=== PATIENT | female | born 1980 | race American Indian/Alaskan Native ===

== ENCOUNTER 2021-04-28 23:36 | Inpatient (IN) | payer SELFPAY ==
[2021-04-29] MEDS ORDERED: ONDANSETRON 4 MG/2 ML INJ IV ONE (01:50)
[2021-04-29] MEDS ORDERED: MORPHINE 4 MG/1 ML INJ IV ONE (01:50)
[2021-04-29 02:37] LABS: Hematocrit 28.5 % (30.3-42.9); Hemoglobin 8.8 gm/dl (10.1-14.3); Mean Corpuscular HGB Conc 31 % (30-34); Mean Corpuscular Volume 74 fl (79-97); Platelet Count 348 K/mm3 (140-440); Red Blood Count 3.87 M/mm3 (3.65-5.03); Red Cell Distribution Width 16.5 % (13.2-15.2)
[2021-04-29 02:51] LABS: Calcium 8.9 mg/dL (8.4-10.2)
[2021-04-29] MEDS ORDERED: SODIUM CHLORIDE 0.9% 1000 ML 1,000 ML IV ONE ×3 (02:54→05:03)
[2021-04-29] MEDS ORDERED: INSULIN REGULAR, HUMAN 100 UNITS/1 ML IV ONE ×2 (03:28→08:00)
--- NOTE | 2021-04-29 03:37 | Emergency Department Report ---
<RONEL DUBON - Last Filed: 04/29/21 05:27> ED General Adult HPI - General Chief complaint: Skin/Abscess/Foreign Body Stated complaint: FEVER INFECTED BOIL PAIN Time Seen by Provider: 04/29/21 01:24 - Related Data Previous Rx's Medication Instructions Recorded Last Taken Type Efinaconazole [Jublia] 1 applic TP QDAY #4 [email or web address] 03/12/20 Unknown Rx Allergies Allergy/AdvReac Type Severity Reaction Status Date / Time No Known Allergies Allergy Verified 04/29/21 05:23 ED Past Medical Hx - Medications Home Medications: Home Medications Medication Instructions Recorded Confirmed Last Taken Type Efinaconazole [Jublia] 1 applic TP QDAY #4 [email or web address] 03/12/20 Unknown Rx ED Medical Decision Making - Lab Data Result diagrams: 04/29/21 01:54 04/29/21 04:48 - Medical Decision Making I saw this patient in conjunction with Lionel Crum. The patient has a large area of cellulitis to the right buttock. She is diabetic. Labs show a leukocytosis of 22,000, mild lactic acidosis, hyperglycemia, and acute kidney injury. The patient has a mild elevated anion gap of 22 and some venous acidosis of 7.28 so the hospitalist service wants the patient treated as DKA and placed in the ICU. The patient had a CT scan of the abdomen and pelvis that shows cellulitis without evidence of a drainable abscess or soft tissue gas. The patient has been given insulin and IV antibiotics. She will be admitted to the hospital for further evaluation and treatment and was accepted by Dr Wilks. ED Disposition Clinical Impression: Cellulitis and abscess of buttock, Hyperglycemia due to diabetes mellitus, JOMAR (acute kidney injury) Disposition: 01 HOME / SELF CARE / HOMELESS Condition: Stable Instructions: Diabetes Mellitus Type 2 in Adults (ED) Referrals: PRIMARY CARE, [Primary Care Provider] - 3-5 Days <LIONEL CRUM - Last Filed: 04/29/21 06:20> ED General Adult HPI - General Source: patient Mode of arrival: Wheelchair Limitations: No Limitations - History of Present Illness Initial comments: 40-year-old -[place] female patient presents with complaints of right buttock pain x1 week. Patient states it began with a bump on her right inner buttock that has been worsening now with swelling and severe pain to the area. She admits to fever and feeling weak. Patient states her highest temp at home was 101.4. She has history of diabetes and is noncompliant with medication. She denies any other past medical history. No abdominal pain per patient. Severity scale (0 -10): 10 ED Review of Systems ROS: Stated complaint: FEVER INFECTED BOIL PAIN Other details as noted in HPI Constitutional: fever, malaise, weakness. denies: diaphoresis Respiratory: denies: cough, shortness of breath Genitourinary: denies: urgency, dysuria, frequency, hematuria Musculoskeletal: denies: back pain Skin: as per HPI, change in color Neurological: denies: headache ED Past Medical Hx - Past Medical History Previous Medical History?: Yes Hx Diabetes: Yes - Surgical History Past Surgical History?: Yes Additional Surgical History: Right Hip - Social History Smoking Status: Never Smoker Substance Use Type: None (Denies illicit drug use) ED Physical Exam - General Limitations: No Limitations General appearance: alert, in no apparent distress, obese - Head Head exam: Present: atraumatic, normocephalic - Eye Eye exam: Present: normal appearance. Absent: scleral icterus - Respiratory Respiratory exam: Present: normal lung sounds bilaterally. Absent: respiratory distress - Cardiovascular Cardiovascular Exam: Present: regular rate, normal rhythm - GI/Abdominal GI/Abdominal exam: Present: soft. Absent: tenderness - Neurological Exam Neurological exam: Present: alert, oriented X3 - Psychiatric Psychiatric exam: Present: normal affect, normal mood - Skin Skin exam: Present: warm, dry, intact, erythema (Large area of erythema and induration noted to right lower buttock with significant tenderness to palpation) ED Course Vital Signs 04/28/21 04/28/21 04/29/21 23:42 23:45 02:11 Temperature 99.7 F H 99.7 F H Pulse Rate 76 74 Respiratory 18 16 16 Rate Blood Pressure 90/46 Blood Pressure 90/46 [Left] O2 Sat by Pulse 98 98 Oximetry 04/29/21 04/29/21 04/29/21 03:36 04:00 04:16 Temperature Pulse Rate Respiratory Rate Blood Pressure Blood Pressure [Left] O2 Sat by Pulse 96 97 97 Oximetry 04/29/21 04/29/21 04/29/21 04:30 04:46 05:00 Temperature Pulse Rate Respiratory Rate Blood Pressure 99/51 Blood Pressure [Left] O2 Sat by Pulse 96 95 95 Oximetry ED Medical Decision Making - Lab Data Result diagrams: 04/29/21 01:54 04/29/21 04:48 - Radiology Data Radiology results: report reviewed CT ABDOMEN AND PELVIS WITHOUT CONTRAST INDICATION / CLINICAL INFORMATION: Severe RIGHT buttocks infection with fever.. TECHNIQUE: Axial CT images were obtained through the abdomen and pelvis without IV contrast. All CT scans at this location are performed using CT dose reduction for ALARA by means of automated exposure control. COMPARISON: None available. FINDINGS: LOWER CHEST: Linear bibasilar atelectasis. LIVER: No significant abnormality. GALLBLADDER: Mildly contracted containing small amount of pneumobilia. No calcified stones. BILE DUCTS: Mild pneumobilia but no retained gallstones or biliary ductal dilatation. PANCREAS: No significant abnormality. SPLEEN: No significant abnormality. ADRENALS: No significant abnormality. RIGHT KIDNEY / URETER: No significant abnormality. LEFT KIDNEY / URETER: No significant abnormality. STOMACH / SMALL BOWEL: No significant abnormality. COLON: Moderate amount of fecal material throughout the colon. No acute abnormality. APPENDIX: No significant abnormality. PERITONEUM: No free fluid. No free air. No fluid collection. LYMPH NODES: No significant adenopathy. AORTA / ARTERIES: No significant abnormality. IVC / VEINS: IVC filter is present. One of the limbs extends into the abdominal aorta as seen on axial series 5 images 87-89 109. In addition several of the anterior limbs extend into the transverse portion of the duodenum. URINARY BLADDER: No significant abnormality. REPRODUCTIVE ORGANS: No significant abnormality. ADDITIONAL FINDINGS: Moderate soft tissue edema and induration of the right buttock with associated skin thickening. No drainable fluid collection or soft tissue gas. SKELETAL SYSTEM: Healed right acetabular fracture with posterior reconstruction plate and anterior column screw. No acute osseous abnormality. No osseous destruction. IMPRESSION: 1. Moderate soft tissue edema and induration of the right buttock but no drainable abscess or soft tissue gas. 2. IVC filter with limbs extending into the abdominal aorta and duodenum as described above. IVC Filter Recommendation: IVC filters should be removed if possible when they are no longer clinically necessary. (1) Refer to the established IVC filter management plan; (2) If there is no established plan for the patient's IVC filter, consider referral to interventional/vascular clinician on a nonemergent basis for evaluation. - Medical Decision Making 40-year-old -[place] female patient presents with complaints of right buttock pain x1 week. Patient states it began with a bump on her right inner buttock that has been worsening now with swelling and severe pain to the area. She admits to fever and feeling weak. Patient states her highest temp at home was 101.4. She has history of diabetes and is noncompliant with medication. She denies any other past medical history. No abdominal pain per patient. Critical Care Time: Yes Critical care time in (mins) excluding proc time.: 35 Critical care attestation.: If time is entered above; I have spent that time in minutes in the direct care of this critically ill patient, excluding procedure time. Patient here for abscess and found to have significant cellulitis with possible sepsis and DKA CT and IV antibiotics ordered Some difficulty controlling pain Time spent consulting with supervising physician and hospitalist Patient to be admitted to CCU for DKA ED Disposition Is pt being admited?: Yes
--- NOTE | 2021-04-29 04:18 | Cat Scan Report ---
CT ABDOMEN AND PELVIS WITHOUT CONTRAST INDICATION / CLINICAL INFORMATION: Severe RIGHT buttocks infection with fever.. TECHNIQUE: Axial CT images were obtained through the abdomen and pelvis without IV contrast. All CT scans at this location are performed using CT dose reduction for ALARA by means of automated exposure control. COMPARISON: None available. FINDINGS: LOWER CHEST: Linear bibasilar atelectasis. LIVER: No significant abnormality. GALLBLADDER: Mildly contracted containing small amount of pneumobilia. No calcified stones. BILE DUCTS: Mild pneumobilia but no retained gallstones or biliary ductal dilatation. PANCREAS: No significant abnormality. SPLEEN: No significant abnormality. ADRENALS: No significant abnormality. RIGHT KIDNEY / URETER: No significant abnormality. LEFT KIDNEY / URETER: No significant abnormality. STOMACH / SMALL BOWEL: No significant abnormality. COLON: Moderate amount of fecal material throughout the colon. No acute abnormality. APPENDIX: No significant abnormality. PERITONEUM: No free fluid. No free air. No fluid collection. LYMPH NODES: No significant adenopathy. AORTA / ARTERIES: No significant abnormality. IVC / VEINS: IVC filter is present. One of the limbs extends into the abdominal aorta as seen on axia l series 5 images 87-89 109. In addition several of the anterior limbs extend into the transverse por tion of the duodenum. URINARY BLADDER: No significant abnormality. REPRODUCTIVE ORGANS: No significant abnormality. ADDITIONAL FINDINGS: Moderate soft tissue edema and induration of the right buttock with associated s kin thickening. No drainable fluid collection or soft tissue gas. SKELETAL SYSTEM: Healed right acetabular fracture with posterior reconstruction plate and anterior co lumn screw. No acute osseous abnormality. No osseous destruction. IMPRESSION: 1. Moderate soft tissue edema and induration of the right buttock but no drainable abscess or soft ti ssue gas. 2. IVC filter with limbs extending into the abdominal aorta and duodenum as described above. IVC Filt er Recommendation: IVC filters should be removed if possible when they are no longer clinically neces kendell. (1) Refer to the established IVC filter management plan; (2) If there is no established plan fo r the patient's IVC filter, consider referral to interventional/vascular clinician on a nonemergent b asis for evaluation. Signer Name: Carolyn Avila MD Signed: 04/29/2021 4:14 AM Workstation Name: [employer]
[2021-04-29 04:43] LABS: Anisocytosis 1+; Band Neutrophils # (Manual) 3.1 K/mm3; Hypochromasia 2+; Total Cells Counted 100
[2021-04-29 04:44] LABS: Platelet Estimate Consistent w Auto
[2021-04-29] MEDS ORDERED: oxyCODONE /ACETAMINOPHEN 5-325MG TAB PO ONE (05:16)
[2021-04-29 05:17] LABS: Calcium 8.1 mg/dL (8.4-10.2)
[2021-04-29] MEDS ORDERED: INSULIN REGULAR, HUMAN 100 UNITS in SODIUM CHLORIDE 0.9% 99 ML IV SCH (06:00)
[2021-04-29] MEDS ORDERED: DEXTROSE 50% IN WATER (25GM) 50 ML SYRINGE IV PRN (08:00)
[2021-04-29] MEDS ORDERED: D5W/0.45% NACL/KCL 20 MEQ 20 MEQ/1,000 ML BAG IV SCH (08:00)
[2021-04-29] MEDS: oxyCODONE /ACETAMINOPHEN 5-325MG TAB PO PRN (08:37)
[2021-04-29] MEDS ORDERED: NALOXONE 0.4 MG/1 ML INJ IV PRN (09:00)
[2021-04-29 09:05] LABS: Calcium 8.1 mg/dL (8.4-10.2)
[2021-04-29] MEDS ORDERED: FAMOTIDINE 20 MG/2 ML INJ IV SCH (10:00)
--- NOTE | 2021-04-29 10:19 | Event Note ---
Date: 04/29/21 Came bye to see patient not on IV insulin RN mentioned long acting insulin was given - discussed with hospitalist and she will re-consult if needed
[2021-04-29 11:26] LABS: Bacteria,Urine 4+ /HPF (Negative); Bilirubin,Urine NEG (Negative); Blood,Urine LG (Negative); Color,Urine Yellow (Yellow); Mucus,Urine 3+ /HPF
[2021-04-29 11:28] LABS: WBC,Urine > 182.0 /HPF (0.0-6.0)
[2021-04-29] MEDS: INSULIN REGULAR, HUMAN 100 UNITS in SODIUM CHLORIDE 0.9% 99 ML IV SCH (12:02)
[2021-04-29 12:06] LABS: Calcium 8.2 mg/dL (8.4-10.2)
[2021-04-29 12:37] LABS: Creatinine,Urine 123.4 mg/dL (0.1-20.0)
--- NOTE | 2021-04-29 13:58 | History and Physical Report ---
History of Present Illness Date of examination: 04/29/21 Date of admission: 04/29/21 05:06 Chief complaint: fever, R buttocks swelling History of present illness: Patient is a 40-year-old female with a history of uncontrolled type 2 diabetes who presented to the ED after 5 days of right buttock pain. She first noticed a bump on the right buttock. It increased in size and she was able to express pus from it. The pain became increasingly worse. She also reports increased fatigue, weakness and a fever to 101 at home. This is her first incident of this kind. She reports being noncompliant with insulin. She is supposed to be taking a basal, bolus regimen. She cannot recall the last time she used insulin. She prefers not to use it due to weight gain. On presentation blood pressure was 90/86. Labs were notable for WBC count 22.1, sodium 124, creatinine 2.4, lactate 2.2 and glucose of 570. CT abdomen pelvis showed moderate soft tissue edema and induration of the right buttock without abscess. She received a dose of clindamycin & 3 L fluid bolus. Medicine was consulted for admission for DKA and cellulitis. Past History Past Medical History: diabetes Social history: no significant social history Family history: no significant family history Medications and Allergies Allergies Allergy/AdvReac Type Severity Reaction Status Date / Time No Known Allergies Allergy Verified 04/29/21 05:23 Home Medications Medication Instructions Recorded Confirmed Last Taken Type Efinaconazole [Jublia] 1 applic TP QDAY #4 [email or web address] 03/12/20 Unknown Rx Active Meds: Active Medications Acetaminophen (Acetaminophen 325 Mg Tab) 650 mg PO Q6H PRN PRN Reason: Pain MILD(1-3)/Fever >100.5/GAUTAM Dextrose (Dextrose 50% In Water (25gm) 50 Ml Syringe) 0 ml IV Q30MIN PRN; Protocol PRN Reason: Hypoglycemia Famotidine (Famotidine 20 Mg/2 Ml Inj) 10 mg IV BID JOANNE Potassium Chloride/Dextrose/Sod Cl (D5w/0.45% Nacl/Kcl 20 Meq) 20 meq in 1,000 mls @ 125 mls/hr IV DIRECT JOANNE Insulin Human Regular 100 (units/ Sodium Chloride) 100 mls @ 1 mls/hr IV TITR JOANNE; Protocol Last Titration: 04/29/21 13:02 Dose: 7 units/hr, 7 mls/hr Documented by: Morphine Sulfate (Morphine 4 Mg/1 Ml Inj) 4 mg IV Q4H PRN PRN Reason: Pain , Severe (7-10) Naloxone HCl (Naloxone 0.4 Mg/1 Ml Inj) 0.1 mg IV Q2MIN PRN PRN Reason: Res Rate </= 8 or 02 SAT < 92% Oxycodone/Acetaminophen (Oxycodone /Acetaminophen 5-325mg Tab) 1 tab PO Q6H PRN PRN Reason: Pain, Moderate (4-6) Last Admin: 04/29/21 08:37 Dose: 1 tab Documented by: Sodium Chloride (Sodium Chloride 0.9% 10 Ml Flush Syringe) 10 ml IV BID JOANNE Last Admin: 04/29/21 10:22 Dose: 10 ml Documented by: Sodium Chloride (Sodium Chloride 0.9% 10 Ml Flush Syringe) 10 ml IV PRN PRN PRN Reason: LINE FLUSH Review of Systems Constitutional: fever, fatigue, lethargy Breasts: deferred Musculoskeletal: other (L shoulder pain) Endocrine: excessive thirst Exam - Physical Exam Narrative exam: GENERAL: Obese, in no acute distress. HEENT: Normocephalic. Atraumatic. CHEST/LUNGS: CTAB on room air HEART/CARDIOVASCULAR: Tachycardic. No murmur, rubs or gallops appreciated. ABDOMEN: +BS. NT/ND. NEURO: No focal motor deficit appreciated. MUSCULOSKELETAL: No joint effusion EXTREMITIES: No cyanosis, clubbing or edema. PSYCH: Cooperative. - Constitutional Vitals: Temp Pulse Resp BP Pulse Ox 99.7 F H 74 16 98/52 94 04/28/21 23:45 04/28/21 23:45 04/29/21 02:11 04/29/21 09:30 04/29/21 09:30 Results - Labs CBC & Chem 7: 04/30/21 04:48 04/30/21 07:33 Labs: Laboratory Last Values WBC 22.1 K/mm3 (4.5-11.0) H 04/29/21 01:54 RBC 3.87 M/mm3 (3.65-5.03) 04/29/21 01:54 Hgb 8.8 gm/dl (10.1-14.3) L 04/29/21 01:54 Hct 28.5 % (30.3-42.9) L 04/29/21 01:54 MCV 74 fl (79-97) L 04/29/21 01:54 MCH 23 pg (28-32) L 04/29/21 01:54 MCHC 31 % (30-34) 04/29/21 01:54 RDW 16.5 % (13.2-15.2) H 04/29/21 01:54 Plt Count 348 K/mm3 (140-440) 04/29/21 01:54 Add Manual Diff Complete 04/29/21 01:54 Total Counted 100 04/29/21 01:54 Seg Neuts % (Manual) 71.0 % (40.0-70.0) H 04/29/21 01:54 Band Neutrophils % 14.0 % 04/29/21 01:54 Lymphocytes % (Manual) 5.0 % (13.4-35.0) L 04/29/21 01:54 Monocytes % (Manual) 10.0 % (0.0-7.3) H 04/29/21 01:54 Nucleated RBC % Not Reportable 04/29/21 01:54 Seg Neutrophils # Man 15.7 K/mm3 (1.8-7.7) H 04/29/21 01:54 Band Neutrophils # 3.1 K/mm3 04/29/21 01:54 Lymphocytes # (Manual) 1.1 K/mm3 (1.2-5.4) L 04/29/21 01:54 Abs React Lymphs (Man) 0.0 K/mm3 04/29/21 01:54 Monocytes # (Manual) 2.2 K/mm3 (0.0-0.8) H 04/29/21 01:54 Eosinophils # (Manual) 0.0 K/mm3 (0.0-0.4) 04/29/21 01:54 Basophils # (Manual) 0.0 K/mm3 (0.0-0.1) 04/29/21 01:54 Metamyelocytes # 0.0 K/mm3 04/29/21 01:54 Myelocytes # 0.0 K/mm3 04/29/21 01:54 Promyelocytes # 0.0 K/mm3 04/29/21 01:54 Blast Cells # 0.0 K/mm3 04/29/21 01:54 WBC Morphology Not Reportable 04/29/21 01:54 Hypersegmented Neuts Not Reportable 04/29/21 01:54 Hyposegmented Neuts Not Reportable 04/29/21 01:54 Hypogranular Neuts Not Reportable 04/29/21 01:54 Smudge Cells Not Reportable 04/29/21 01:54 Toxic Granulation Not Reportable 04/29/21 01:54 Toxic Vacuolation Not Reportable 04/29/21 01:54 Dohle Bodies Not Reportable 04/29/21 01:54 Pelger-Huet Anomaly Not Reportable 04/29/21 01:54 Randa Rods Not Reportable 04/29/21 01:54 Platelet Estimate Consistent w auto 04/29/21 01:54 Clumped Platelets Not Reportable 04/29/21 01:54 Plt Clumps, EDTA Not Reportable 04/29/21 01:54 Large Platelets Not Reportable 04/29/21 01:54 Giant Platelets Not Reportable 04/29/21 01:54 Platelet Satelliting Not Reportable 04/29/21 01:54 Plt Morphology Comment Not Reportable 04/29/21 01:54 RBC Morphology Not Reportable 04/29/21 01:54 Dimorphic RBCs Not Reportable 04/29/21 01:54 Polychromasia Not Reportable 04/29/21 01:54 Hypochromasia 2+ 04/29/21 01:54 Poikilocytosis Not Reportable 04/29/21 01:54 Anisocytosis 1+ 04/29/21 01:54 Microcytosis 1+ 04/29/21 01:54 Macrocytosis Not Reportable 04/29/21 01:54 Spherocytes Not Reportable 04/29/21 01:54 Pappenheimer Bodies Not Reportable 04/29/21 01:54 Sickle Cells Not Reportable 04/29/21 01:54 Target Cells Not Reportable 04/29/21 01:54 Tear Drop Cells Not Reportable 04/29/21 01:54 Ovalocytes Not Reportable 04/29/21 01:54 Helmet Cells Not Reportable 04/29/21 01:54 Donaldson-Parlier Bodies Not Reportable 04/29/21 01:54 [place] Rings Not Reportable 04/29/21 01:54 [place] Cells Not Reportable 04/29/21 01:54 Bite Cells Not Reportable 04/29/21 01:54 Crenated Cell Not Reportable 04/29/21 01:54 Elliptocytes Not Reportable 04/29/21 01:54 Acanthocytes (Spur) Not Reportable 04/29/21 01:54 Rouleaux Not Reportable 04/29/21 01:54 Hemoglobin C Crystals Not Reportable 04/29/21 01:54 Schistocytes Not Reportable 04/29/21 01:54 Malaria parasites Not Reportable 04/29/21 01:54 [place] Bodies Not Reportable 04/29/21 01:54 Hem Pathologist Commnt No 04/29/21 01:54 VBG pH 7.282 (7.320-7.420) L 04/29/21 04:48 Sodium 125 mmol/L (137-145) L 04/29/21 11:22 Potassium 4.7 mmol/L (3.6-5.0) 04/29/21 11:22 Chloride 94.0 mmol/L (98-107) L 04/29/21 11:22 Carbon Dioxide 12 mmol/L (22-30) L 04/29/21 11:22 Anion Gap 24 mmol/L 04/29/21 11:22 BUN 36 mg/dL (7-17) H 04/29/21 11:22 Creatinine 2.3 mg/dL (0.6-1.2) H 04/29/21 11:22 Estimated GFR 29 ml/min 04/29/21 11:22 BUN/Creatinine Ratio 16 % 04/29/21 11:22 Glucose 368 mg/dL (65-100) H 04/29/21 11:22 POC Glucose 367 mg/dL (70-105) H 04/29/21 13:41 Hemoglobin A1c 15.1 % (4-6) H 04/29/21 08:29 Lactic Acid 2.60 mmol/L (0.7-2.0) H* 04/29/21 08:29 Calcium 8.2 mg/dL (8.4-10.2) L 04/29/21 11:22 Phosphorus 3.80 mg/dL (2.5-4.5) 04/29/21 08:29 Magnesium 1.80 mg/dL (1.7-2.3) 04/29/21 08:29 Total Bilirubin 0.40 mg/dL (0.1-1.2) 04/29/21 01:54 AST 6 units/L (5-40) 04/29/21 01:54 ALT 7 units/L (7-56) 04/29/21 01:54 Alkaline Phosphatase 174 units/L (35-129) H 04/29/21 01:54 Total Protein 7.7 g/dL (6.3-8.2) 04/29/21 01:54 Albumin 3.0 g/dL (3.9-5) L 04/29/21 01:54 Albumin/Globulin Ratio 0.6 % 04/29/21 01:54 HCG, Qual Negative (Negative) 04/29/21 01:54 Urine Color Yellow (Yellow) 04/29/21 Unknown Urine Turbidity Turbid (Clear) 04/29/21 Unknown Urine pH 5.0 (5.0-7.0) 04/29/21 Unknown Ur Specific [place] 1.013 (1.003-1.030) 04/29/21 Unknown Urine Protein 100 mg/dl mg/dL (Negative) 04/29/21 Unknown Urine Glucose (UA) >=500 mg/dL (Negative) 04/29/21 Unknown Urine Ketones Tr mg/dL (Negative) 04/29/21 Unknown Urine Blood Lg (Negative) 04/29/21 Unknown Urine Nitrite Neg (Negative) 04/29/21 Unknown Urine Bilirubin Neg (Negative) 04/29/21 Unknown Urine Urobilinogen 4.0 mg/dL (<2.0) 04/29/21 Unknown Ur Leukocyte Esterase Mod (Negative) 04/29/21 Unknown Urine WBC (Auto) > 182.0 /HPF (0.0-6.0) H 04/29/21 Unknown Urine RBC (Auto) 15.0 /HPF (0.0-6.0) 04/29/21 Unknown U Epithel Cells (Auto) 11.0 /HPF (0-13.0) 04/29/21 Unknown Urine Bacteria (Auto) 4+ /HPF (Negative) 04/29/21 Unknown Urine Mucus 3+ /HPF 04/29/21 Unknown Urine Creatinine 123.4 mg/dL (0.1-20.0) H 04/29/21 Unknown Urine Sodium 25 mmol/L 04/29/21 Unknown Microbiology: Microbiology 04/29/21 03:43 Peripheral/Venous Blood Culture - Preliminary Culture in Progress 04/29/21 03:05 Peripheral/Venous Blood Culture - Preliminary Culture in Progress - Imaging and Cardiology CT scan - abdomen: report reviewed, image reviewed CT scan - pelvis: report reviewed, image reviewed Assessment and Plan Assessment and plan: 40-year-old female history of type 2 diabetes who presented for right buttock pain. Found to be in DKA and to have right gluteal cellulitis. DKA protocol initiated and patient admitted to ICU. #Diabetic ketoacidosis -A1c 15.5% -Patient reported noncompliance with insulin due to weight gain -DKA protocol started -Serial BMPs until anion gap is less than 12 -Critical care consulted, assistance appreciated #Acute kidney injury -SCr 2.3, baseline unknown -FENa 0.4%, indicative of prerenal etiology -Likely vasomotor nephropathy versus damage secondary to uncontrolled diabetes -Renally adjust medications, avoid nephrotoxins -Nephrology consult #Anion gap metabolic acidosis -Likely secondary to diabetic ketoacidosis and lactic acidosis #Elevated lactate -Lactate 2.4 -Did not improve after IV fluid boluses -Likely secondary to DKA and current infection -We will repeat until within normal limits #Right gluteal cellulitis -Clindamycin for now -Surgery consulted for concerns for Cindy's gangrene, recs appreciated #Hyponatremia -Na 124, corrected for glucose 131 -Likely secondary to hypovolemia and hyperglycemia -We will continue to monitor Advance Directives: No VTE prophylaxis?: Chemical Plan of care discussed with patient/family: Yes
[2021-04-29 14:22] LABS: Calcium 8.2 mg/dL (8.4-10.2)
[2021-04-29] MEDS: CLINDAMYCIN 600 MG/50 mL 600 MG/50 ML BAG IV SCH (15:00)
[2021-04-29 15:57] LABS: Calcium 8.1 mg/dL (8.4-10.2)
--- NOTE | 2021-04-29 16:16 | Consultation ---
History of Present Illness Consult date: 04/29/21 Chief complaint: Gluteal pain - History of present illness History of present illness: 40-year-old female with a past medical history of poorly controlled diabetes who presents to the emergency room with 5 days of worsening gluteal and perineal pain. She states that she had a small cyst of the right buttock area in the past which was drained. She states she was febrile at home. No abdominal pain, chest pain, shortness of breath, nausea, vomiting. Work-up in the emergency room revealed blood sugar in the five hundreds. Patient was admitted to the ICU and started on an insulin drip. CT scan of the abdomen and pelvis was performed which showed right gluteal cellulitis without abscess. Surgery is consulted for evaluation. Per ER notes patient is noncompliant with medication for her diabetes. She states she is on insulin at home. Her primary care physician is at [place]. Past History Past Medical History: diabetes Social history: no significant social history Family history: no significant family history Medications and Allergies Allergies Allergy/AdvReac Type Severity Reaction Status Date / Time No Known Allergies Allergy Verified 04/29/21 05:23 Home Medications Medication Instructions Recorded Confirmed Last Taken Type Efinaconazole [Jublia] 1 applic TP QDAY #4 [email or web address] 03/12/20 Unknown Rx Active Meds: Active Medications Acetaminophen (Acetaminophen 325 Mg Tab) 650 mg PO Q6H PRN PRN Reason: Pain MILD(1-3)/Fever >100.5/GAUTAM Dextrose (Dextrose 50% In Water (25gm) 50 Ml Syringe) 0 ml IV Q30MIN PRN; P rotocol PRN Reason: Hypoglycemia Famotidine (Famotidine 20 Mg/2 Ml Inj) 10 mg IV BID JOANNE Potassium Chloride/Dextrose/Sod Cl (D5w/0.45% Nacl/Kcl 20 Meq) 20 meq in 1,000 mls @ 125 mls/hr IV DIRECT JOANNE Insulin Human Regular 100 (units/ Sodium Chloride) 100 mls @ 1 mls/hr IV TITR JOANNE; Protocol Last Titration: 04/29/21 13:02 Dose: 7 units/hr, 7 mls/hr Documented by: Clindamycin HCl (Cleocin 600 Mg/50 Ml) 600 mg in 50 mls @ 100 mls/hr IV Q8H JOANNE; Protocol Morphine Sulfate (Morphine 4 Mg/1 Ml Inj) 4 mg IV Q4H PRN PRN Reason: Pain , Severe (7-10) Naloxone HCl (Naloxone 0.4 Mg/1 Ml Inj) 0.1 mg IV Q2MIN PRN PRN Reason: Res Rate </= 8 or 02 SAT < 92% Oxycodone/Acetaminophen (Oxycodone /Acetaminophen 5-325mg Tab) 1 tab PO Q6H PRN PRN Reason: Pain, Moderate (4-6) Last Admin: 04/29/21 08:37 Dose: 1 tab Documented by: Sodium Chloride (Sodium Chloride 0.9% 10 Ml Flush Syringe) 10 ml IV BID JOANNE Last Admin: 04/29/21 10:22 Dose: 10 ml Documented by: Sodium Chloride (Sodium Chloride 0.9% 10 Ml Flush Syringe) 10 ml IV PRN PRN PRN Reason: LINE FLUSH Review of Systems All systems: negative (10 point ROS performed and negative except for that listed in HPI) Exam Vital Signs Temp Pulse Resp BP Pulse Ox 99.7 F H 76 18 90/46 98 04/28/21 23:42 04/28/21 23:42 04/28/21 23:42 04/28/21 23:42 04/28/21 23:42 Narrative exam: Gen.: Awake, alert, oriented x3. Appears sleepy. ENT: Trachea midline. No lymphadenopathy. No scleral icterus or conjunctival pallor CV: S1, S2 present Respiratory: No audible wheezes Abdomen: Soft, nondistended, nontender. No rebound, rigidity, guarding Extremities: No clubbing, cyanosis, edema Gluteal: RN present in room: There is sloughing of the skin of approximately 5 cm. The skin is not necrotic. There is mild tenderness deep palpation of the right intergluteal region and the perineum without obvious induration, fluctuance, cellulitis. No crepitus. No open wounds. No drainage Results - Labs 04/29/21 01:54 04/29/21 15:28 Abnormal lab results 04/29/21 04/29/21 04/29/21 Range/Units 01:54 01:54 03:05 WBC 22.1 H (4.5-11.0) K/mm3 Hgb 8.8 L (10.1-14.3) gm/dl Hct 28.5 L (30.3-42.9) % MCV 74 L (79-97) fl MCH 23 L (28-32) pg RDW 16.5 H (13.2-15.2) % Seg Neuts % (Manual) 71.0 H (40.0-70.0) % Lymphocytes % (Manual) 5.0 L (13.4-35.0) % Monocytes % (Manual) 10.0 H (0.0-7.3) % Seg Neutrophils # Man 15.7 H (1.8-7.7) K/mm3 Lymphocytes # (Manual) 1.1 L (1.2-5.4) K/mm3 Monocytes # (Manual) 2.2 H (0.0-0.8) K/mm3 VBG pH (7.320-7.420) Sodium 124 L (137-145) mmol/L Chloride 88.7 L (98-107) mmol/L Carbon Dioxide 19 L (22-30) mmol/L BUN 33 H (7-17) mg/dL Creatinine 2.3 H (0.6-1.2) mg/dL Glucose 563 H* (65-100) mg/dL POC Glucose (70-105) mg/dL Hemoglobin A1c (4-6) % Lactic Acid 2.40 H* (0.7-2.0) mmol/L Calcium (8.4-10.2) mg/dL Alkaline Phosphatase 174 H (35-129) units/L Albumin 3.0 L (3.9-5) g/dL Urine WBC (Auto) (0.0-6.0) /HPF Urine Creatinine (0.1-20.0) mg/dL 04/29/21 04/29/21 04/29/21 Range/Units 04:48 04:48 04:48 WBC (4.5-11.0) K/mm3 Hgb (10.1-14.3) gm/dl Hct (30.3-42.9) % MCV (79-97) fl MCH (28-32) pg RDW (13.2-15.2) % Seg Neuts % (Manual) (40.0-70.0) % Lymphocytes % (Manual) (13.4-35.0) % Monocytes % (Manual) (0.0-7.3) % Seg Neutrophils # Man (1.8-7.7) K/mm3 Lymphocytes # (Manual) (1.2-5.4) K/mm3 Monocytes # (Manual) (0.0-0.8) K/mm3 VBG pH 7.282 L (7.320-7.420) Sodium 124 L (137-145) mmol/L Chloride 89.3 L (98-107) mmol/L Carbon Dioxide 18 L (22-30) mmol/L BUN 35 H (7-17) mg/dL Creatinine 2.4 H (0.6-1.2) mg/dL Glucose 570 H* (65-100) mg/dL POC Glucose (70-105) mg/dL Hemoglobin A1c (4-6) % Lactic Acid 2.20 H* (0.7-2.0) mmol/L Calcium 8.1 L (8.4-10.2) mg/dL Alkaline Phosphatase (35-129) units/L Albumin (3.9-5) g/dL Urine WBC (Auto) (0.0-6.0) /HPF Urine Creatinine (0.1-20.0) mg/dL 04/29/21 04/29/21 04/29/21 Range/Units 07:04 08:23 08:29 WBC (4.5-11.0) K/mm3 Hgb (10.1-14.3) gm/dl Hct (30.3-42.9) % MCV (79-97) fl MCH (28-32) pg RDW (13.2-15.2) % Seg Neuts % (Manual) (40.0-70.0) % Lymphocytes % (Manual) (13.4-35.0) % Monocytes % (Manual) (0.0-7.3) % Seg Neutrophils # Man (1.8-7.7) K/mm3 Lymphocytes # (Manual) (1.2-5.4) K/mm3 Monocytes # (Manual) (0.0-0.8) K/mm3 VBG pH (7.320-7.420) Sodium (137-145) mmol/L Chloride (98-107) mmol/L Carbon Dioxide (22-30) mmol/L BUN (7-17) mg/dL Creatinine (0.6-1.2) mg/dL Glucose (65-100) mg/dL POC Glucose 571 H 426 H (70-105) mg/dL Hemoglobin A1c (4-6) % Lactic Acid 2.60 H* (0.7-2.0) mmol/L Calcium (8.4-10.2) mg/dL Alkaline Phosphatase (35-129) units/L Albumin (3.9-5) g/dL Urine WBC (Auto) (0.0-6.0) /HPF Urine Creatinine (0.1-20.0) mg/dL 04/29/21 04/29/21 04/29/21 Range/Units 08:29 08:29 11:22 WBC (4.5-11.0) K/mm3 Hgb (10.1-14.3) gm/dl Hct (30.3-42.9) % MCV (79-97) fl MCH (28-32) pg RDW (13.2-15.2) % Seg Neuts % (Manual) (40.0-70.0) % Lymphocytes % (Manual) (13.4-35.0) % Monocytes % (Manual) (0.0-7.3) % Seg Neutrophils # Man (1.8-7.7) K/mm3 Lymphocytes # (Manual) (1.2-5.4) K/mm3 Monocytes # (Manual) (0.0-0.8) K/mm3 VBG pH (7.320-7.420) Sodium 126 L 125 L (137-145) mmol/L Chloride 91.9 L 94.0 L (98-107) mmol/L Carbon Dioxide 15 L 12 L (22-30) mmol/L BUN 35 H 36 H (7-17) mg/dL Creatinine 2.3 H 2.3 H (0.6-1.2) mg/dL Glucose 429 H 368 H (65-100) mg/dL POC Glucose (70-105) mg/dL Hemoglobin A1c 15.1 H (4-6) % Lactic Acid (0.7-2.0) mmol/L Calcium 8.1 L 8.2 L (8.4-10.2) mg/dL Alkaline Phosphatase (35-129) units/L Albumin (3.9-5) g/dL Urine WBC (Auto) (0.0-6.0) /HPF Urine Creatinine (0.1-20.0) mg/dL 11/09/21 11/09/21 11/09/21 Range/Units 12:00 13:41 13:43 WBC (4.5-11.0) K/mm3 Hgb (10.1-14.3) gm/dl Hct (30.3-42.9) % MCV (79-97) fl MCH (28-32) pg RDW (13.2-15.2) % Seg Neuts % (Manual) (40.0-70.0) % Lymphocytes % (Manual) (13.4-35.0) % Monocytes % (Manual) (0.0-7.3) % Seg Neutrophils # Man (1.8-7.7) K/mm3 Lymphocytes # (Manual) (1.2-5.4) K/mm3 Monocytes # (Manual) (0.0-0.8) K/mm3 VBG pH (7.320-7.420) Sodium 126 L (137-145) mmol/L Chloride 93.3 L (98-107) mmol/L Carbon Dioxide 14 L (22-30) mmol/L BUN 38 H (7-17) mg/dL Creatinine 2.4 H (0.6-1.2) mg/dL Glucose 399 H (65-100) mg/dL POC Glucose 395 H 367 H (70-105) mg/dL Hemoglobin A1c (4-6) % Lactic Acid (0.7-2.0) mmol/L Calcium 8.2 L (8.4-10.2) mg/dL Alkaline Phosphatase (35-129) units/L Albumin (3.9-5) g/dL Urine WBC (Auto) (0.0-6.0) /HPF Urine Creatinine (0.1-20.0) mg/dL 04/29/21 04/29/21 04/29/21 Range/Units 15:11 15:28 Unknown WBC (4.5-11.0) K/mm3 Hgb (10.1-14.3) gm/dl Hct (30.3-42.9) % MCV (79-97) fl MCH (28-32) pg RDW (13.2-15.2) % Seg Neuts % (Manual) (40.0-70.0) % Lymphocytes % (Manual) (13.4-35.0) % Monocytes % (Manual) (0.0-7.3) % Seg Neutrophils # Man (1.8-7.7) K/mm3 Lymphocytes # (Manual) (1.2-5.4) K/mm3 Monocytes # (Manual) (0.0-0.8) K/mm3 VBG pH (7.320-7.420) Sodium 124 L (137-145) mmol/L Chloride 93.2 L (98-107) mmol/L Carbon Dioxide 16 L (22-30) mmol/L BUN 37 H (7-17) mg/dL Creatinine 2.6 H (0.6-1.2) mg/dL Glucose 379 H (65-100) mg/dL POC Glucose 356 H (70-105) mg/dL Hemoglobin A1c (4-6) % Lactic Acid (0.7-2.0) mmol/L Calcium 8.1 L (8.4-10.2) mg/dL Alkaline Phosphatase (35-129) units/L Albumin (3.9-5) g/dL Urine WBC (Auto) > 182.0 H (0.0-6.0) /HPF Urine Creatinine (0.1-20.0) mg/dL 04/29/21 Range/Units Unknown WBC (4.5-11.0) K/mm3 Hgb (10.1-14.3) gm/dl Hct (30.3-42.9) % MCV (79-97) fl MCH (28-32) pg RDW (13.2-15.2) % Seg Neuts % (Manual) (40.0-70.0) % Lymphocytes % (Manual) (13.4-35.0) % Monocytes % (Manual) (0.0-7.3) % Seg Neutrophils # Man (1.8-7.7) K/mm3 Lymphocytes # (Manual) (1.2-5.4) K/mm3 Monocytes # (Manual) (0.0-0.8) K/mm3 VBG pH (7.320-7.420) Sodium (137-145) mmol/L Chloride (98-107) mmol/L Carbon Dioxide (22-30) mmol/L BUN (7-17) mg/dL Creatinine (0.6-1.2) mg/dL Glucose (65-100) mg/dL POC Glucose (70-105) mg/dL Hemoglobin A1c (4-6) % Lactic Acid (0.7-2.0) mmol/L Calcium (8.4-10.2) mg/dL Alkaline Phosphatase (35-129) units/L Albumin (3.9-5) g/dL Urine WBC (Auto) (0.0-6.0) /HPF Urine Creatinine 123.4 H (0.1-20.0) mg/dL Diabetes panel 04/29/21 04/29/21 04/29/21 Range/Units 01:54 04:48 08:29 Sodium 124 L 124 L 126 L (137-145) mmol/L Potassium 4.2 4.9 4.0 (3.6-5.0) mmol/L Chloride 88.7 L 89.3 L 91.9 L (98-107) mmol/L Carbon Dioxide 19 L 18 L 15 L (22-30) mmol/L BUN 33 H 35 H 35 H (7-17) mg/dL Creatinine 2.3 H 2.4 H 2.3 H (0.6-1.2) mg/dL Glucose 563 H* 570 H* 429 H (65-100) mg/dL Hemoglobin A1c (4-6) % Calcium 8.9 8.1 L 8.1 L (8.4-10.2) mg/dL AST 6 (5-40) units/L ALT 7 (7-56) units/L Alkaline Phosphatase 174 H (35-129) units/L Total Protein 7.7 (6.3-8.2) g/dL Albumin 3.0 L (3.9-5) g/dL 04/29/21 04/29/21 04/29/21 Range/Units 08:29 11:22 13:43 Sodium 125 L 126 L (137-145) mmol/L Potassium 4.7 4.5 (3.6-5.0) mmol/L Chloride 94.0 L 93.3 L (98-107) mmol/L Carbon Dioxide 12 L 14 L (22-30) mmol/L BUN 36 H 38 H (7-17) mg/dL Creatinine 2.3 H 2.4 H (0.6-1.2) mg/dL Glucose 368 H 399 H (65-100) mg/dL Hemoglobin A1c 15.1 H (4-6) % Calcium 8.2 L 8.2 L (8.4-10.2) mg/dL AST (5-40) units/L ALT (7-56) units/L Alkaline Phosphatase (35-129) units/L Total Protein (6.3-8.2) g/dL Albumin (3.9-5) g/dL 04/29/21 Range/Units 15:28 Sodium 124 L (137-145) mmol/L Potassium 4.6 (3.6-5.0) mmol/L Chloride 93.2 L (98-107) mmol/L Carbon Dioxide 16 L (22-30) mmol/L BUN 37 H (7-17) mg/dL Creatinine 2.6 H (0.6-1.2) mg/dL Glucose 379 H (65-100) mg/dL Hemoglobin A1c (4-6) % Calcium 8.1 L (8.4-10.2) mg/dL AST (5-40) units/L ALT (7-56) units/L Alkaline Phosphatase (35-129) units/L Total Protein (6.3-8.2) g/dL Albumin (3.9-5) g/dL Calcium panel 04/29/21 04/29/21 04/29/21 Range/Units 01:54 04:48 08:29 Calcium 8.9 8.1 L (8.4-10.2) mg/dL Phosphorus 3.80 (2.5-4.5) mg/dL Albumin 3.0 L (3.9-5) g/dL 04/29/21 04/29/21 04/29/21 Range/Units 08:29 11:22 13:43 Calcium 8.1 L 8.2 L 8.2 L (8.4-10.2) mg/dL Phosphorus (2.5-4.5) mg/dL Albumin (3.9-5) g/dL 04/29/21 Range/Units 15:28 Calcium 8.1 L (8.4-10.2) mg/dL Phosphorus (2.5-4.5) mg/dL Albumin (3.9-5) g/dL Pituitary panel 04/29/21 04/29/21 04/29/21 Range/Units 01:54 04:48 08:29 Sodium 124 L 124 L 126 L (137-145) mmol/L Potassium 4.2 4.9 4.0 (3.6-5.0) mmol/L Chloride 88.7 L 89.3 L 91.9 L (98-107) mmol/L Carbon Dioxide 19 L 18 L 15 L (22-30) mmol/L BUN 33 H 35 H 35 H (7-17) mg/dL Creatinine 2.3 H 2.4 H 2.3 H (0.6-1.2) mg/dL Glucose 563 H* 570 H* 429 H (65-100) mg/dL Calcium 8.9 8.1 L 8.1 L (8.4-10.2) mg/dL 04/29/21 04/29/21 04/29/21 Range/Units 11:22 13:43 15:28 Sodium 125 L 126 L 124 L (137-145) mmol/L Potassium 4.7 4.5 4.6 (3.6-5.0) mmol/L Chloride 94.0 L 93.3 L 93.2 L (98-107) mmol/L Carbon Dioxide 12 L 14 L 16 L (22-30) mmol/L BUN 36 H 38 H 37 H (7-17) mg/dL Creatinine 2.3 H 2.4 H 2.6 H (0.6-1.2) mg/dL Glucose 368 H 399 H 379 H (65-100) mg/dL Calcium 8.2 L 8.2 L 8.1 L (8.4-10.2) mg/dL Adrenal panel 04/29/21 04/29/21 04/29/21 Range/Units 01:54 04:48 08:29 Sodium 124 L 124 L 126 L (137-145) mmol/L Potassium 4.2 4.9 4.0 (3.6-5.0) mmol/L Chloride 88.7 L 89.3 L 91.9 L (98-107) mmol/L Carbon Dioxide 19 L 18 L 15 L (22-30) mmol/L BUN 33 H 35 H 35 H (7-17) mg/dL Creatinine 2.3 H 2.4 H 2.3 H (0.6-1.2) mg/dL Glucose 563 H* 570 H* 429 H (65-100) mg/dL Calcium 8.9 8.1 L 8.1 L (8.4-10.2) mg/dL Total Bilirubin 0.40 (0.1-1.2) mg/dL AST 6 (5-40) units/L ALT 7 (7-56) units/L Alkaline Phosphatase 174 H (35-129) units/L Total Protein 7.7 (6.3-8.2) g/dL Albumin 3.0 L (3.9-5) g/dL 04/29/21 04/29/21 04/29/21 Range/Units 11:22 13:43 15:28 Sodium 125 L 126 L 124 L (137-145) mmol/L Potassium 4.7 4.5 4.6 (3.6-5.0) mmol/L Chloride 94.0 L 93.3 L 93.2 L (98-107) mmol/L Carbon Dioxide 12 L 14 L 16 L (22-30) mmol/L BUN 36 H 38 H 37 H (7-17) mg/dL Creatinine 2.3 H 2.4 H 2.6 H (0.6-1.2) mg/dL Glucose 368 H 399 H 379 H (65-100) mg/dL Calcium 8.2 L 8.2 L 8.1 L (8.4-10.2) mg/dL Total Bilirubin (0.1-1.2) mg/dL AST (5-40) units/L ALT (7-56) units/L Alkaline Phosphatase (35-129) units/L Total Protein (6.3-8.2) g/dL Albumin (3.9-5) g/dL - Imaging CT scan - abdomen: report reviewed, image reviewed CT scan - pelvis: report reviewed, image reviewed Assessment and Plan 40 yo F with 1. right gluteal cellulitis 2. uncontrolled DM - DKA, HbA1C 15.5 Plan: 1. on insulin gtt and blood glucose monitoring protocol 2. NPO 3. IVF 4. IVF abx 5. DVT ppx 6. repeat labs in am -monitor sodium 7. No obvious abscess on exam. If no improvement, may need repeat CT vs exploration/drainage in [place] Thank you for this consultation. Please call with any questions or concerns. Evaluation and treatment of this patient was during the time of the national and state emergency arising from COVID19 coronavirus pandemic. Treatment and procedures performed meet the current and available best practice and guidelines for patient during the COVID pandemic.
[2021-04-29] MEDS ORDERED: SODIUM CHLORIDE 0.9% 1000 ML 1,000 ML IV SCH (17:45)
[2021-04-29] MEDS ORDERED: VANCOMYCIN PHARMACY TO DOSE IV SCH (18:00)
[2021-04-29 18:04] LABS: Calcium 8.2 mg/dL (8.4-10.2)
[2021-04-29] MEDS ORDERED: VANCOMYCIN 1,750 MG in SODIUM CHLORIDE 0.9% 500 ML 500 ML IV SCH (18:30)
[2021-04-29] MEDS: D5W/0.9% NACL 1,000 ML IV SCH (20:17)
[2021-04-29 21:45] LABS: Calcium 8.6 mg/dL (8.4-10.2)
[2021-04-29] MEDS: FAMOTIDINE 20 MG/2 ML INJ IV SCH (22:05)
[2021-04-30] MEDS: CLINDAMYCIN 600 MG/50 mL 600 MG/50 ML BAG IV SCH ×3 (00:12→18:25)
[2021-04-30 01:17] LABS: Calcium 8.4 mg/dL (8.4-10.2)
[2021-04-30] MEDS: INSULIN REGULAR, HUMAN 100 UNITS in SODIUM CHLORIDE 0.9% 99 ML IV SCH (03:07)
[2021-04-30] MEDS: ACETAMINOPHEN 325 MG TAB PO PRN (03:49)
[2021-04-30 05:00] LABS: Hematocrit 25.8 % (30.3-42.9); Hemoglobin 8.2 gm/dl (10.1-14.3); Mean Corpuscular HGB Conc 32 % (30-34); Mean Corpuscular Volume 73 fl (79-97); Platelet Count 331 K/mm3 (140-440); Red Blood Count 3.56 M/mm3 (3.65-5.03)
[2021-04-30 05:23] LABS: Calcium 8.3 mg/dL (8.4-10.2)
[2021-04-30 06:50] LABS: Anisocytosis 1+; Band Neutrophils # (Manual) 0.2 K/mm3; Dohle Bodies Few; Hypochromasia 1+; Platelet Estimate Consistent w Auto; Total Cells Counted 100; Toxic Granulation 1+
[2021-04-30 08:10] LABS: Calcium 8.3 mg/dL (8.4-10.2)
[2021-04-30] MEDS: D5W/0.9% NACL 1,000 ML IV SCH (08:54)
[2021-04-30] MEDS: FAMOTIDINE 20 MG/2 ML INJ IV SCH (09:00)
[2021-04-30] MEDS ORDERED: INSULIN GLARGINE 100 UNITS/ML SUB-Q SCH ×2 (10:00→22:00)
--- NOTE | 2021-04-30 10:21 | Anesthesia Consultation ---
Anesthesia Consult and Med Hx Date of service: 04/30/21 - Airway Anesthetic Teeth Evaluation: Poor (several missing teeth) ROM Head & Neck: Adequate Mental/Hyoid Distance: Adequate Mallampati Class: Class II Intubation Access Assessment: Probably Good - Pulmonary Exam CTA: Yes - Cardiac Exam Cardiac Exam: RRR - Pre-Operative Health Status ASA Pre-Surgery Classification: ASA3 Proposed Anesthetic Plan: General - Pulmonary Hx Smoking: No Hx Asthma: No COPD: No Hx Pneumonia: No - Cardiovascular System Hx Hypertension: No Hx Coronary Artery Disease: No - Central Nervous System Hx Seizures: No Hx Psychiatric Problems: No - Gastrointestinal Hx Gastroesophageal Reflux Disease: No - Endocrine Hx End Stage Renal Disease: No Hx Insulin Dependent Diabetes: Yes (uncontrolled - currently on insulin drip) Hx Thyroid Disease: No - Hematic Hx Anemia: No - Other Systems Hx Alcohol Use: No Hx Substance Use: No Hx Cancer: No Hx Obesity: Yes (BMI 37) - Additional Comments Anesthesia Medical History Comments: No hx of anesthetic complications
--- NOTE | 2021-04-30 10:22 | Anesthesia Day of Surgery ---
Anesthesia Day of Surgery - Day of Surgery Patient Examined: Yes Patient H&P Reviewed: Yes Patient is NPO: Yes
--- NOTE | 2021-04-30 12:14 | Progress Note ---
Assessment and Plan Assessment and plan: This is a 40-year-old female history of type 2 diabetes who presented to the ED with right buttock pain. Found to be in DKA and to have right gluteal cellulitis. DKA protocol initiated and surgery Gen. Surgery was consulted, then patient was admitted to ICU for further management. Hospital Course to Date: 04/30/21- Patient's gap is close, plan to transition to SSI and basal insulin. Patient was febrile overnight with no improvement in leukocytosis despite IV abx, plan for possible I&D today with Gen. Surgery, will keep patient NPO for now. Patient's renal function is slowly improving, Cr. is still 2.3, nephro consulted for further recommendation. Will continue to monitor Assessment and Plan #Diabetic ketoacidosis (DKA) - A1c 15.5% - Patient reported noncompliance with insulin due to weight gain - DKA protocol stopped- Transitioned to Subq insulin - High dose SSI and Lantus added - Monitor serum electrolytes, repleted if needed - CCM on consult #Acute kidney injury #Hyponatremia #Hypokalemia - JOMAR Likely vasomotor nephropathy versus damage secondary to uncontrolled diabetes - SCr 2.3, baseline unknown - FENa 0.4%, indicative of prerenal etiology - Strict intake and output - Avoid nephrotoxic medications; Renally dose medications - Cunningham in place, 725 UOP in last 24hrs - Monitor and replace electrolytes as needed - Nephrology consult #Anion gap metabolic acidosis- Resolved -Likely secondary to diabetic ketoacidosis and lactic acidosis #Right gluteal cellulitis #Leukocytosis #Lactic Acidosis- Resolved - Lactate did not improve after IV fluid boluses - Likely secondary to DKA and current infection - Lactate as high as 2.6, down to 1.10 this am - WBCs remains elevated, 22.5 this am - Febrile overnight, TMAX 101 - 04/29 B.cultX2 pending, 04/29 Urine cult pending - Surgery on consult - Plan for possible I&D today - Continue current IV ABx- Clindamycin - Continue to F/U on B.cult - Consider ID consult if fever or/and leukocytosis persists The high probability of a clinically significant, sudden or life threatening deterioration of the [multiple] system(s) required my full and direct attention, intervention and personal management. The aggregate critical care time was [40] minutes. This time is in addition to time spent performing reported procedures but includes the following: [x] Data Review and interpretation [x] Patient assessment and monitoring of vital signs [x] Documentation [x] Medication orders and management Disposition Plan: ICU Total Time Spent with Patient (Minutes): 40 History Interval history: Patient seen and examined at the bedside. Patient is fully AAO, on 2L NC, denied of pain at this time. Stated he is feeling a lot better, voiced that she worries about her kidney she does not want to have to go on dialysis. ALEX overnight Hospitalist Physical - Constitutional Vitals: Temp Pulse Resp BP Pulse Ox 100 F H 83 29 H 101/46 91 04/30/21 06:34 04/30/21 08:46 04/30/21 08:46 04/30/21 08:46 04/30/21 08:46 General appearance: Present: no acute distress - EENT Eyes: Present: PERRL, EOM intact ENT: hearing intact, clear oral mucosa - Neck Neck: Present: normal ROM - Respiratory Respiratory effort: normal Respiratory: bilateral: diminished - Cardiovascular Rhythm: regular Heart Sounds: Present: S1 & S2 - Extremities Extremities: no ischemia, pulses intact, pulses symmetrical Peripheral Pulses: within normal limits - Abdominal General gastrointestinal: soft, non-tender, normal bowel sounds - Integumentary Integumentary: Present: warm, dry - Psychiatric Psychiatric: appropriate mood/affect, cooperative - Neurologic Neurologic: CNII-XII intact, moves all extremities - Allied Health Allied health notes reviewed: nursing Results - Labs CBC & Chem 7: 04/30/21 04:48 04/30/21 07:33 Labs: Laboratory Last Values WBC 22.5 K/mm3 (4.5-11.0) H 04/30/21 04:48 RBC 3.56 M/mm3 (3.65-5.03) L 04/30/21 04:48 Hgb 8.2 gm/dl (10.1-14.3) L 04/30/21 04:48 Hct 25.8 % (30.3-42.9) L 04/30/21 04:48 MCV 73 fl (79-97) L 04/30/21 04:48 MCH 23 pg (28-32) L 04/30/21 04:48 MCHC 32 % (30-34) 04/30/21 04:48 RDW 17.0 % (13.2-15.2) H 04/30/21 04:48 Plt Count 331 K/mm3 (140-440) 04/30/21 04:48 Add Manual Diff Complete 04/30/21 04:48 Total Counted 100 04/30/21 04:48 Seg Neuts % (Manual) 96.0 % (40.0-70.0) H 04/30/21 04:48 Band Neutrophils % 1.0 % 04/30/21 04:48 Lymphocytes % (Manual) 2.0 % (13.4-35.0) L 04/30/21 04:48 Monocytes % (Manual) 1.0 % (0.0-7.3) 04/30/21 04:48 Nucleated RBC % 1.0 % (0.0-0.9) H 04/30/21 04:48 Seg Neutrophils # Man 21.6 K/mm3 (1.8-7.7) H 04/30/21 04:48 Band Neutrophils # 0.2 K/mm3 04/30/21 04:48 Lymphocytes # (Manual) 0.5 K/mm3 (1.2-5.4) L 04/30/21 04:48 Abs React Lymphs (Man) 0.0 K/mm3 04/30/21 04:48 Monocytes # (Manual) 0.2 K/mm3 (0.0-0.8) 04/30/21 04:48 Eosinophils # (Manual) 0.0 K/mm3 (0.0-0.4) 04/30/21 04:48 Basophils # (Manual) 0.0 K/mm3 (0.0-0.1) 04/30/21 04:48 Metamyelocytes # 0.0 K/mm3 04/30/21 04:48 Myelocytes # 0.0 K/mm3 04/30/21 04:48 Promyelocytes # 0.0 K/mm3 04/30/21 04:48 Blast Cells # 0.0 K/mm3 04/30/21 04:48 WBC Morphology Not Reportable 04/30/21 04:48 Hypersegmented Neuts Not Reportable 04/30/21 04:48 Hyposegmented Neuts Not Reportable 04/30/21 04:48 Hypogranular Neuts Not Reportable 04/30/21 04:48 Smudge Cells Not Reportable 04/30/21 04:48 Toxic Granulation 1+ 04/30/21 04:48 Toxic Vacuolation Not Reportable 04/30/21 04:48 Dohle Bodies Few 04/30/21 04:48 Pelger-Huet Anomaly Not Reportable 04/30/21 04:48 Randa Rods Not Reportable 04/30/21 04:48 Platelet Estimate Consistent w auto 04/30/21 04:48 Clumped Platelets Not Reportable 04/30/21 04:48 Plt Clumps, EDTA Not Reportable 04/30/21 04:48 Large Platelets Not Reportable 04/30/21 04:48 Giant Platelets Not Reportable 04/30/21 04:48 Platelet Satelliting Not Reportable 04/30/21 04:48 Plt Morphology Comment Not Reportable 04/30/21 04:48 RBC Morphology Not Reportable 04/30/21 04:48 Dimorphic RBCs Not Reportable 04/30/21 04:48 Polychromasia Not Reportable 04/30/21 04:48 Hypochromasia 1+ 04/30/21 04:48 Poikilocytosis Not Reportable 04/30/21 04:48 Anisocytosis 1+ 04/30/21 04:48 Microcytosis Not Reportable 04/30/21 04:48 Macrocytosis Not Reportable 04/30/21 04:48 Spherocytes Not Reportable 04/30/21 04:48 Pappenheimer Bodies Not Reportable 04/30/21 04:48 Sickle Cells Not Reportable 04/30/21 04:48 Target Cells Not Reportable 04/30/21 04:48 Tear Drop Cells Not Reportable 04/30/21 04:48 Ovalocytes Not Reportable 04/30/21 04:48 Helmet Cells Not Reportable 04/30/21 04:48 [place] Bodies Not Reportable 04/30/21 04:48 [place] Rings Not Reportable 04/30/21 04:48 [place] Cells Not Reportable 04/30/21 04:48 Bite Cells Not Reportable 04/30/21 04:48 Crenated Cell Not Reportable 04/30/21 04:48 Elliptocytes Not Reportable 04/30/21 04:48 Acanthocytes (Spur) Not Reportable 04/30/21 04:48 Rouleaux Not Reportable 04/30/21 04:48 Hemoglobin C Crystals Not Reportable 04/30/21 04:48 Schistocytes Not Reportable 04/30/21 04:48 Malaria parasites Not Reportable 04/30/21 04:48 [place] Bodies Not Reportable 04/30/21 04:48 Hem Pathologist Commnt No 04/30/21 04:48 VBG pH 7.282 (7.320-7.420) L 04/29/21 04:48 Sodium 131 mmol/L (137-145) L 04/30/21 07:33 Potassium 3.5 mmol/L (3.6-5.0) L 04/30/21 07:33 Chloride 99.9 mmol/L (98-107) 04/30/21 07:33 Carbon Dioxide 16 mmol/L (22-30) L 04/30/21 07:33 Anion Gap 19 mmol/L 04/30/21 07:33 BUN 37 mg/dL (7-17) H 04/30/21 07:33 Creatinine 2.4 mg/dL (0.6-1.2) H 04/30/21 07:33 Estimated GFR 27 ml/min 04/30/21 07:33 BUN/Creatinine Ratio 15 % 04/30/21 07:33 Glucose 179 mg/dL (65-100) H 04/30/21 07:33 POC Glucose 130 mg/dL (70-105) H 04/30/21 11:51 Hemoglobin A1c 15.1 % (4-6) H 04/29/21 08:29 Lactic Acid 1.10 mmol/L (0.7-2.0) 04/30/21 04:48 Calcium 8.3 mg/dL (8.4-10.2) L 04/30/21 07:33 Phosphorus 3.10 mg/dL (2.5-4.5) 04/29/21 20:59 Magnesium 1.90 mg/dL (1.7-2.3) 04/29/21 20:59 Total Bilirubin 0.40 mg/dL (0.1-1.2) 04/29/21 01:54 AST 6 units/L (5-40) 04/29/21 01:54 ALT 7 units/L (7-56) 04/29/21 01:54 Alkaline Phosphatase 174 units/L (35-129) H 04/29/21 01:54 Total Protein 7.7 g/dL (6.3-8.2) 04/29/21 01:54 Albumin 3.0 g/dL (3.9-5) L 04/29/21 01:54 Albumin/Globulin Ratio 0.6 % 04/29/21 01:54 HCG, Qual Negative (Negative) 04/29/21 01:54 Urine Color Yellow (Yellow) 04/29/21 Unknown Urine Turbidity Turbid (Clear) 04/29/21 Unknown Urine pH 5.0 (5.0-7.0) 04/29/21 Unknown Ur Specific [place] 1.013 (1.003-1.030) 04/29/21 Unknown Urine Protein 100 mg/dl mg/dL (Negative) 04/29/21 Unknown Urine Glucose (UA) >=500 mg/dL (Negative) 04/29/21 Unknown Urine Ketones Tr mg/dL (Negative) 04/29/21 Unknown Urine Blood Lg (Negative) 04/29/21 Unknown Urine Nitrite Neg (Negative) 04/29/21 Unknown Urine Bilirubin Neg (Negative) 04/29/21 Unknown Urine Urobilinogen 4.0 mg/dL (<2.0) 04/29/21 Unknown Ur Leukocyte Esterase Mod (Negative) 04/29/21 Unknown Urine WBC (Auto) > 182.0 /HPF (0.0-6.0) H 04/29/21 Unknown Urine RBC (Auto) 15.0 /HPF (0.0-6.0) 04/29/21 Unknown U Epithel Cells (Auto) 11.0 /HPF (0-13.0) 04/29/21 Unknown Urine Bacteria (Auto) 4+ /HPF (Negative) 04/29/21 Unknown Urine Mucus 3+ /HPF 04/29/21 Unknown Urine Creatinine 123.4 mg/dL (0.1-20.0) H 04/29/21 Unknown Urine Sodium 25 mmol/L 04/29/21 Unknown Microbiology: Microbiology 04/29/21 19:45 Urine,Catheterized - Straight Catheter Urine Culture - Preliminary NO GROWTH AFTER 24 HOURS 04/29/21 03:43 Peripheral/Venous Blood Culture - Preliminary NO GROWTH AFTER 24 HOURS 04/29/21 03:05 Peripheral/Venous Blood Culture - Preliminary NO GROWTH AFTER 24 HOURS Cunningham/IV: Voiding Method Indwelling Catheter Active Medications - Current Medications Current Medications: Generic Name Dose Route Start Last Admin Trade Name Cliffq PRN Reason Stop Dose Admin Acetaminophen 650 mg 04/29/21 08:00 04/30/21 03:49 Acetaminophen 325 Mg Tab PO 650 mg Q6H PRN Administration Pain MILD(1-3)/Fever >100.5/GAUTAM Dextrose 0 ml 04/29/21 08:00 Dextrose 50% In Water (25gm) 50 Ml Syringe IV Q30MIN PRN Hypoglycemia Protocol Famotidine 10 mg 04/30/21 22:00 Famotidine 10 Mg Tab PO BID JOANNE Clindamycin HCl 600 mg in 50 mls @ 100 mls/hr 04/29/21 16:00 04/30/21 08:56 Cleocin 600 Mg/50 Ml IV 100 mls/hr Q8H JOANNE Administration Protocol Sodium Bicarbonate 150 meq/ 1,150 mls @ 100 mls/hr 04/30/21 12:30 Sterile Water IV DIRECT [facility] Insulin Glargine 20 units 04/30/21 10:00 Insulin Glargine 100 Units/Ml SUB-Q QDAY [facility] Insulin Human Lispro 0 unit 04/30/21 11:30 Insulin Lispro 100 Unit/Ml SUB-Q ACHS [facility] Protocol Morphine Sulfate 4 mg 04/29/21 09:00 Morphine 4 Mg/1 Ml Inj IV Q4H PRN Pain , Severe (7-10) Naloxone HCl 0.1 mg 04/29/21 09:00 Naloxone 0.4 Mg/1 Ml Inj IV Q2MIN PRN Res Rate </= 8 or 02 SAT < 92% Oxycodone/Acetaminophen 1 tab 04/29/21 09:00 04/29/21 08:37 Oxycodone /Acetaminophen 5-325mg Tab PO 1 tab Q6H PRN Administration Pain, Moderate (4-6) Sodium Chloride 10 ml 04/29/21 10:00 04/30/21 09:04 Sodium Chloride 0.9% 10 Ml Flush Syringe IV 10 ml BID JOANNE Administration Sodium Chloride 10 ml 04/29/21 09:00 Sodium Chloride 0.9% 10 Ml Flush Syringe IV PRN PRN LINE FLUSH
[2021-04-30] MEDS: INSULIN LISPRO 100 UNIT/ML SUB-Q SCH ×3 (12:28→21:05)
--- NOTE | 2021-04-30 13:36 | Progress Note ---
Assessment and Plan Septic shock Diabetic ketoacidosis Acute kidney injury Anemia Lactic acidosis Right gluteal abscess IVC filter in situ Obesity Medication and healthcare noncomplianc Hyponatremia Mild metabolic acidosis - wound care per RN / WCN under surgeons direction - prn supplemental oxygen to keep O2 sats > 90% - prn bronchodilators (NERY) with pulm hygiene per RT - avoid nephrotoxins, renally dose all medications - mobility protocols to prevent pressure ulcers - PT/OT as tolerated - Wound care per RN/WCT - continue accuchecks with glycemic control per SSI for target blood glucose < 180 mg/dL - tobacco abstinence strongly counseled at the bedside - home oxygen evaluation at discharge - GI & VTE prophylaxis - Flu & pneumovax per protocol - prn analgesia per pain score - continue other care per attending / other consultants ... re-evaluate in am & prn Subjective Date of service: 04/30/21 Interval history: Patient is seen today for: Seen and examined at bedside; 24hour events reviewed; nursing and respiratory care staff consulted; no adverse overnight events reported to me; Objective Vital Signs - 12hr 04/30/21 04/30/21 04/30/21 01:46 02:00 02:16 Temperature Pulse Rate 79 81 79 Respiratory 22 27 H 29 H Rate Blood Pressure 137/69 144/64 144/64 O2 Sat by Pulse 97 95 95 Oximetry 04/30/21 04/30/21 04/30/21 02:30 02:46 03:00 Temperature Pulse Rate 82 83 88 Respiratory 25 H 25 H 28 H Rate Blood Pressure 150/59 150/59 150/59 O2 Sat by Pulse 96 94 94 Oximetry 04/30/21 04/30/21 04/30/21 03:16 03:30 03:41 Temperature 101 F H Pulse Rate 91 H 88 Respiratory 29 H 28 H Rate Blood Pressure 155/63 130/49 O2 Sat by Pulse 94 95 Oximetry 04/30/21 04/30/21 04/30/21 03:46 04:00 04:16 Temperature Pulse Rate 90 93 H 86 Respiratory 27 H 28 H 24 Rate Blood Pressure 130/49 147/62 147/62 O2 Sat by Pulse 94 95 96 Oximetry 04/30/21 04/30/21 04/30/21 04:30 04:46 05:00 Temperature Pulse Rate 81 80 79 Respiratory 21 23 22 Rate Blood Pressure 147/62 108/46 117/48 O2 Sat by Pulse 96 96 96 Oximetry 04/30/21 04/30/21 04/30/21 05:16 05:30 05:46 Temperature Pulse Rate 78 77 77 Respiratory 20 21 20 Rate Blood Pressure 117/48 113/49 113/49 O2 Sat by Pulse 92 92 92 Oximetry 04/30/21 04/30/21 04/30/21 06:00 06:16 06:30 Temperature Pulse Rate 78 83 79 Respiratory 23 27 H 23 Rate Blood Pressure 110/51 110/51 106/49 O2 Sat by Pulse 93 94 Oximetry 04/30/21 04/30/21 04/30/21 06:34 06:46 07:00 Temperature 100 F H Pulse Rate 78 78 Respiratory 22 23 Rate Blood Pressure 106/49 114/47 O2 Sat by Pulse 94 95 Oximetry 04/30/21 04/30/21 04/30/21 07:16 07:30 07:46 Temperature Pulse Rate 78 83 82 Respiratory 19 26 H 26 H Rate Blood Pressure 114/47 110/47 110/47 O2 Sat by Pulse 94 93 94 Oximetry 04/30/21 04/30/21 04/30/21 08:00 08:16 08:30 Temperature Pulse Rate 77 76 76 Respiratory 22 18 21 Rate Blood Pressure 102/47 102/47 101/46 O2 Sat by Pulse 96 95 94 Oximetry 04/30/21 04/30/21 04/30/21 08:35 08:46 09:00 Temperature Pulse Rate 83 75 Respiratory 29 H 25 H Rate Blood Pressure 101/46 97/40 O2 Sat by Pulse 94 91 93 Oximetry 04/30/21 04/30/21 04/30/21 09:16 09:30 09:46 Temperature Pulse Rate 73 76 73 Respiratory Rate Blood Pressure 104/45 99/52 99/52 O2 Sat by Pulse 95 95 96 Oximetry 04/30/21 04/30/21 04/30/21 10:00 10:16 10:30 Temperature Pulse Rate 74 76 75 Respiratory Rate Blood Pressure 96/47 96/47 99/57 O2 Sat by Pulse 92 93 92 Oximetry 04/30/21 04/30/21 04/30/21 10:46 11:00 11:16 Temperature Pulse Rate 74 73 72 Respiratory 19 19 Rate Blood Pressure 99/57 111/46 111/46 O2 Sat by Pulse 95 95 96 Oximetry 04/30/21 04/30/21 04/30/21 11:30 11:46 12:00 Temperature Pulse Rate 74 74 80 Respiratory 16 21 19 Rate Blood Pressure 111/46 111/46 111/46 O2 Sat by Pulse 95 96 92 Oximetry 04/30/21 12:16 Temperature Pulse Rate 81 Respiratory 25 H Rate Blood Pressure 99/46 O2 Sat by Pulse Oximetry CBC and BMP: 05/01/21 05:55 05/01/21 05:55 Abnormal lab findings: Abnormal Labs 04/29/21 04/29/21 04/29/21 01:54 01:54 03:05 WBC 22.1 H RBC Hgb 8.8 L Hct 28.5 L MCV 74 L MCH 23 L RDW 16.5 H Seg Neuts % (Manual) 71.0 H Lymphocytes % (Manual) 5.0 L Monocytes % (Manual) 10.0 H Nucleated RBC % Seg Neutrophils # Man 15.7 H Lymphocytes # (Manual) 1.1 L Monocytes # (Manual) 2.2 H VBG pH Sodium 124 L Potassium Chloride 88.7 L Carbon Dioxide 19 L BUN 33 H Creatinine 2.3 H Glucose 563 H* POC Glucose Hemoglobin A1c Lactic Acid 2.40 H* Calcium Alkaline Phosphatase 174 H Albumin 3.0 L Urine WBC (Auto) Urine Creatinine 04/29/21 04/29/21 04/29/21 04:48 04:48 04:48 WBC RBC Hgb Hct MCV MCH RDW Seg Neuts % (Manual) Lymphocytes % (Manual) Monocytes % (Manual) Nucleated RBC % Seg Neutrophils # Man Lymphocytes # (Manual) Monocytes # (Manual) VBG pH 7.282 L Sodium 124 L Potassium Chloride 89.3 L Carbon Dioxide 18 L BUN 35 H Creatinine 2.4 H Glucose 570 H* POC Glucose Hemoglobin A1c Lactic Acid 2.20 H* Calcium 8.1 L Alkaline Phosphatase Albumin Urine WBC (Auto) Urine Creatinine 04/29/21 04/29/21 04/29/21 07:04 08:23 08:29 WBC RBC Hgb Hct MCV MCH RDW Seg Neuts % (Manual) Lymphocytes % (Manual) Monocytes % (Manual) Nucleated RBC % Seg Neutrophils # Man Lymphocytes # (Manual) Monocytes # (Manual) VBG pH Sodium Potassium Chloride Carbon Dioxide BUN Creatinine Glucose POC Glucose 571 H 426 H Hemoglobin A1c Lactic Acid 2.60 H* Calcium Alkaline Phosphatase Albumin Urine WBC (Auto) Urine Creatinine 04/29/21 04/29/21 04/29/21 08:29 08:29 11:22 WBC RBC Hgb Hct MCV MCH RDW Seg Neuts % (Manual) Lymphocytes % (Manual) Monocytes % (Manual) Nucleated RBC % Seg Neutrophils # Man Lymphocytes # (Manual) Monocytes # (Manual) VBG pH Sodium 126 L 125 L Potassium Chloride 91.9 L 94.0 L Carbon Dioxide 15 L 12 L BUN 35 H 36 H Creatinine 2.3 H 2.3 H Glucose 429 H 368 H POC Glucose Hemoglobin A1c 15.1 H Lactic Acid Calcium 8.1 L 8.2 L Alkaline Phosphatase Albumin Urine WBC (Auto) Urine Creatinine 04/29/21 04/29/21 04/29/21 12:00 13:41 13:43 WBC RBC Hgb Hct MCV MCH RDW Seg Neuts % (Manual) Lymphocytes % (Manual) Monocytes % (Manual) Nucleated RBC % Seg Neutrophils # Man Lymphocytes # (Manual) Monocytes # (Manual) VBG pH Sodium 126 L Potassium Chloride 93.3 L Carbon Dioxide 14 L BUN 38 H Creatinine 2.4 H Glucose 399 H POC Glucose 395 H 367 H Hemoglobin A1c Lactic Acid Calcium 8.2 L Alkaline Phosphatase Albumin Urine WBC (Auto) Urine Creatinine 04/29/21 04/29/21 04/29/21 15:11 15:28 16:24 WBC RBC Hgb Hct MCV MCH RDW Seg Neuts % (Manual) Lymphocytes % (Manual) Monocytes % (Manual) Nucleated RBC % Seg Neutrophils # Man Lymphocytes # (Manual) Monocytes # (Manual) VBG pH Sodium 124 L Potassium Chloride 93.2 L Carbon Dioxide 16 L BUN 37 H Creatinine 2.6 H Glucose 379 H POC Glucose 356 H 350 H Hemoglobin A1c Lactic Acid Calcium 8.1 L Alkaline Phosphatase Albumin Urine WBC (Auto) Urine Creatinine 04/29/21 04/29/21 04/29/21 17:00 17:23 18:03 WBC RBC Hgb Hct MCV MCH RDW Seg Neuts % (Manual) Lymphocytes % (Manual) Monocytes % (Manual) Nucleated RBC % Seg Neutrophils # Man Lymphocytes # (Manual) Monocytes # (Manual) VBG pH Sodium 127 L Potassium Chloride 95.4 L Carbon Dioxide 16 L BUN 38 H Creatinine 2.8 H Glucose 348 H POC Glucose 332 H 296 H Hemoglobin A1c Lactic Acid Calcium 8.2 L Alkaline Phosphatase Albumin Urine WBC (Auto) Urine Creatinine 04/29/21 04/29/21 04/29/21 19:09 20:02 20:59 WBC RBC Hgb Hct MCV MCH RDW Seg Neuts % (Manual) Lymphocytes % (Manual) Monocytes % (Manual) Nucleated RBC % Seg Neutrophils # Man Lymphocytes # (Manual) Monocytes # (Manual) VBG pH Sodium 129 L Potassium Chloride 97.0 L Carbon Dioxide 15 L BUN 38 H Creatinine 3.0 H Glucose 232 H POC Glucose 268 H 241 H Hemoglobin A1c Lactic Acid Calcium Alkaline Phosphatase Albumin Urine WBC (Auto) Urine Creatinine 04/29/21 04/29/21 04/29/21 21:05 22:03 23:04 WBC RBC Hgb Hct MCV MCH RDW Seg Neuts % (Manual) Lymphocytes % (Manual) Monocytes % (Manual) Nucleated RBC % Seg Neutrophils # Man Lymphocytes # (Manual) Monocytes # (Manual) VBG pH Sodium Potassium Chloride Carbon Dioxide BUN Creatinine Glucose POC Glucose 207 H 196 H 163 H Hemoglobin A1c Lactic Acid Calcium Alkaline Phosphatase Albumin Urine WBC (Auto) Urine Creatinine 04/29/21 04/29/21 04/29/21 Unknown Unknown 23:59 WBC RBC Hgb Hct MCV MCH RDW Seg Neuts % (Manual) Lymphocytes % (Manual) Monocytes % (Manual) Nucleated RBC % Seg Neutrophils # Man Lymphocytes # (Manual) Monocytes # (Manual) VBG pH Sodium Potassium Chloride Carbon Dioxide BUN Creatinine Glucose POC Glucose 194 H Hemoglobin A1c Lactic Acid Calcium Alkaline Phosphatase Albumin Urine WBC (Auto) > 182.0 H Urine Creatinine 123.4 H 04/30/21 04/30/21 04/30/21 00:47 01:03 01:59 WBC RBC Hgb Hct MCV MCH RDW Seg Neuts % (Manual) Lymphocytes % (Manual) Monocytes % (Manual) Nucleated RBC % Seg Neutrophils # Man Lymphocytes # (Manual) Monocytes # (Manual) VBG pH Sodium 131 L Potassium Chloride Carbon Dioxide 17 L BUN 39 H Creatinine 2.8 H Glucose 206 H POC Glucose 191 H 168 H Hemoglobin A1c Lactic Acid Calcium Alkaline Phosphatase Albumin Urine WBC (Auto) Urine Creatinine 04/30/21 04/30/21 04/30/21 03:04 03:54 03:58 WBC RBC Hgb Hct MCV MCH RDW Seg Neuts % (Manual) Lymphocytes % (Manual) Monocytes % (Manual) Nucleated RBC % Seg Neutrophils # Man Lymphocytes # (Manual) Monocytes # (Manual) VBG pH Sodium Potassium Chloride Carbon Dioxide BUN Creatinine Glucose POC Glucose 168 H 183 H 157 H Hemoglobin A1c Lactic Acid Calcium Alkaline Phosphatase Albumin Urine WBC (Auto) Urine Creatinine 04/30/21 04/30/21 04/30/21 04:48 04:48 05:06 WBC 22.5 H RBC 3.56 L Hgb 8.2 L Hct 25.8 L MCV 73 L MCH 23 L RDW 17.0 H Seg Neuts % (Manual) 96.0 H Lymphocytes % (Manual) 2.0 L Monocytes % (Manual) Nucleated RBC % 1.0 H Seg Neutrophils # Man 21.6 H Lymphocytes # (Manual) 0.5 L Monocytes # (Manual) VBG pH Sodium 131 L Potassium Chloride Carbon Dioxide 17 L BUN 38 H Creatinine 2.3 H Glucose 207 H POC Glucose 186 H Hemoglobin A1c Lactic Acid Calcium 8.3 L Alkaline Phosphatase Albumin Urine WBC (Auto) Urine Creatinine 04/30/21 04/30/21 04/30/21 06:00 06:49 06:50 WBC RBC Hgb Hct MCV MCH RDW Seg Neuts % (Manual) Lymphocytes % (Manual) Monocytes % (Manual) Nucleated RBC % Seg Neutrophils # Man Lymphocytes # (Manual) Monocytes # (Manual) VBG pH Sodium Potassium Chloride Carbon Dioxide BUN Creatinine Glucose POC Glucose 170 H 181 H 167 H Hemoglobin A1c Lactic Acid Calcium Alkaline Phosphatase Albumin Urine WBC (Auto) Urine Creatinine 04/30/21 04/30/21 04/30/21 07:33 08:39 10:27 WBC RBC Hgb Hct MCV MCH RDW Seg Neuts % (Manual) Lymphocytes % (Manual) Monocytes % (Manual) Nucleated RBC % Seg Neutrophils # Man Lymphocytes # (Manual) Monocytes # (Manual) VBG pH Sodium 131 L Potassium 3.5 L Chloride Carbon Dioxide 16 L BUN 37 H Creatinine 2.4 H Glucose 179 H POC Glucose 147 H 127 H Hemoglobin A1c Lactic Acid Calcium 8.3 L Alkaline Phosphatase Albumin Urine WBC (Auto) Urine Creatinine 04/30/21 11:51 WBC RBC Hgb Hct MCV MCH RDW Seg Neuts % (Manual) Lymphocytes % (Manual) Monocytes % (Manual) Nucleated RBC % Seg Neutrophils # Man Lymphocytes # (Manual) Monocytes # (Manual) VBG pH Sodium Potassium Chloride Carbon Dioxide BUN Creatinine Glucose POC Glucose 130 H Hemoglobin A1c Lactic Acid Calcium Alkaline Phosphatase Albumin Urine WBC (Auto) Urine Creatinine
[2021-04-30] MEDS ORDERED: SUCCINYLCHOLINE CHLORIDE 200 MG/10 ML INJ MDV ONE (15:46)
[2021-04-30] MEDS ORDERED: ONDANSETRON 4 MG/2 ML INJ ONE (15:46)
[2021-04-30] MEDS ORDERED: LIDOCAINE PF 100 MG/5 ML (CARDIAC SYRINGE) IV ONE (15:46)
[2021-04-30] MEDS ORDERED: fentaNYL 100 MCG/2 ML INJ ONE (15:47)
[2021-04-30] MEDS ORDERED: propofoL 200 MG/20 ML VIAL IV ONE (15:47)
--- NOTE | 2021-04-30 15:57 | Event Note ---
Date: 04/30/21 Pt chart reviewed. Febrile to 101. c/o buttock pain which has not improved. WBC remains elevated at 22. Patient's Sodium and blood glucose readings much improved. Discussed OR exploration and drainage of gluteal abscess with patient. She is agreeable. Consent obtained. Will proceed to OR today. Pt states brother is aware.
[2021-04-30] MEDS ORDERED: ePHEDrine SULFATE 50 MG/1 ML INJ ONE (16:23)
--- NOTE | 2021-04-30 16:27 | Consultation ---
History of Present Illness - Reason for Consult Consult date: 04/30/21 acute renal failure, metabolic acidosis - History of Present Illness The patient is a 40 YO female with a history significant for Morbid Obesity, uncontrolled type 2 diabetes and Medical non-compliance who presented to [facility] ED 03/28 with c/o right buttock pain. She first noticed a bump on the right buttock which increased in size and she was able to express pus from it. She also reports increased fatigue, nausea, vomiting, weakness and a fever to 101 at home. She reports being noncompliant with insulin. On presentation blood pressure was 90/86. Labs were notable for WBC 22.1, Sodium 124, creatinine 2.4, lactate 2.2, glucose of 570, Creat 2.[address] abdomen pelvis showed moderate soft tissue edema and induration of the right buttock without abscess. Patient was admitted to ICU and received Insulin drip. She is on IV Abx. Nephrology was consulted for evaluation and treatment of JOMAR. Past History Past Medical History: diabetes Social history: no significant social history Family history: no significant family history Medications and Allergies Allergies Allergy/AdvReac Type Severity Reaction Status Date / Time No Known Allergies Allergy Verified 04/29/21 05:23 Home Medications Medication Instructions Recorded Confirmed Last Taken Type Efinaconazole [Jublia] 1 applic TP QDAY #4 [email or web address] 03/12/20 Unknown Rx Active Meds: Active Medications Acetaminophen (Acetaminophen 325 Mg Tab) 650 mg PO Q6H PRN PRN Reason: Pain MILD(1-3)/Fever >100.5/GAUTAM Last Admin: 04/30/21 03:49 Dose: 650 mg Documented by: Dextrose (Dextrose 50% In Water (25gm) 50 Ml Syringe) 0 ml IV Q30MIN PRN; Protocol PRN Reason: Hypoglycemia Famotidine (Famotidine 10 Mg Tab) 10 mg PO BID JOANNE Hydromorphone HCl (Hydromorphone 1 Mg/1 Ml Inj) 0.5 mg IV Q10MIN PRN PRN Reason: Pain , Severe (7-10) Stop: 04/30/21 23:00 Clindamycin HCl (Cleocin 600 Mg/50 Ml) 600 mg in 50 mls @ 100 mls/hr IV Q8H JOANNE; Protocol Last Infusion: 04/30/21 12:27 Dose: Infused Documented by: Sodium Bicarbonate 150 meq/ (Sterile Water) 1,150 mls @ 100 mls/hr IV DIRECT JOANNE Insulin Glargine (Insulin Glargine 100 Units/Ml) 20 units SUB-Q QHS [facility] Insulin Human Lispro (Insulin Lispro 100 Unit/Ml) 0 unit SUB-Q ACHS [facility]; Protocol Last Admin: 04/30/21 12:28 Dose: Not Given Documented by: Morphine Sulfate (Morphine 4 Mg/1 Ml Inj) 4 mg IV Q4H PRN PRN Reason: Pain , Severe (7-10) Naloxone HCl (Naloxone 0.4 Mg/1 Ml Inj) 0.1 mg IV Q2MIN PRN PRN Reason: Res Rate </= 8 or 02 SAT < 92% Oxycodone/Acetaminophen (Oxycodone /Acetaminophen 5-325mg Tab) 1 tab PO Q6H PRN PRN Reason: Pain, Moderate (4-6) Last Admin: 04/29/21 08:37 Dose: 1 tab Documented by: Sodium Chloride (Sodium Chloride 0.9% 10 Ml Flush Syringe) 10 ml IV BID [facility] Last Admin: 04/30/21 09:04 Dose: 10 ml Documented by: Sodium Chloride (Sodium Chloride 0.9% 10 Ml Flush Syringe) 10 ml IV PRN PRN PRN Reason: LINE FLUSH Review of Systems Constitutional: fever, anorexia, fatigue, weakness, malaise Breasts: deferred Cardiovascular: no chest pain, no orthopnea, no edema, no syncope, no lightheadedness, no shortness of breath Respiratory: no cough, no shortness of breath, no dyspnea on exertion Gastrointestinal: nausea, vomiting, no abdominal pain, no diarrhea, no melena Genitourinary Female: no dysuria, no hematuria Rectal: no bleeding Musculoskeletal: no muscle cramps Neurological: no convulsions, no aphasia, no change in speech, no change in mentation, no confusion Exam - Vital Signs Vital signs: Vital Signs Temp Pulse Resp BP Pulse Ox 99.7 F H 76 18 90/46 98 04/28/21 23:42 04/28/21 23:42 04/28/21 23:42 04/28/21 23:42 04/28/21 23:42 Results - Lab Results 04/30/21 04:48 04/30/21 07:33 Most recent lab results Calcium 8.3 mg/dL (8.4-10.2) L 04/30/21 07:33 Phosphorus 3.10 mg/dL (2.5-4.5) 04/29/21 20:59 Magnesium 1.90 mg/dL (1.7-2.3) 04/29/21 20:59 Urine Creatinine 123.4 mg/dL (0.1-20.0) H 04/29/21 Unknown Urine Sodium 25 mmol/L 04/29/21 Unknown Assessment and Plan 1. Acute kidney injury: Vasomotor JOMAR in the setting of DKA. Low FeNa. CT negative for any hydro. Creatinine leveled off. Baseline renal function is unknown. Started on IV fluids Monitor renal function. Avoid nephrotoxic agents. Meds dosage based on GFR. 2. FEN: Metabolic acidosis, Sod bicarb drip, monitor. Replete K. Monitor lytes and volume status. 3. DKA: 2/2 medical non-compliance. S/p Insulin drip. Monitor. 4. R buttock abscess/cellulitis: Abx. Followed by General Surgery. 5. Anemia, POA: Trend. Subjective: Patient was seen and examined at the bedside. Examination: General appearance: well-developed, appears stated age, obese, no distress, dry mucus membrane HEENT: atraumatic Neck: trachea midline Respiratory: ctab Heart: S1S2, regular, no murmur Abdomen: soft, bowel sounds heard, NT Integumentary: no rash on the inspected area Neurologic: AO, able to move extremities Ext: no edema
[2021-04-30] MEDS ORDERED: SODIUM HYPOCHLORITE, DAKIN'S 1/2 STRENGTH (0.25%) 473 ML TOPICAL SOLN ONE (16:38)
--- NOTE | 2021-04-30 17:01 | Post Operative Note ---
Pre-op diagnosis: right gluteal abscess Post-op diagnosis: other (necrotizing infection right buttock) Findings: 18 cm abscess cavity extending from right buttock to perineum. Wound measures 10cm x 1 cm x 7cm Procedure: excisional debridement of necrotic skin and subcutaneous tissue of right buttock Anesthesia: LIATA Surgeon: SHLOMO MORGAN Estimated blood loss: minimal Pathology: list (wound cultures) Specimen disposition: to lab Condition: stable Disposition: PACU
--- NOTE | 2021-04-30 17:25 | Operative Report ---
Operative Report Operative Report: Date: 04/30/21 16:59 Initialization Date: 04/30/21 16:59 Pre-op diagnosis: right gluteal abscess Post-op diagnosis: other (necrotizing infection right buttock) Findings: 18 cm abscess cavity extending from right buttock to perineum. Wound measures 10cm x 1 cm x 7cm Procedure: excisional debridement of necrotic skin and subcutaneous tissue of right buttock Anesthesia: GORAN Surgeon: SHLOMO MORGAN Estimated blood loss: minimal Pathology: list (wound cultures) Specimen disposition: to lab Condition: stable Disposition: PACU HPI and indication: Patient is a 40-year-old female with a history of poorly controlled diabetes who presented to the emergency room with complaints of buttock pain. She was found to have right gluteal cellulitis and a CT scan was performed which did not show a drainable abscess or subcutaneous air. She was admitted to the hospital and treated for DKA. She was started on an insulin drip and monitored in the ICU, on antibiotics. The patient's condition did not improve and therefore it was recommended that she undergo operative exploration of the area and drainage of an abscess. All risks, benefits, alternatives to surgery were discussed and questions answered. Consent obtained. Procedure in detail: Patient was identified in the preoperative area, taken back to the operating room. Anesthesia was induced on the stretcher and after the en dotracheal tube was secured the patient was transferred to the operating room table in prone position. She was placed in jackknife position and the buttocks were taped apart. The gluteal and perirectal area was prepped and draped in usual sterile fashion and timeout performed. An area of induration and discoloration of the skin of the right buttock was identified on exam. Using an 11 blade the area was incised and there was immediate drainage of purulent fluid. The incision was extended in order to unroofed the abscess cavity. It was immediately visible that there was necrotic subcutaneous tissue present. The wound was probed with a gloved finger and all loculations were broken up. The abscess cavity extended from the right buttock to the perineum. The rectum is not involved. An excisional debridement of necrotic skin and subcutaneous tissue was performed using forceps and scissors. Once all necrotic tissue was evacuated the wound was checked for hemostasis which was carefully ensured. The wound was then irrigated with saline. The wound was packed with 1 piece of Dakin's moistened Kerlix. This was covered with 4 x 4 fluff gauze and ABD pads. It was secured with tape. The abscess cavity measured 18 cm. The wound measured 18 cm x 1 cm x 7 cm. At the end of the case all sponge, instrument, sharp counts were correct x2. The patient was transferred to the stretcher in supine position, extubated, taken to PACU in stable condition.
[2021-04-30] MEDS: HYDROmorphone 1 MG/1 ML INJ IV PRN ×3 (17:31→18:24)
[2021-04-30] MEDS ORDERED: INSULIN LISPRO 100 UNIT/ML SUB-Q ONE (18:00)
[2021-04-30] MEDS ORDERED: POTASSIUM CHLORIDE ER 20 MEQ TAB PO ONE (18:00)
--- NOTE | 2021-04-30 18:13 | Post Anesthesia Evaluation ---
- Post Anesthesia Evaluation Patient Participated: Yes Airway Patent: Yes Stable Respiratory Function: Yes Nausea/Vomiting: No Temp > 96.8F: Yes Pain Manageable: Yes Adequeate Hydration: Yes Anesthesia Complications: No
[2021-04-30] MEDS: SODIUM BICARBONATE 150 MEQ in WATER FOR INJECTION (PF) 1,000 ML IV SCH (18:23)
[2021-04-30] MEDS: FAMOTIDINE 10 MG TAB PO SCH (21:22)
--- NOTE | 2021-04-30 21:33 | Consultation ---
History of Present Illness Consult date: 04/30/21 Requesting physician: RONEL DUBON Reason for consult: other (DKA; Sepsis) History of present illness: PCCM CONSULT NOTE (Full dictation # [id number]) Please see dictated notes for full details Past History Past Medical History: diabetes Social history: no significant social history Family history: no significant family history Medications and Allergies Allergies Allergy/AdvReac Type Severity Reaction Status Date / Time No Known Allergies Allergy Verified 04/29/21 05:23 Home Medications Medication Instructions Recorded Confirmed Last Taken Type Efinaconazole [Jublia] 1 applic TP QDAY #4 andrew.[email or web address] 03/12/20 Unknown Rx Active Meds: Active Medications Acetaminophen (Acetaminophen 325 Mg Tab) 650 mg PO Q6H PRN PRN Reason: Pain MILD(1-3)/Fever >100.5/GAUTAM Last Admin: 04/30/21 03:49 Dose: 650 mg Documented by: Dextrose (Dextrose 50% In Water (25gm) 50 Ml Syringe) 0 ml IV Q30MIN PRN; Protocol PRN Reason: Hypoglycemia Famotidine (Famotidine 10 Mg Tab) 10 mg PO BID JOANNE Last Admin: 04/30/21 21:22 Dose: 10 mg Documented by: Hydromorphone HCl (Hydromorphone 1 Mg/1 Ml Inj) 0.5 mg IV Q10MIN PRN PRN Reason: Pain , Severe (7-10) Stop: 04/30/21 23:00 Last Admin: 04/30/21 18:24 Dose: 0.5 mg Documented by: Clindamycin HCl (Cleocin 600 Mg/50 Ml) 600 mg in 50 mls @ 100 mls/hr IV Q8H JOANNE; Protocol Last Infusion: 04/30/21 18:58 Dose: Infused Documented by: Sodium Bicarbonate 150 meq/ (Sterile Water) 1,150 mls @ 100 mls/hr IV DIRECT JOANNE Last Admin: 04/30/21 18:23 Dose: 100 mls/hr Documented by: Insulin Glargine (Insulin Glargine 100 Units/Ml) 20 units SUB-Q QHS JOANNE Last Admin: 04/30/21 21:05 Dose: 20 units Documented by: Insulin Human Lispro (Insulin Lispro 100 Unit/Ml) 0 unit SUB-Q ACHS JOANNE; Protocol Last Admin: 04/30/21 21:05 Dose: 4 unit Documented by: Morphine Sulfate (Morphine 4 Mg/1 Ml Inj) 4 mg IV Q4H PRN PRN Reason: Pain , Severe (7-10) Naloxone HCl (Naloxone 0.4 Mg/1 Ml Inj) 0.1 mg IV Q2MIN PRN PRN Reason: Res Rate </= 8 or 02 SAT < 92% Oxycodone/Acetaminophen (Oxycodone /Acetaminophen 5-325mg Tab) 1 tab PO Q6H PRN PRN Reason: Pain, Moderate (4-6) Last Admin: 04/29/21 08:37 Dose: 1 tab Documented by: Sodium Chloride (Sodium Chloride 0.9% 10 Ml Flush Syringe) 10 ml IV BID JOANNE Last Admin: 04/30/21 21:22 Dose: 10 ml Documented by: Sodium Chloride (Sodium Chloride 0.9% 10 Ml Flush Syringe) 10 ml IV PRN PRN PRN Reason: LINE FLUSH Physical Examination Vital signs: Vital Signs Temp Pulse Resp BP Pulse Ox 99.7 F H 76 18 90/46 98 04/28/21 23:42 04/28/21 23:42 04/28/21 23:42 04/28/21 23:42 04/28/21 23:42 Results - Laboratory Findings CBC and BMP: 04/30/21 04:48 04/30/21 07:33 Abnormal lab findings: Abnormal Labs 04/29/21 04/29/21 04/29/21 01:54 01:54 03:05 WBC 22.1 H RBC Hgb 8.8 L Hct 28.5 L MCV 74 L MCH 23 L RDW 16.5 H Seg Neuts % (Manual) 71.0 H Lymphocytes % (Manual) 5.0 L Monocytes % (Manual) 10.0 H Nucleated RBC % Seg Neutrophils # Man 15.7 H Lymphocytes # (Manual) 1.1 L Monocytes # (Manual) 2.2 H VBG pH Sodium 124 L Potassium Chloride 88.7 L Carbon Dioxide 19 L BUN 33 H Creatinine 2.3 H Glucose 563 H* POC Glucose Hemoglobin A1c Lactic Acid 2.40 H* Calcium Alkaline Phosphatase 174 H Albumin 3.0 L Urine WBC (Auto) Urine Creatinine 04/29/21 04/29/21 04/29/21 04:48 04:48 04:48 WBC RBC Hgb Hct MCV MCH RDW Seg Neuts % (Manual) Lymphocytes % (Manual) Monocytes % (Manual) Nucleated RBC % Seg Neutrophils # Man Lymphocytes # (Manual) Monocytes # (Manual) VBG pH 7.282 L Sodium 124 L Potassium Chloride 89.3 L Carbon Dioxide 18 L BUN 35 H Creatinine 2.4 H Glucose 570 H* POC Glucose Hemoglobin A1c Lactic Acid 2.20 H* Calcium 8.1 L Alkaline Phosphatase Albumin Urine WBC (Auto) Urine Creatinine 04/29/21 04/29/21 04/29/21 07:04 08:23 08:29 WBC RBC Hgb Hct MCV MCH RDW Seg Neuts % (Manual) Lymphocytes % (Manual) Monocytes % (Manual) Nucleated RBC % Seg Neutrophils # Man Lymphocytes # (Manual) Monocytes # (Manual) VBG pH Sodium Potassium Chloride Carbon Dioxide BUN Creatinine Glucose POC Glucose 571 H 426 H Hemoglobin A1c Lactic Acid 2.60 H* Calcium Alkaline Phosphatase Albumin Urine WBC (Auto) Urine Creatinine 04/29/21 04/29/21 04/29/21 08:29 08:29 11:22 WBC RBC Hgb Hct MCV MCH RDW Seg Neuts % (Manual) Lymphocytes % (Manual) Monocytes % (Manual) Nucleated RBC % Seg Neutrophils # Man Lymphocytes # (Manual) Monocytes # (Manual) VBG pH Sodium 126 L 125 L Potassium Chloride 91.9 L 94.0 L Carbon Dioxide 15 L 12 L BUN 35 H 36 H Creatinine 2.3 H 2.3 H Glucose 429 H 368 H POC Glucose Hemoglobin A1c 15.1 H Lactic Acid Calcium 8.1 L 8.2 L Alkaline Phosphatase Albumin Urine WBC (Auto) Urine Creatinine 04/29/21 04/29/21 04/29/21 12:00 13:41 13:43 WBC RBC Hgb Hct MCV MCH RDW Seg Neuts % (Manual) Lymphocytes % (Manual) Monocytes % (Manual) Nucleated RBC % Seg Neutrophils # Man Lymphocytes # (Manual) Monocytes # (Manual) VBG pH Sodium 126 L Potassium Chloride 93.3 L Carbon Dioxide 14 L BUN 38 H Creatinine 2.4 H Glucose 399 H POC Glucose 395 H 367 H Hemoglobin A1c Lactic Acid Calcium 8.2 L Alkaline Phosphatase Albumin Urine WBC (Auto) Urine Creatinine 04/29/21 04/29/21 04/29/21 15:11 15:28 16:24 WBC RBC Hgb Hct MCV MCH RDW Seg Neuts % (Manual) Lymphocytes % (Manual) Monocytes % (Manual) Nucleated RBC % Seg Neutrophils # Man Lymphocytes # (Manual) Monocytes # (Manual) VBG pH Sodium 124 L Potassium Chloride 93.2 L Carbon Dioxide 16 L BUN 37 H Creatinine 2.6 H Glucose 379 H POC Glucose 356 H 350 H Hemoglobin A1c Lactic Acid Calcium 8.1 L Alkaline Phosphatase Albumin Urine WBC (Auto) Urine Creatinine 04/29/21 04/29/21 04/29/21 17:00 17:23 18:03 WBC RBC Hgb Hct MCV MCH RDW Seg Neuts % (Manual) Lymphocytes % (Manual) Monocytes % (Manual) Nucleated RBC % Seg Neutrophils # Man Lymphocytes # (Manual) Monocytes # (Manual) VBG pH Sodium 127 L Potassium Chloride 95.4 L Carbon Dioxide 16 L BUN 38 H Creatinine 2.8 H Glucose 348 H POC Glucose 332 H 296 H Hemoglobin A1c Lactic Acid Calcium 8.2 L Alkaline Phosphatase Albumin Urine WBC (Auto) Urine Creatinine 04/29/21 04/29/21 04/29/21 19:09 20:02 20:59 WBC RBC Hgb Hct MCV MCH RDW Seg Neuts % (Manual) Lymphocytes % (Manual) Monocytes % (Manual) Nucleated RBC % Seg Neutrophils # Man Lymphocytes # (Manual) Monocytes # (Manual) VBG pH Sodium 129 L Potassium Chloride 97.0 L Carbon Dioxide 15 L BUN 38 H Creatinine 3.0 H Glucose 232 H POC Glucose 268 H 241 H Hemoglobin A1c Lactic Acid Calcium Alkaline Phosphatase Albumin Urine WBC (Auto) Urine Creatinine 04/29/21 04/29/21 04/29/21 21:05 22:03 23:04 WBC RBC Hgb Hct MCV MCH RDW Seg Neuts % (Manual) Lymphocytes % (Manual) Monocytes % (Manual) Nucleated RBC % Seg Neutrophils # Man Lymphocytes # (Manual) Monocytes # (Manual) VBG pH Sodium Potassium Chloride Carbon Dioxide BUN Creatinine Glucose POC Glucose 207 H 196 H 163 H Hemoglobin A1c Lactic Acid Calcium Alkaline Phosphatase Albumin Urine WBC (Auto) Urine Creatinine 04/29/21 04/29/21 04/29/21 Unknown Unknown 23:59 WBC RBC Hgb Hct MCV MCH RDW Seg Neuts % (Manual) Lymphocytes % (Manual) Monocytes % (Manual) Nucleated RBC % Seg Neutrophils # Man Lymphocytes # (Manual) Monocytes # (Manual) VBG pH Sodium Potassium Chloride Carbon Dioxide BUN Creatinine Glucose POC Glucose 194 H Hemoglobin A1c Lactic Acid Calcium Alkaline Phosphatase Albumin Urine WBC (Auto) > 182.0 H Urine Creatinine 123.4 H 04/30/21 04/30/21 04/30/21 00:47 01:03 01:59 WBC RBC Hgb Hct MCV MCH RDW Seg Neuts % (Manual) Lymphocytes % (Manual) Monocytes % (Manual) Nucleated RBC % Seg Neutrophils # Man Lymphocytes # (Manual) Monocytes # (Manual) VBG pH Sodium 131 L Potassium Chloride Carbon Dioxide 17 L BUN 39 H Creatinine 2.8 H Glucose 206 H POC Glucose 191 H 168 H Hemoglobin A1c Lactic Acid Calcium Alkaline Phosphatase Albumin Urine WBC (Auto) Urine Creatinine 04/30/21 04/30/21 04/30/21 03:04 03:54 03:58 WBC RBC Hgb Hct MCV MCH RDW Seg Neuts % (Manual) Lymphocytes % (Manual) Monocytes % (Manual) Nucleated RBC % Seg Neutrophils # Man Lymphocytes # (Manual) Monocytes # (Manual) VBG pH Sodium Potassium Chloride Carbon Dioxide BUN Creatinine Glucose POC Glucose 168 H 183 H 157 H Hemoglobin A1c Lactic Acid Calcium Alkaline Phosphatase Albumin Urine WBC (Auto) Urine Creatinine 04/30/21 04/30/21 04/30/21 04:48 04:48 05:06 WBC 22.5 H RBC 3.56 L Hgb 8.2 L Hct 25.8 L MCV 73 L MCH 23 L RDW 17.0 H Seg Neuts % (Manual) 96.0 H Lymphocytes % (Manual) 2.0 L Monocytes % (Manual) Nucleated RBC % 1.0 H Seg Neutrophils # Man 21.6 H Lymphocytes # (Manual) 0.5 L Monocytes # (Manual) VBG pH Sodium 131 L Potassium Chloride Carbon Dioxide 17 L BUN 38 H Creatinine 2.3 H Glucose 207 H POC Glucose 186 H Hemoglobin A1c Lactic Acid Calcium 8.3 L Alkaline Phosphatase Albumin Urine WBC (Auto) Urine Creatinine 04/30/21 04/30/21 04/30/21 06:00 06:49 06:50 WBC RBC Hgb Hct MCV MCH RDW Seg Neuts % (Manual) Lymphocytes % (Manual) Monocytes % (Manual) Nucleated RBC % Seg Neutrophils # Man Lymphocytes # (Manual) Monocytes # (Manual) VBG pH Sodium Potassium Chloride Carbon Dioxide BUN Creatinine Glucose POC Glucose 170 H 181 H 167 H Hemoglobin A1c Lactic Acid Calcium Alkaline Phosphatase Albumin Urine WBC (Auto) Urine Creatinine 04/30/21 04/30/21 04/30/21 07:33 08:39 10:27 WBC RBC Hgb Hct MCV MCH RDW Seg Neuts % (Manual) Lymphocytes % (Manual) Monocytes % (Manual) Nucleated RBC % Seg Neutrophils # Man Lymphocytes # (Manual) Monocytes # (Manual) VBG pH Sodium 131 L Potassium 3.5 L Chloride Carbon Dioxide 16 L BUN 37 H Creatinine 2.4 H Glucose 179 H POC Glucose 147 H 127 H Hemoglobin A1c Lactic Acid Calcium 8.3 L Alkaline Phosphatase Albumin Urine WBC (Auto) Urine Creatinine 04/30/21 04/30/21 04/30/21 11:51 17:19 21:02 WBC RBC Hgb Hct MCV MCH RDW Seg Neuts % (Manual) Lymphocytes % (Manual) Monocytes % (Manual) Nucleated RBC % Seg Neutrophils # Man Lymphocytes # (Manual) Monocytes # (Manual) VBG pH Sodium Potassium Chloride Carbon Dioxide BUN Creatinine Glucose POC Glucose 130 H 242 H 226 H Hemoglobin A1c Lactic Acid Calcium Alkaline Phosphatase Albumin Urine WBC (Auto) Urine Creatinine
[2021-05-01] MEDS: CLINDAMYCIN 600 MG/50 mL 600 MG/50 ML BAG IV SCH ×3 (00:04→15:01)
[2021-05-01] MEDS: oxyCODONE /ACETAMINOPHEN 5-325MG TAB PO PRN ×3 (01:58→17:58)
--- NOTE | 2021-05-01 03:55 | XRay Report ---
CHEST 1 VIEW 05/01/2021 1:49 AM INDICATION / CLINICAL INFORMATION: hypoxemia. COMPARISON: None available. FINDINGS: SUPPORT DEVICES: None. HEART / MEDIASTINUM: No significant abnormality. LUNGS / PLEURA: Mild bibasilar atelectasis. No pneumothorax. ADDITIONAL FINDINGS: No significant additional findings. IMPRESSION: 1. Mild bibasilar atelectasis. Signer Name: Carolyn Avila MD Signed: 05/01/2021 3:51 AM Workstation Name: [id number]
--- NOTE | 2021-05-01 05:27 | Consultation ---
DATE OF CONSULTATION: 04/29/2021 PULMONARY CRITICAL CARE CONSULTATION CONSULTING PHYSICIAN: Dr. Jose F Bach. REASON FOR CONSULTATION: Diabetic ketoacidosis. CHIEF COMPLAINT AND HISTORY OF PRESENT ILLNESS: The patient is a now 40-year-old obese female with past medical history significant amongst other things for a diagnosis of diabetes who came into the Emergency Room complaining of 5 days of pain in the right gluteal region. She noticed a bump on the right buttock and that has continued to increase in size. She was able to express some pus from it. However, it continued to be expressible, pain became really bad. She has measured a fever of 101 degrees Fahrenheit at home and ultimately she came into the Emergency Room for evaluation. She is diabetic, but admits to not being compliant with her insulin. She stated that she stopped using it secondary to weight gain. In the Emergency Room, she was relatively hypotensive with a systolic blood pressure of 90 mmHg. She had a leukocytosis and essentially was diagnosed with an anion gap acidosis and diabetic ketoacidosis. We are asked to assist with management. When I had initially seen her, the patient had not been started on IV insulin drip and looked clinically improved; however, her numbers got worse. She has since been started on IV insulin therapy and admitted to the intensive care unit. Furthermore, CT imaging has shown a significant abscess collection in the right gluteal/perineal region and surgical consultation has been placed with a plan to take her to the operating room. When I stopped by to see her today, she was resting in bed, still complaining of some pain, remained on IV insulin drip, I believe was going at 4 units per hour. She denied any nausea and vomiting today, but yesterday had some nausea prior to coming to the hospital. She denied any real fevers or chills. When asked about tobacco use/abuse history, she denies. The above is as much of the history of presentation as I have. PAST MEDICAL HISTORY: Diabetes, obesity. PAST SURGICAL HISTORY: Denies. MEDICATIONS: She was on at the time I stopped by to see her according to the medication administration record included the following: She was on Tylenol 650 mg p.o. q. 6 hours p.r.n. mild pain or fevers, Pepcid 10 mg p.o. b.i.d., Dilaudid 0.5 mg IV p.r.n. for severe pain, clindamycin 600 mg IV q. 8 hours, D5W with 3 amps of sodium bicarbonate per liter was going at 100 mL per hour. She was to begin on 20 units subQ Lantus at bedtime. She was also on a sliding scale. When I saw her, she remained on IV insulin drip, although the insulin had not been given yet, morphine sulfate 4 mg IV q. 4 hours p.r.n. severe pain, Percocet 5/325 one tablet p.o. q. 6 hours p.r.n. moderate pain. ALLERGIES: No known drug allergies. DIET: Obese lady, denies acute weight loss or gain in the preceding few weeks to months. SOCIAL HISTORY: Lives in the community. Denied alcohol, tobacco or illicit drug use or abuse. FAMILY HISTORY: Otherwise, noncontributory. REVIEW OF SYSTEMS: No loss of consciousness. No new onset seizures. No new onset focal weakness. Denies gross hematochezia or melena. Denied gross hematuria or dysuria. She denied any change in her gait or difficulty moving her lower extremities except as limited by pain. She denied polydipsia, polyuria. She denied heat or cold intolerance. Complete 13-system review of system was obtained. Pertinent positives and/or negatives as in body of history above, otherwise they are noncontributory. PHYSICAL EXAMINATION: VITAL SIGNS: At presentation in the Emergency Room, she had a low-grade fever, temperature 99.7 degrees Fahrenheit, pulse of 76, respiratory rate of 18, blood pressure 90/46, O2 sats were 98%, inspired oxygen concentration at that time was not recorded. When I stopped by to see her, her O2 sats were 98%; however, this was now on 2 liters nasal cannula. GENERAL: She is a morbidly obese young female. Normocephalic, atraumatic, talking to me in full sentences, but with mildly increased respiratory effort at rest. HEENT: Anicteric. No conjunctival erythema. Oropharynx was moist. No gross jugular venous distention, no thyromegaly. She does have a large neck circumference. Grossly, there were no palpable lymph nodes in the supraclavicular or submandibular lymph node chains. LUNGS: Auscultation of both lung redding are unremarkable. She had good bilateral air movement. No wheezing. HEART: Sounds 1 and 2 are heard. There were regular rate and rhythm at the time of my evaluation without overt rubs or murmurs. ABDOMEN: Soft, full, protuberant. Bowel sounds are positive, nontender, no palpable hepatosplenomegaly. EXTREMITIES: Without overt digital clubbing or cyanosis, no pedal edema. Pedal pulses are 2+ bilaterally. She did have the abscess/boil to the right gluteal region. NEUROLOGIC: Pupils are equal, round, about 3 mm, reactive to light. Extraocular muscle movements are intact. She moves all extremities spontaneously. SKIN: Normal turgor; however, in the area of the right gluteal region there was abscess cavity that looked about 10 cm of swelling in the region, about 10 x 5 cm or thereabouts, was tender to touch. No active bleeding. Please see the Wound Care nurses' notes for full description of her skin. PSYCHIATRIC: Mood was normal. Affect was somewhat anxious. She did have intact judgment and insight. LABORATORY DATA: From my review are as follows: Admission white cell count was 22,100 with a hemoglobin of 8.8, hematocrit of 28.5, platelet count of 348, 14% band forms at presentation on the manual differential. Venous blood gas showed a pH of 7.28. Serum sodium was 128, potassium 4.2, chloride 89, bicarbonate 19, BUN 33, creatinine of 2.3 and a glucose of 563. Lactic acid level was elevated at 2.4. Liver function tests otherwise essentially within normal limits. Two sets of blood cultures, no growth to date. Urine cultures, no growth to date. A CT of the abdomen and pelvis was done at presentation. I have reviewed the report of the CT abdomen. It reports essentially moderate soft tissue edema and induration of the right buttock, but no drainable abscess or soft tissue gas at that time, then an IVC filter was noted with limbs extending into the abdominal aorta and duodenum as described above. ASSESSMENT: 1. Septic shock at presentation. 2. Diabetic ketoacidosis. 3. Acute kidney injury. 4. Anemia that is microcytic. 5. Lactic acidosis. 6. Right gluteal abscess, rule out Cindy's gangrene. 7. IVC filter in situ. 8. Obesity. 9. Medication and healthcare noncompliance. 10. Hyponatremia. 11. Mild metabolic acidosis. PLAN: She has been seen by the surgeon and will be taken to the OR for definitive intervention, which will include incision and drainage plus exploration of the wound. We will continue clindamycin for now. Infectious Disease consult has been placed. I will defer to the Infectious Disease physician for management. Nephrology consult has been placed. I will defer to the furnace mechanic helper for management of azotemia. I will get a chest x-ray in the morning in light of her hypoxemia. Volume hydration will continue in light of the acute kidney injury and her sepsis. Vasopressors will be started as necessary to keep mean arterial pressures greater than or equal to about 65 mmHg. She is appropriately on GI prophylaxis. DVT prophylaxis will be in the form of SCDs in the short term, if there is no obvious contraindication. Consideration should be made for a Vascular Surgery consult in light of the IVC filter. She is unable to really tell me the reason why she has the IVC filter in place. I will defer that decision to the attending physician. She is again on GI prophylaxis. Flu and pneumonia vaccination will be addressed per protocol. Better medication and healthcare compliance has been counseled. Continued tobacco abstinence has been counseled. Thank you very much for the consult, Dr. Diallo, Dr. Bach. We will follow along and make further recommendations as the picture progresses/becomes clearer. She is critically ill, on life-sustaining interventions including the IV insulin therapy and at high risk of from cardiopulmonary and endocrine system decompensation. At this time, we spent about 35-40 minutes of critical care time without overlap and excluding any procedural time that may be necessary. TID: [id number] RECEIPT: [id number] DUSTIN/JOSEPH/FREDO
[2021-05-01] MEDS: SODIUM BICARBONATE 150 MEQ in WATER FOR INJECTION (PF) 1,000 ML IV SCH ×2 (06:03→21:24)
[2021-05-01 07:13] LABS: Hematocrit 23.3 % (30.3-42.9); Hemoglobin 7.3 gm/dl (10.1-14.3); Mean Corpuscular HGB Conc 31 % (30-34); Mean Corpuscular Volume 71 fl (79-97); Platelet Count 273 K/mm3 (140-440); Red Cell Distribution Width 17.4 % (13.2-15.2)
[2021-05-01 07:34] LABS: Calcium 8.3 mg/dL (8.4-10.2)
[2021-05-01] MEDS: INSULIN LISPRO 100 UNIT/ML SUB-Q SCH ×4 (08:11→21:11)
--- NOTE | 2021-05-01 09:43 | Progress Note ---
Assessment and Plan 1. Acute kidney injury: Vasomotor JOMAR in the setting of DKA. Low FeNa. CT negative for any hydro. Baseline renal function is unknown. Continue IV fluids. Monitor renal function. Creatinine level improving. Avoid nephrotoxic agents. Meds dosage based on GFR. 2. FEN: Metabolic acidosis, Sod bicarb drip, monitor. Monitor lytes and volume status. 3. DKA: 2/2 medical non-compliance. S/p Insulin drip. Monitor. 4. R buttock abscess/cellulitis: Abx. S/p I&D. Followed by General Surgery. 5. Anemia, POA: Trend. Subjective: Patient was seen and examined at the bedside. Examination: General appearance: well-developed, appears stated age, obese, no distress HEENT: atraumatic Neck: trachea midline Respiratory: ctab Heart: S1S2, regular, no murmur Abdomen: soft, bowel sounds heard, NT Integumentary: no rash on the inspected area, R thigh dressing Neurologic: AO, able to move extremities Ext: no edema Subjective Date of service: 05/01/21 Objective - Vital Signs Vital signs: Vital Signs - 12hr 04/30/21 04/30/21 04/30/21 21:55 22:00 23:00 Temperature Pulse Rate 107 H 103 H Respiratory 25 H 17 12 Rate Blood Pressure 179/86 140/81 O2 Sat by Pulse 98 100 100 Oximetry 05/01/21 05/01/21 05/01/21 00:00 01:00 02:00 Temperature Pulse Rate 107 H 99 H 106 H Respiratory 24 17 16 Rate Blood Pressure 137/89 137/89 125/63 O2 Sat by Pulse 100 100 98 Oximetry 05/01/21 05/01/21 05/01/21 03:00 04:00 05:00 Temperature Pulse Rate 101 H 100 H 99 H Respiratory 17 19 26 H Rate Blood Pressure 118/66 109/73 109/73 O2 Sat by Pulse 97 100 97 Oximetry 05/01/21 05/01/21 05/01/21 05:10 05:53 05:56 Temperature 98.9 F Pulse Rate 98 H Respiratory 25 H 13 Rate Blood Pressure 93/39 O2 Sat by Pulse 98 95 Oximetry 05/01/21 05/01/21 05/01/21 06:00 06:06 06:10 Temperature Pulse Rate 96 H 97 H 96 H Respiratory 17 26 H 20 Rate Blood Pressure 97/42 108/45 108/45 O2 Sat by Pulse 95 97 92 Oximetry 05/01/21 05/01/21 05/01/21 06:16 06:20 06:26 Temperature Pulse Rate 97 H 97 H 96 H Respiratory 24 20 23 Rate Blood Pressure 108/45 108/45 108/45 O2 Sat by Pulse 91 91 91 Oximetry 05/01/21 05/01/21 05/01/21 06:30 06:36 06:40 Temperature Pulse Rate 99 H 98 H 96 H Respiratory 14 19 17 Rate Blood Pressure 108/45 108/45 108/45 O2 Sat by Pulse 94 95 Oximetry 05/01/21 05/01/21 05/01/21 06:46 06:50 06:56 Temperature Pulse Rate 96 H 97 H 95 H Respiratory 17 14 17 Rate Blood Pressure 108/45 108/45 108/45 O2 Sat by Pulse 94 94 94 Oximetry 05/01/21 05/01/21 05/01/21 07:00 07:06 07:10 Temperature Pulse Rate 94 H 96 H 96 H Respiratory 15 18 15 Rate Blood Pressure 101/45 101/45 101/45 O2 Sat by Pulse 90 94 92 Oximetry 05/01/21 05/01/21 05/01/21 07:16 07:20 07:26 Temperature Pulse Rate 97 H 96 H 96 H Respiratory 15 19 17 Rate Blood Pressure 101/45 101/45 101/45 O2 Sat by Pulse 94 95 94 Oximetry 05/01/21 05/01/21 05/01/21 07:30 07:36 07:40 Temperature Pulse Rate 99 H 98 H 94 H Respiratory 24 22 19 Rate Blood Pressure 101/45 101/45 101/45 O2 Sat by Pulse 79 L 94 97 Oximetry 05/01/21 05/01/21 05/01/21 07:46 07:50 07:56 Temperature Pulse Rate 96 H 105 H 96 H Respiratory 16 16 22 Rate Blood Pressure 101/45 101/45 101/45 O2 Sat by Pulse 94 93 95 Oximetry 05/01/21 05/01/21 05/01/21 08:00 08:06 08:10 Temperature 99.2 F Pulse Rate 94 H 94 H 97 H Respiratory 21 26 H 15 Rate Blood Pressure 101/45 126/64 126/64 O2 Sat by Pulse 95 95 93 Oximetry 1105/01/21 05/01/21 08:16 08:20 08:26 Temperature Pulse Rate 94 H 100 H 97 H Respiratory 19 22 18 Rate Blood Pressure 126/64 126/64 126/64 O2 Sat by Pulse 95 97 94 Oximetry 05/01/21 05/01/21 05/01/21 08:27 08:30 08:36 Temperature Pulse Rate 96 H 97 H Respiratory 20 20 Rate Blood Pressure 126/64 126/64 O2 Sat by Pulse 93 95 96 Oximetry 05/01/21 05/01/21 08:43 08:49 Temperature Pulse Rate 99 H Respiratory 25 H Rate Blood Pressure O2 Sat by Pulse 98 Oximetry - Lab 05/01/21 05:55 05/01/21 05:55 Most recent lab results Calcium 8.3 mg/dL (8.4-10.2) L 05/01/21 05:55 Phosphorus 4.30 mg/dL (2.5-4.5) D 05/01/21 05:55 Magnesium 1.70 mg/dL (1.7-2.3) 05/01/21 05:55 Urine Creatinine 123.4 mg/dL (0.1-20.0) H 04/29/21 Unknown Urine Sodium 25 mmol/L 04/29/21 Unknown Medications & Allergies - Medications Allergies/Adverse Reactions: Allergies No Known Allergies Allergy (Verified 04/29/21 05:23) Home Medications: Home Medications Medication Instructions Recorded Confirmed Last Taken Type Efinaconazole [Jublia] 1 applic TP QDAY #4 [email or web address] 03/12/20 Unknown Rx Active Medications: Generic Name Dose Route Start Last Admin Trade Name Augustine PRN Reason Stop Dose Admin Acetaminophen 650 mg 04/29/21 08:00 04/30/21 03:49 Acetaminophen 325 Mg Tab PO 650 mg Q6H PRN Administration Pain MILD(1-3)/Fever >100.5/GAUTAM Dextrose 0 ml 04/29/21 08:00 Dextrose 50% In Water (25gm) 50 Ml Syringe IV Q30MIN PRN Hypoglycemia Protocol Famotidine 10 mg 04/30/21 22:00 04/30/21 21:22 Famotidine 10 Mg Tab PO 10 mg BID JOANNE Administration Clindamycin HCl 600 mg in 50 mls @ 100 mls/hr 04/29/21 16:00 05/01/21 08:15 Cleocin 600 Mg/50 Ml IV 100 mls/hr Q8H JOANNE Administration Protocol Sodium Bicarbonate 150 meq/ 1,150 mls @ 100 mls/hr 04/30/21 12:30 05/01/21 07:10 Sterile Water IV 0 mls/hr DIRECT JOANNE Infusion Insulin Glargine 25 units 05/01/21 22:00 Insulin Glargine 100 Units/Ml SUB-Q QHS [facility] Insulin Human Lispro 0 unit 04/30/21 11:30 05/01/21 08:11 Insulin Lispro 100 Unit/Ml SUB-Q 4 unit ACHS [facility] Administration Protocol Morphine Sulfate 4 mg 04/29/21 09:00 Morphine 4 Mg/1 Ml Inj IV Q4H PRN Pain , Severe (7-10) Naloxone HCl 0.1 mg 04/29/21 09:00 Naloxone 0.4 Mg/1 Ml Inj IV Q2MIN PRN Res Rate </= 8 or 02 SAT < 92% Oxycodone/Acetaminophen 1 tab 04/29/21 09:00 05/01/21 08:10 Oxycodone /Acetaminophen 5-325mg Tab PO 1 tab Q6H PRN Administration Pain, Moderate (4-6) Sodium Chloride 10 ml 04/29/21 10:00 04/30/21 21:22 Sodium Chloride 0.9% 10 Ml Flush Syringe IV 10 ml BID JOANNE Administration Sodium Chloride 10 ml 04/29/21 09:00 Sodium Chloride 0.9% 10 Ml Flush Syringe IV PRN PRN LINE FLUSH
[2021-05-01] MEDS: FAMOTIDINE 10 MG TAB PO SCH ×2 (09:49→21:12)
--- NOTE | 2021-05-01 10:28 | Progress Note ---
Assessment and Plan Assessment and plan: This is a 40-year-old female history of type 2 diabetes who presented to the ED with right buttock pain. Found to be in DKA and to have right gluteal cellulitis. DKA protocol initiated and surgery Gen. Surgery was consulted, then patient was admitted to ICU for further management. Hospital Course to Date: 04/30/21- Patient's gap is close, plan to transition to SSI and basal insulin. Patient was febrile overnight with no improvement in leukocytosis despite IV abx, plan for possible I&D today with Gen. Surgery, will keep patient NPO for now. Patient's renal function is slowly improving, Cr. is still 2.3, nephro consulted for further recommendation. Will continue to monitor 05/01/21- Patient is s/p wound debridement by Surgery. Pending Surgery rec for wound dressing, wound care consulted. Urine culture growing gram neg rods, will add rocephin X3days. Continue to f/u on sensitivity. Per [facility] patient is okay to be transfer to [facility] at this time. Patient SBP dropped in the 80s which resolved with NS bolus, patient needs more frequent observation. Assessment and Plan #Acute Pain - s/p wound debridement - Continue current PRN analgesic - Earlier mobility as tolerated and if okay by Surgery #Diabetic ketoacidosis (DKA)- resolved - A1c 15.5% - Patient reported noncompliance with insulin due to weight gain - DKA protocol stopped- Transitioned to Subq insulin - Continue High dose SSI - Increased basal, lantus to 25units QHS - Monitor serum electrolytes, repleted if needed - [facility] on consult #Acute kidney injury #Hyponatremia #Hypokalemia- resolved - JOMAR Likely vasomotor nephropathy versus damage secondary to uncontrolled diabetes - SCr 2.3, baseline unknown - FENa 0.4%, indicative of prerenal etiology - Strict intake and output - Avoid nephrotoxic medications; Renally dose medications - Cunningham in place for wound healing - Monitor and replace electrolytes as needed - Nephrology consult #Anion gap metabolic acidosis- Resolved -Likely secondary to diabetic ketoacidosis and lactic acidosis #Right gluteal cellulitis #Leukocytosis #UTI #Lactic Acidosis- Resolved - Lactate did not improve after IV fluid boluses - Likely secondary to DKA and current infection - Lactate as high as 2.6, down to 1.10 - 11/9 B.cultX2 pending, 04/29 Urine cult with gram negative rods - Wbcs downtrending, 19 this am - Low grade fever, TMAX 100.1 - Surgery on consult - 04/30 s/p wound debridement by surgery - Continue current IV ABx- Clindamycin - Rocephin added X3days for UTI - Wound care consulted - Continue to F/U on B.cult data - Consider ID consult if fever or/and leukocytosis persists The high probability of a clinically significant, sudden or life threatening deterioration of the [multiple] system(s) required my full and direct attention, intervention and personal management. The aggregate critical care time was [40] minutes. This time is in addition to time spent performing reported procedures but includes the following: [x] Data Review and interpretation [x] Patient assessment and monitoring of vital signs [x] Documentation [x] Medication orders and management Disposition Plan: ICU Total Time Spent with Patient (Minutes): 40 History Interval history: Patient seen and examined at the bedside. Patient is fully AAO, on 2L NC, C/o of buttocks pain that is control with current pain management. ALEX overnight Hospitalist Physical - Constitutional Vitals: Temp Pulse Resp BP Pulse Ox 99.2 F 99 H 25 H 126/64 98 05/01/21 08:00 05/01/21 08:49 05/01/21 08:43 05/01/21 08:36 05/01/21 08:43 General appearance: Present: no acute distress Results - Labs CBC & Chem 7: 05/01/21 05:55 05/01/21 05:55 Labs: Laboratory Last Values WBC 19.0 K/mm3 (4.5-11.0) H 05/01/21 05:55 RBC 3.30 M/mm3 (3.65-5.03) L 05/01/21 05:55 Hgb 7.3 gm/dl (10.1-14.3) L 05/01/21 05:55 Hct 23.3 % (30.3-42.9) L 05/01/21 05:55 MCV 71 fl (79-97) L 05/01/21 05:55 MCH 22 pg (28-32) L 05/01/21 05:55 MCHC 31 % (30-34) 05/01/21 05:55 RDW 17.4 % (13.2-15.2) H 05/01/21 05:55 Plt Count 273 K/mm3 (140-440) 05/01/21 05:55 Add Manual Diff Complete 04/30/21 04:48 Total Counted 100 04/30/21 04:48 Seg Neuts % (Manual) 96.0 % (40.0-70.0) H 04/30/21 04:48 Band Neutrophils % 1.0 % 04/30/21 04:48 Lymphocytes % (Manual) 2.0 % (13.4-35.0) L 04/30/21 04:48 Monocytes % (Manual) 1.0 % (0.0-7.3) 04/30/21 04:48 Nucleated RBC % 1.0 % (0.0-0.9) H 04/30/21 04:48 Seg Neutrophils # Man 21.6 K/mm3 (1.8-7.7) H 04/30/21 04:48 Band Neutrophils # 0.2 K/mm3 04/30/21 04:48 Lymphocytes # (Manual) 0.5 K/mm3 (1.2-5.4) L 04/30/21 04:48 Abs React Lymphs (Man) 0.0 K/mm3 04/30/21 04:48 Monocytes # (Manual) 0.2 K/mm3 (0.0-0.8) 04/30/21 04:48 Eosinophils # (Manual) 0.0 K/mm3 (0.0-0.4) 04/30/21 04:48 Basophils # (Manual) 0.0 K/mm3 (0.0-0.1) 04/30/21 04:48 Metamyelocytes # 0.0 K/mm3 04/30/21 04:48 Myelocytes # 0.0 K/mm3 04/30/21 04:48 Promyelocytes # 0.0 K/mm3 04/30/21 04:48 Blast Cells # 0.0 K/mm3 04/30/21 04:48 WBC Morphology Not Reportable 04/30/21 04:48 Hypersegmented Neuts Not Reportable 04/30/21 04:48 Hyposegmented Neuts Not Reportable 04/30/21 04:48 Hypogranular Neuts Not Reportable 04/30/21 04:48 Smudge Cells Not Reportable 04/30/21 04:48 Toxic Granulation 1+ 04/30/21 04:48 Toxic Vacuolation Not Reportable 04/30/21 04:48 Dohle Bodies Few 04/30/21 04:48 Pelger-Huet Anomaly Not Reportable 04/30/21 04:48 Randa Rods Not Reportable 04/30/21 04:48 Platelet Estimate Consistent w auto 04/30/21 04:48 Clumped Platelets Not Reportable 04/30/21 04:48 Plt Clumps, EDTA Not Reportable 04/30/21 04:48 Large Platelets Not Reportable 04/30/21 04:48 Giant Platelets Not Reportable 04/30/21 04:48 Platelet Satelliting Not Reportable 04/30/21 04:48 Plt Morphology Comment Not Reportable 04/30/21 04:48 RBC Morphology Not Reportable 04/30/21 04:48 Dimorphic RBCs Not Reportable 04/30/21 04:48 Polychromasia Not Reportable 04/30/21 04:48 Hypochromasia 1+ 04/30/21 04:48 Poikilocytosis Not Reportable 04/30/21 04:48 Anisocytosis 1+ 04/30/21 04:48 Microcytosis Not Reportable 04/30/21 04:48 Macrocytosis Not Reportable 04/30/21 04:48 Spherocytes Not Reportable 04/30/21 04:48 Pappenheimer Bodies Not Reportable 04/30/21 04:48 Sickle Cells Not Reportable 04/30/21 04:48 Target Cells Not Reportable 04/30/21 04:48 Tear Drop Cells Not Reportable 04/30/21 04:48 Ovalocytes Not Reportable 04/30/21 04:48 Helmet Cells Not Reportable 04/30/21 04:48 Donaldson-Lordship Bodies Not Reportable 04/30/21 04:48 Blackey Rings Not Reportable 04/30/21 04:48 [place] Cells Not Reportable 04/30/21 04:48 Bite Cells Not Reportable 04/30/21 04:48 Crenated Cell Not Reportable 04/30/21 04:48 Elliptocytes Not Reportable 04/30/21 04:48 Acanthocytes (Spur) Not Reportable 04/30/21 04:48 Rouleaux Not Reportable 04/30/21 04:48 Hemoglobin C Crystals Not Reportable 04/30/21 04:48 Schistocytes Not Reportable 04/30/21 04:48 Malaria parasites Not Reportable 04/30/21 04:48 [place] Bodies Not Reportable 04/30/21 04:48 Hem Pathologist Commnt No 04/30/21 04:48 VBG pH 7.282 (7.320-7.420) L 04/29/21 04:48 Sodium 133 mmol/L (137-145) L 05/01/21 05:55 Potassium 4.0 mmol/L (3.6-5.0) 05/01/21 05:55 Chloride 97.9 mmol/L (98-107) L 05/01/21 05:55 Carbon Dioxide 17 mmol/L (22-30) L 05/01/21 05:55 Anion Gap 22 mmol/L 05/01/21 05:55 BUN 39 mg/dL (7-17) H 05/01/21 05:55 Creatinine 2.1 mg/dL (0.6-1.2) H 05/01/21 05:55 Estimated GFR 32 ml/min 05/01/21 05:55 BUN/Creatinine Ratio 19 % 05/01/21 05:55 Glucose 232 mg/dL (65-100) H 05/01/21 05:55 POC Glucose 224 mg/dL (70-105) H 05/01/21 07:40 Hemoglobin A1c 15.1 % (4-6) H 04/29/21 08:29 Lactic Acid 1.10 mmol/L (0.7-2.0) 05/01/21 05:55 Calcium 8.3 mg/dL (8.4-10.2) L 05/01/21 05:55 Phosphorus 4.30 mg/dL (2.5-4.5) D 05/01/21 05:55 Magnesium 1.70 mg/dL (1.7-2.3) 05/01/21 05:55 Total Bilirubin 0.40 mg/dL (0.1-1.2) 04/29/21 01:54 AST 6 units/L (5-40) 04/29/21 01:54 ALT 7 units/L (7-56) 04/29/21 01:54 Alkaline Phosphatase 174 units/L (35-129) H 04/29/21 01:54 Total Protein 7.7 g/dL (6.3-8.2) 04/29/21 01:54 Albumin 3.0 g/dL (3.9-5) L 04/29/21 01:54 Albumin/Globulin Ratio 0.6 % 04/29/21 01:54 HCG, Qual Negative (Negative) 04/29/21 01:54 Urine Color Yellow (Yellow) 04/29/21 Unknown Urine Turbidity Turbid (Clear) 04/29/21 Unknown Urine pH 5.0 (5.0-7.0) 04/29/21 Unknown Ur Specific [place] 1.013 (1.003-1.030) 04/29/21 Unknown Urine Protein 100 mg/dl mg/dL (Negative) 04/29/21 Unknown Urine Glucose (UA) >=500 mg/dL (Negative) 04/29/21 Unknown Urine Ketones Tr mg/dL (Negative) 04/29/21 Unknown Urine Blood Lg (Negative) 04/29/21 Unknown Urine Nitrite Neg (Negative) 04/29/21 Unknown Urine Bilirubin Neg (Negative) 04/29/21 Unknown Urine Urobilinogen 4.0 mg/dL (<2.0) 04/29/21 Unknown Ur Leukocyte Esterase Mod (Negative) 04/29/21 Unknown Urine WBC (Auto) > 182.0 /HPF (0.0-6.0) H 04/29/21 Unknown Urine RBC (Auto) 15.0 /HPF (0.0-6.0) 04/29/21 Unknown U Epithel Cells (Auto) 11.0 /HPF (0-13.0) 04/29/21 Unknown Urine Bacteria (Auto) 4+ /HPF (Negative) 04/29/21 Unknown Urine Mucus 3+ /HPF 04/29/21 Unknown Urine Creatinine 123.4 mg/dL (0.1-20.0) H 04/29/21 Unknown Urine Sodium 25 mmol/L 04/29/21 Unknown Random Vancomycin 9.1 ug/mL (0-40.0) 05/01/21 05:55 Microbiology: Microbiology 04/29/21 19:45 Urine,Catheterized - Straight Catheter Urine Culture - Preliminary Gram Negative Cornelius 04/29/21 03:43 Peripheral/Venous Blood Culture - Preliminary NO GROWTH AFTER 48 HOURS 04/29/21 03:05 Peripheral/Venous Blood Culture - Preliminary NO GROWTH AFTER 48 HOURS Cunningham/IV: Voiding Method Indwelling Catheter Active Medications - Current Medications Current Medications: Generic Name Dose Route Start Last Admin Trade Name Freq PRN Reason Stop Dose Admin Acetaminophen 650 mg 04/29/21 08:00 04/30/21 03:49 Acetaminophen 325 Mg Tab PO 650 mg Q6H PRN Administration Pain MILD(1-3)/Fever >100.5/GAUTAM Dextrose 0 ml 04/29/21 08:00 Dextrose 50% In Water (25gm) 50 Ml Syringe IV Q30MIN PRN Hypoglycemia Protocol Famotidine 10 mg 04/30/21 22:00 05/01/21 09:49 Famotidine 10 Mg Tab PO 10 mg BID JOANNE Administration Clindamycin HCl 600 mg in 50 mls @ 100 mls/hr 04/29/21 16:00 05/01/21 08:15 Cleocin 600 Mg/50 Ml IV 100 mls/hr Q8H JOANNE Administration Protocol Sodium Bicarbonate 150 meq/ 1,150 mls @ 100 mls/hr 04/30/21 12:30 05/01/21 07:10 Sterile Water IV 0 mls/hr DIRECT JOANNE Infusion Insulin Glargine 25 units 05/01/21 22:00 Insulin Glargine 100 Units/Ml SUB-Q QHS JOANNE Insulin Human Lispro 0 unit 04/30/21 11:30 05/01/21 08:11 Insulin Lispro 100 Unit/Ml SUB-Q 4 unit ACHS JOANNE Administration Protocol Morphine Sulfate 4 mg 04/29/21 09:00 Morphine 4 Mg/1 Ml Inj IV Q4H PRN Pain , Severe (7-10) Naloxone HCl 0.1 mg 04/29/21 09:00 Naloxone 0.4 Mg/1 Ml Inj IV Q2MIN PRN Res Rate </= 8 or 02 SAT < 92% Oxycodone/Acetaminophen 1 tab 04/29/21 09:00 05/01/21 08:10 Oxycodone /Acetaminophen 5-325mg Tab PO 1 tab Q6H PRN Administration Pain, Moderate (4-6) Sodium Chloride 10 ml 04/29/21 10:00 05/01/21 09:49 Sodium Chloride 0.9% 10 Ml Flush Syringe IV 10 ml BID JOANNE Administration Sodium Chloride 10 ml 04/29/21 09:00 Sodium Chloride 0.9% 10 Ml Flush Syringe IV PRN PRN LINE FLUSH Nutrition/Malnutrition Assess - Dietary Evaluation Nutrition/Malnutrition Findings: Nutrition Notes Start: 04/30/21 14: 13 Freq: Status: Active Protocol: Document 04/30/21 14:13 GB (Rec: 04/30/21 14:45 GB [email or web address]) Nutrition Notes Need for Assessment generated from: program project analyst Initial or Follow up Assessment Current Diagnosis Diabetes Other Pertinent Diagnosis DKA, right gluteal cellulitis Current Diet NPO Labs/Tests 04/30: Na 131, K 3.5, BUN 37, Creatinine 2.4, glucose 179, Ca 8.3 A1c: 15.5 Pertinent Medications D5 1000ml (170kcal), clindamycin Height 5 ft 9 in Weight 116 kg [place] Body Weight (kg) 65.90 BMI 37.8 Intake Prior to Admission Good Weight change and time frame Admit weight recorded. No reported significant weight changes upon admission Weight Status Obese Subjective/Other Information welding specialist for skin risk assessment <=18 MD note/H&P: pt prefers not to use insuline due to weight gain. Noncompliance with DM meds Skin: Boil/abcess on right buttock GI: hypoactive bowel sounds Physical assessment note: on nasal cannula, severe weakness BLE/BUE, bedfast Percent of energy/protein needs met: 0% - currently NPO Burn Absent Trauma Absent GI Symptoms None Food Allergy No Skin Integrity/Comment Boil/abscess on right gluteal Current % PO Other Minimum of two criteria No #1 Nutrition Diagnosis No nutrition diagnosis at this time Comments: PO intake of meals at 75% or greater will meet minimal EEN. Etiology boil/abscess right gluteal As Evidenced by Signs and Symptoms welding specialist for skin risk Is patient on ventilator? No Is Patient Ambulatory and/or Out of Bed No REE-([facility]-confined to bed) 2281.608 Kcal/Kg value to use for calculation 15 Approximate Energy Requirements Using 1740 kcal/Kg Calculation Used for Recommendations Kcal/kg Additional Notes Protein: 0.8-1 g/kg @ 116k-116g Fluids: 1 ml/kcal or per MD Nutrition Intervention Change Diet Order: Advance to Consistent Carbohydrate when medically feasible Nutrition Support: n/a Add Supplement/Snack (indicate name/kcal n/a /protein ) Goal #1 Diet started/advanced, consistent carbohyrdate by f/u Goal #2 PO intake of meals to be 75% or greater daily for LOS Follow-Up By: 05/02/21 Additional Comments f/u: PO intake, diet
[2021-05-01] MEDS: cefTRIAXone/NS 1 GM/50 ML 1 GM/50 ML BAG IV SCH (12:21)
--- NOTE | 2021-05-01 12:43 | Progress Note ---
Assessment and Plan Septic shock Diabetic ketoacidosis Acute kidney injury Anemia Lactic acidosis Right gluteal abscess IVC filter in situ Obesity Medication and healthcare noncomplianc Hyponatremia Mild metabolic acidosis - wound care per RN / WCN under surgeons direction - prn supplemental oxygen to keep O2 sats > 90% - prn bronchodilators (NERY) with pulm hygiene per RT - avoid nephrotoxins, renally dose all medications - mobility protocols to prevent pressure ulcers - PT/OT as tolerated - Wound care per RN/WCT - continue accuchecks with glycemic control per SSI for target blood glucose < 180 mg/dL - tobacco abstinence strongly counseled at the bedside - home oxygen evaluation at discharge - GI & VTE prophylaxis - Flu & pneumovax per protocol - prn analgesia per pain score - continue other care per attending / other consultants ... re-evaluate in am & prn .... transfer to medical floor Subjective Date of service: 05/01/21 Interval history: Patient is seen today for: Septic shock; DKA; JOMAR; Obesity; Right gluteal abscess Seen and examined at bedside; 24hour events reviewed; nursing and respiratory care staff consulted; no adverse overnight events reported to me; resting peacefully in bed; s/p I&D with exploration of gluteal abscess; no N/V/F/C; of IV insulin and no pressors Objective Vital Signs - 12hr 05/01/21 05/01/21 05/01/21 01:00 02:00 03:00 Temperature Pulse Rate 99 H 106 H 101 H Respiratory 17 16 17 Rate Blood Pressure 137/89 125/63 118/66 O2 Sat by Pulse 100 98 97 Oximetry 05/01/21 05/01/21 05/01/21 04:00 05:00 05:10 Temperature 98.9 F Pulse Rate 100 H 99 H Respiratory 19 26 H Rate Blood Pressure 109/73 109/73 O2 Sat by Pulse 100 97 Oximetry 05/01/21 05/01/21 05/01/21 05:53 05:56 06:00 Temperature Pulse Rate 98 H 96 H Respiratory 25 H 13 17 Rate Blood Pressure 93/39 97/42 O2 Sat by Pulse 98 95 95 Oximetry 05/01/21 05/01/21 05/01/21 06:06 06:10 06:16 Temperature Pulse Rate 97 H 96 H 97 H Respiratory 26 H 20 24 Rate Blood Pressure 108/45 108/45 108/45 O2 Sat by Pulse 97 92 91 Oximetry 05/01/21 05/01/21 05/01/21 06:20 06:26 06:30 Temperature Pulse Rate 97 H 96 H 99 H Respiratory 20 23 14 Rate Blood Pressure 108/45 108/45 108/45 O2 Sat by Pulse 91 91 Oximetry 05/01/21 05/01/21 05/01/21 06:36 06:40 06:46 Temperature Pulse Rate 98 H 96 H 96 H Respiratory 19 17 17 Rate Blood Pressure 108/45 108/45 108/45 O2 Sat by Pulse 94 95 94 Oximetry 05/01/21 05/01/21 05/01/21 06:50 06:56 07:00 Temperature Pulse Rate 97 H 95 H 94 H Respiratory 14 17 15 Rate Blood Pressure 108/45 108/45 101/45 O2 Sat by Pulse 94 94 90 Oximetry 05/01/21 05/01/21 05/01/21 07:06 07:10 07:16 Temperature Pulse Rate 96 H 96 H 97 H Respiratory 18 15 15 Rate Blood Pressure 101/45 101/45 101/45 O2 Sat by Pulse 94 92 94 Oximetry 05/01/21 05/01/21 05/01/21 07:20 07:26 07:30 Temperature Pulse Rate 96 H 96 H 99 H Respiratory 19 17 24 Rate Blood Pressure 101/45 101/45 101/45 O2 Sat by Pulse 95 94 79 L Oximetry 05/01/21 05/01/21 05/01/21 07:36 07:40 07:46 Temperature Pulse Rate 98 H 94 H 96 H Respiratory 22 19 16 Rate Blood Pressure 101/45 101/45 101/45 O2 Sat by Pulse 94 97 94 Oximetry 05/01/21 05/01/21 05/01/21 07:50 07:56 08:00 Temperature 99.2 F Pulse Rate 105 H 96 H 94 H Respiratory 16 22 21 Rate Blood Pressure 101/45 101/45 101/45 O2 Sat by Pulse 93 95 95 Oximetry 05/01/21 05/01/21 05/01/21 08:06 08:10 08:16 Temperature Pulse Rate 94 H 97 H 94 H Respiratory 26 H 15 19 Rate Blood Pressure 126/64 126/64 126/64 O2 Sat by Pulse 95 93 95 Oximetry 05/01/21 05/01/21 05/01/21 08:20 08:26 08:27 Temperature Pulse Rate 100 H 97 H Respiratory 22 18 Rate Blood Pressure 126/64 126/64 O2 Sat by Pulse 97 94 93 Oximetry 05/01/21 05/01/21 05/01/21 08:30 08:36 08:40 Temperature Pulse Rate 96 H 97 H 97 H Respiratory 20 20 16 Rate Blood Pressure 126/64 126/64 126/64 O2 Sat by Pulse 95 96 95 Oximetry 05/01/21 05/01/21 05/01/21 08:43 08:46 08:49 Temperature Pulse Rate 97 H 99 H Respiratory 25 H 20 Rate Blood Pressure 126/64 O2 Sat by Pulse 98 94 Oximetry 05/01/21 05/01/21 05/01/21 08:50 08:56 09:00 Temperature Pulse Rate 96 H 96 H 97 H Respiratory 13 18 17 Rate Blood Pressure 126/64 126/64 118/64 O2 Sat by Pulse 95 95 95 Oximetry 05/01/21 05/01/21 05/01/21 09:06 09:10 09:16 Temperature Pulse Rate 98 H 97 H 97 H Respiratory 17 19 18 Rate Blood Pressure 126/64 126/64 126/64 O2 Sat by Pulse 95 94 96 Oximetry 05/01/21 05/01/21 05/01/21 09:20 09:26 09:30 Temperature Pulse Rate 97 H 97 H 95 H Respiratory 18 18 12 Rate Blood Pressure 126/64 126/64 126/64 O2 Sat by Pulse 94 95 95 Oximetry 05/01/21 05/01/21 05/01/21 09:36 09:40 09:46 Temperature Pulse Rate 95 H 95 H 95 H Respiratory 19 20 15 Rate Blood Pressure 118/64 118/64 118/64 O2 Sat by Pulse 94 94 96 Oximetry 05/01/21 05/01/21 05/01/21 09:50 09:56 10:00 Temperature Pulse Rate 96 H 103 H 96 H Respiratory 18 24 24 Rate Blood Pressure 118/64 118/64 135/73 O2 Sat by Pulse 94 93 97 Oximetry 05/01/21 05/01/21 05/01/21 10:06 10:10 10:16 Temperature Pulse Rate 94 H 95 H 97 H Respiratory 21 18 18 Rate Blood Pressure 135/73 135/73 135/73 O2 Sat by Pulse 98 98 96 Oximetry 05/01/21 05/01/21 05/01/21 10:20 10:26 10:30 Temperature Pulse Rate 94 H 96 H 94 H Respiratory 25 H 24 21 Rate Blood Pressure 135/73 135/73 135/73 O2 Sat by Pulse 95 97 97 Oximetry 05/01/21 05/01/21 05/01/21 10:36 10:40 10:46 Temperature Pulse Rate 95 H 95 H 93 H Respiratory 18 19 20 Rate Blood Pressure 135/73 135/73 135/73 O2 Sat by Pulse 95 96 96 Oximetry 05/01/21 05/01/21 05/01/21 10:50 10:55 11:00 Temperature Pulse Rate 94 H 95 H 95 H Respiratory 18 16 18 Rate Blood Pressure 135/73 135/73 135/73 O2 Sat by Pulse 96 98 95 Oximetry 05/01/21 05/01/21 05/01/21 11:06 11:10 11:15 Temperature Pulse Rate 94 H 94 H 94 H Respiratory 21 18 20 Rate Blood Pressure 135/73 O2 Sat by Pulse 95 96 96 Oximetry 05/01/21 05/01/21 05/01/21 11:21 11:25 11:31 Temperature Pulse Rate 94 H 94 H 96 H Respiratory 21 17 16 Rate Blood Pressure 135/73 135/73 135/73 O2 Sat by Pulse 99 97 97 Oximetry 05/01/21 05/01/21 05/01/21 11:35 11:41 11:45 Temperature Pulse Rate 98 H 95 H 94 H Respiratory 17 18 17 Rate Blood Pressure 135/73 135/73 135/73 O2 Sat by Pulse 95 88 88 Oximetry 05/01/21 05/01/21 05/01/21 11:51 11:55 12:00 Temperature Pulse Rate 89 86 82 Respiratory 15 15 16 Rate Blood Pressure 135/73 135/73 99/50 O2 Sat by Pulse 94 93 90 Oximetry 05/01/21 12:05 Temperature Pulse Rate 82 Respiratory 20 Rate Blood Pressure 99/50 O2 Sat by Pulse 90 Oximetry Constitutional: no acute distress Eyes: non-icteric ENT: oropharynx moist Neck: supple, no lymphadenopathy, no JVD Effort: normal Ascultation: Bilateral: clear, diminished breath sounds Percussion: Bilateral: not dull Cardiovascular: regular rate and rhythm Gastrointestinal: normoactive bowel sounds, soft, non-tender, non-distended Integumentary: other (Right gluteal / perineal abscess) Extremities: no cyanosis, no edema, pulses normal, no ischemia or petechiae Neurologic: non-focal exam, pupils equal and round, CN II-XII normal, motor strength normal and Psychiatric: mood appropriate, affect normal CBC and BMP: 05/01/21 05:55 05/01/21 05:55 Abnormal lab findings: Abnormal Labs 04/29/21 04/29/21 04/29/21 01:54 01:54 03:05 WBC 22.1 H RBC Hgb 8.8 L Hct 28.5 L MCV 74 L MCH 23 L RDW 16.5 H Seg Neuts % (Manual) 71.0 H Lymphocytes % (Manual) 5.0 L Monocytes % (Manual) 10.0 H Nucleated RBC % Seg Neutrophils # Man 15.7 H Lymphocytes # (Manual) 1.1 L Monocytes # (Manual) 2.2 H VBG pH Sodium 124 L Potassium Chloride 88.7 L Carbon Dioxide 19 L BUN 33 H Creatinine 2.3 H Glucose 563 H* POC Glucose Hemoglobin A1c Lactic Acid 2.40 H* Calcium Alkaline Phosphatase 174 H Albumin 3.0 L Urine WBC (Auto) Urine Creatinine 04/29/21 04/29/21 04/29/21 04:48 04:48 04:48 WBC RBC Hgb Hct MCV MCH RDW Seg Neuts % (Manual) Lymphocytes % (Manual) Monocytes % (Manual) Nucleated RBC % Seg Neutrophils # Man Lymphocytes # (Manual) Monocytes # (Manual) VBG pH 7.282 L Sodium 124 L Potassium Chloride 89.3 L Carbon Dioxide 18 L BUN 35 H Creatinine 2.4 H Glucose 570 H* POC Glucose Hemoglobin A1c Lactic Acid 2.20 H* Calcium 8.1 L Alkaline Phosphatase Albumin Urine WBC (Auto) Urine Creatinine 04/29/21 04/29/21 04/29/21 07:04 08:23 08:29 WBC RBC Hgb Hct MCV MCH RDW Seg Neuts % (Manual) Lymphocytes % (Manual) Monocytes % (Manual) Nucleated RBC % Seg Neutrophils # Man Lymphocytes # (Manual) Monocytes # (Manual) VBG pH Sodium Potassium Chloride Carbon Dioxide BUN Creatinine Glucose POC Glucose 571 H 426 H Hemoglobin A1c Lactic Acid 2.60 H* Calcium Alkaline Phosphatase Albumin Urine WBC (Auto) Urine Creatinine 04/29/21 04/29/21 04/29/21 08:29 08:29 11:22 WBC RBC Hgb Hct MCV MCH RDW Seg Neuts % (Manual) Lymphocytes % (Manual) Monocytes % (Manual) Nucleated RBC % Seg Neutrophils # Man Lymphocytes # (Manual) Monocytes # (Manual) VBG pH Sodium 126 L 125 L Potassium Chloride 91.9 L 94.0 L Carbon Dioxide 15 L 12 L BUN 35 H 36 H Creatinine 2.3 H 2.3 H Glucose 429 H 368 H POC Glucose Hemoglobin A1c 15.1 H Lactic Acid Calcium 8.1 L 8.2 L Alkaline Phosphatase Albumin Urine WBC (Auto) Urine Creatinine 04/29/21 04/29/21 04/29/21 12:00 13:41 13:43 WBC RBC Hgb Hct MCV MCH RDW Seg Neuts % (Manual) Lymphocytes % (Manual) Monocytes % (Manual) Nucleated RBC % Seg Neutrophils # Man Lymphocytes # (Manual) Monocytes # (Manual) VBG pH Sodium 126 L Potassium Chloride 93.3 L Carbon Dioxide 14 L BUN 38 H Creatinine 2.4 H Glucose 399 H POC Glucose 395 H 367 H Hemoglobin A1c Lactic Acid Calcium 8.2 L Alkaline Phosphatase Albumin Urine WBC (Auto) Urine Creatinine 04/29/21 04/29/21 04/29/21 15:11 15:28 16:24 WBC RBC Hgb Hct MCV MCH RDW Seg Neuts % (Manual) Lymphocytes % (Manual) Monocytes % (Manual) Nucleated RBC % Seg Neutrophils # Man Lymphocytes # (Manual) Monocytes # (Manual) VBG pH Sodium 124 L Potassium Chloride 93.2 L Carbon Dioxide 16 L BUN 37 H Creatinine 2.6 H Glucose 379 H POC Glucose 356 H 350 H Hemoglobin A1c Lactic Acid Calcium 8.1 L Alkaline Phosphatase Albumin Urine WBC (Auto) Urine Creatinine 04/29/21 04/29/21 04/29/21 17:00 17:23 18:03 WBC RBC Hgb Hct MCV MCH RDW Seg Neuts % (Manual) Lymphocytes % (Manual) Monocytes % (Manual) Nucleated RBC % Seg Neutrophils # Man Lymphocytes # (Manual) Monocytes # (Manual) VBG pH Sodium 127 L Potassium Chloride 95.4 L Carbon Dioxide 16 L BUN 38 H Creatinine 2.8 H Glucose 348 H POC Glucose 332 H 296 H Hemoglobin A1c Lactic Acid Calcium 8.2 L Alkaline Phosphatase Albumin Urine WBC (Auto) Urine Creatinine 04/29/21 04/29/21 04/29/21 19:09 20:02 20:59 WBC RBC Hgb Hct MCV MCH RDW Seg Neuts % (Manual) Lymphocytes % (Manual) Monocytes % (Manual) Nucleated RBC % Seg Neutrophils # Man Lymphocytes # (Manual) Monocytes # (Manual) VBG pH Sodium 129 L Potassium Chloride 97.0 L Carbon Dioxide 15 L BUN 38 H Creatinine 3.0 H Glucose 232 H POC Glucose 268 H 241 H Hemoglobin A1c Lactic Acid Calcium Alkaline Phosphatase Albumin Urine WBC (Auto) Urine Creatinine 04/29/21 04/29/21 04/29/21 21:05 22:03 23:04 WBC RBC Hgb Hct MCV MCH RDW Seg Neuts % (Manual) Lymphocytes % (Manual) Monocytes % (Manual) Nucleated RBC % Seg Neutrophils # Man Lymphocytes # (Manual) Monocytes # (Manual) VBG pH Sodium Potassium Chloride Carbon Dioxide BUN Creatinine Glucose POC Glucose 207 H 196 H 163 H Hemoglobin A1c Lactic Acid Calcium Alkaline Phosphatase Albumin Urine WBC (Auto) Urine Creatinine 04/29/21 04/29/21 04/29/21 Unknown Unknown 23:59 WBC RBC Hgb Hct MCV MCH RDW Seg Neuts % (Manual) Lymphocytes % (Manual) Monocytes % (Manual) Nucleated RBC % Seg Neutrophils # Man Lymphocytes # (Manual) Monocytes # (Manual) VBG pH Sodium Potassium Chloride Carbon Dioxide BUN Creatinine Glucose POC Glucose 194 H Hemoglobin A1c Lactic Acid Calcium Alkaline Phosphatase Albumin Urine WBC (Auto) > 182.0 H Urine Creatinine 123.4 H 04/30/21 04/30/21 04/30/21 00:47 01:03 01:59 WBC RBC Hgb Hct MCV MCH RDW Seg Neuts % (Manual) Lymphocytes % (Manual) Monocytes % (Manual) Nucleated RBC % Seg Neutrophils # Man Lymphocytes # (Manual) Monocytes # (Manual) VBG pH Sodium 131 L Potassium Chloride Carbon Dioxide 17 L BUN 39 H Creatinine 2.8 H Glucose 206 H POC Glucose 191 H 168 H Hemoglobin A1c Lactic Acid Calcium Alkaline Phosphatase Albumin Urine WBC (Auto) Urine Creatinine 04/30/21 04/30/21 04/30/21 03:04 03:54 03:58 WBC RBC Hgb Hct MCV MCH RDW Seg Neuts % (Manual) Lymphocytes % (Manual) Monocytes % (Manual) Nucleated RBC % Seg Neutrophils # Man Lymphocytes # (Manual) Monocytes # (Manual) VBG pH Sodium Potassium Chloride Carbon Dioxide BUN Creatinine Glucose POC Glucose 168 H 183 H 157 H Hemoglobin A1c Lactic Acid Calcium Alkaline Phosphatase Albumin Urine WBC (Auto) Urine Creatinine 04/30/21 04/30/21 04/30/21 04:48 04:48 05:06 WBC 22.5 H RBC 3.56 L Hgb 8.2 L Hct 25.8 L MCV 73 L MCH 23 L RDW 17.0 H Seg Neuts % (Manual) 96.0 H Lymphocytes % (Manual) 2.0 L Monocytes % (Manual) Nucleated RBC % 1.0 H Seg Neutrophils # Man 21.6 H Lymphocytes # (Manual) 0.5 L Monocytes # (Manual) VBG pH Sodium 131 L Potassium Chloride Carbon Dioxide 17 L BUN 38 H Creatinine 2.3 H Glucose 207 H POC Glucose 186 H Hemoglobin A1c Lactic Acid Calcium 8.3 L Alkaline Phosphatase Albumin Urine WBC (Auto) Urine Creatinine 04/30/21 04/30/21 04/30/21 06:00 06:49 06:50 WBC RBC Hgb Hct MCV MCH RDW Seg Neuts % (Manual) Lymphocytes % (Manual) Monocytes % (Manual) Nucleated RBC % Seg Neutrophils # Man Lymphocytes # (Manual) Monocytes # (Manual) VBG pH Sodium Potassium Chloride Carbon Dioxide BUN Creatinine Glucose POC Glucose 170 H 181 H 167 H Hemoglobin A1c Lactic Acid Calcium Alkaline Phosphatase Albumin Urine WBC (Auto) Urine Creatinine 04/30/21 04/30/21 04/30/21 07:33 08:39 10:27 WBC RBC Hgb Hct MCV MCH RDW Seg Neuts % (Manual) Lymphocytes % (Manual) Monocytes % (Manual) Nucleated RBC % Seg Neutrophils # Man Lymphocytes # (Manual) Monocytes # (Manual) VBG pH Sodium 131 L Potassium 3.5 L Chloride Carbon Dioxide 16 L BUN 37 H Creatinine 2.4 H Glucose 179 H POC Glucose 147 H 127 H Hemoglobin A1c Lactic Acid Calcium 8.3 L Alkaline Phosphatase Albumin Urine WBC (Auto) Urine Creatinine 04/30/21 04/30/21 04/30/21 11:51 17:19 21:02 WBC RBC Hgb Hct MCV MCH RDW Seg Neuts % (Manual) Lymphocytes % (Manual) Monocytes % (Manual) Nucleated RBC % Seg Neutrophils # Man Lymphocytes # (Manual) Monocytes # (Manual) VBG pH Sodium Potassium Chloride Carbon Dioxide BUN Creatinine Glucose POC Glucose 130 H 242 H 226 H Hemoglobin A1c Lactic Acid Calcium Alkaline Phosphatase Albumin Urine WBC (Auto) Urine Creatinine 05/01/21 05/01/21 05/01/21 05:55 05:55 07:40 WBC 19.0 H RBC 3.30 L Hgb 7.3 L Hct 23.3 L MCV 71 L MCH 22 L RDW 17.4 H Seg Neuts % (Manual) Lymphocytes % (Manual) Monocytes % (Manual) Nucleated RBC % Seg Neutrophils # Man Lymphocytes # (Manual) Monocytes # (Manual) VBG pH Sodium 133 L Potassium Chloride 97.9 L Carbon Dioxide 17 L BUN 39 H Creatinine 2.1 H Glucose 232 H POC Glucose 224 H Hemoglobin A1c Lactic Acid Calcium 8.3 L Alkaline Phosphatase Albumin Urine WBC (Auto) Urine Creatinine 05/01/21 11:07 WBC RBC Hgb Hct MCV MCH RDW Seg Neuts % (Manual) Lymphocytes % (Manual) Monocytes % (Manual) Nucleated RBC % Seg Neutrophils # Man Lymphocytes # (Manual) Monocytes # (Manual) VBG pH Sodium Potassium Chloride Carbon Dioxide BUN Creatinine Glucose POC Glucose 200 H Hemoglobin A1c Lactic Acid Calcium Alkaline Phosphatase Albumin Urine WBC (Auto) Urine Creatinine Chest x-ray: image reviewed (borderline cardiomegaly) Allied health notes reviewed: nursing
[2021-05-01] MEDS ORDERED: SODIUM CHLORIDE 0.9% 1000 ML 1,000 ML IV ONE (13:30)
--- NOTE | 2021-05-01 13:38 | Progress Note ---
Assessment and Plan 40-year-old female status post excisional debridement of necrotic skin and subcutaneous tissue of right buttock, POD 1 1. right gluteal abscess, necrotizing soft tissue infection 2. uncontrolled DM - DKA, HbA1C 15.5 Plan: 1. consistent carb diet with supplements (albumin 3.0 - suspect malnutrition) 2. IVF 3. IV abx 4. await OR culture results 5. DVT ppx 6. prn pain control 7. daily packing changes - orders placed for RN to perform 8. strict glucose control 9. wound RN consult 10. case management c/s, HHC - pt unfunded 11. Pt may follow up in wound care clinic upon dc Thank you for this consultation. Please call with any questions or concerns. Subjective Date of service: 05/01/21 Narrative: Pt seen and examined. No acute complaints. States pain in the right buttock is the same but well controlled. No f/c. Objective Vital Signs - 12hr 05/01/21 05/01/21 05/01/21 02:00 03:00 04:00 Temperature Pulse Rate 106 H 101 H 100 H Respiratory 16 17 19 Rate Blood Pressure 125/63 118/66 109/73 O2 Sat by Pulse 98 97 100 Oximetry 05/01/21 05/01/21 05/01/21 05:00 05:10 05:53 Temperature 98.9 F Pulse Rate 99 H Respiratory 26 H 25 H Rate Blood Pressure 109/73 O2 Sat by Pulse 97 98 Oximetry 05/01/21 05/01/21 05/01/21 05:56 06:00 06:06 Temperature Pulse Rate 98 H 96 H 97 H Respiratory 13 17 26 H Rate Blood Pressure 93/39 97/42 108/45 O2 Sat by Pulse 95 95 97 Oximetry 05/01/21 05/01/21 05/01/21 06:10 06:16 06:20 Temperature Pulse Rate 96 H 97 H 97 H Respiratory 20 24 20 Rate Blood Pressure 108/45 108/45 108/45 O2 Sat by Pulse 92 91 91 Oximetry 05/01/21 05/01/21 05/01/21 06:26 06:30 06:36 Temperature Pulse Rate 96 H 99 H 98 H Respiratory 23 14 19 Rate Blood Pressure 108/45 108/45 108/45 O2 Sat by Pulse 91 94 Oximetry 05/01/21 05/01/21 05/01/21 06:40 06:46 06:50 Temperature Pulse Rate 96 H 96 H 97 H Respiratory 17 17 14 Rate Blood Pressure 108/45 108/45 108/45 O2 Sat by Pulse 95 94 94 Oximetry 05/01/21 05/01/21 05/01/21 06:56 07:00 07:06 Temperature Pulse Rate 95 H 94 H 96 H Respiratory 17 15 18 Rate Blood Pressure 108/45 101/45 101/45 O2 Sat by Pulse 94 90 94 Oximetry 05/01/21 05/01/21 05/01/21 07:10 07:16 07:20 Temperature Pulse Rate 96 H 97 H 96 H Respiratory 15 15 19 Rate Blood Pressure 101/45 101/45 101/45 O2 Sat by Pulse 92 94 95 Oximetry 05/01/21 05/01/21 05/01/21 07:26 07:30 07:36 Temperature Pulse Rate 96 H 99 H 98 H Respiratory 17 24 22 Rate Blood Pressure 101/45 101/45 101/45 O2 Sat by Pulse 94 79 L 94 Oximetry 05/01/21 05/01/21 05/01/21 07:40 07:46 07:50 Temperature Pulse Rate 94 H 96 H 105 H Respiratory 19 16 16 Rate Blood Pressure 101/45 101/45 101/45 O2 Sat by Pulse 97 94 93 Oximetry 05/01/21 05/01/21 05/01/21 07:56 08:00 08:06 Temperature 99.2 F Pulse Rate 96 H 94 H 94 H Respiratory 22 21 26 H Rate Blood Pressure 101/45 101/45 126/64 O2 Sat by Pulse 95 95 95 Oximetry 05/01/21 05/01/21 05/01/21 08:10 08:16 08:20 Temperature Pulse Rate 97 H 94 H 100 H Respiratory 15 19 22 Rate Blood Pressure 126/64 126/64 126/64 O2 Sat by Pulse 93 95 97 Oximetry 05/01/21 05/01/21 05/01/21 08:26 08:27 08:30 Temperature Pulse Rate 97 H 96 H Respiratory 18 20 Rate Blood Pressure 126/64 126/64 O2 Sat by Pulse 94 93 95 Oximetry 05/01/21 05/01/21 05/01/21 08:36 08:40 08:43 Temperature Pulse Rate 97 H 97 H Respiratory 20 16 25 H Rate Blood Pressure 126/64 126/64 O2 Sat by Pulse 96 95 98 Oximetry 05/01/21 05/01/21 05/01/21 08:46 08:49 08:50 Temperature Pulse Rate 97 H 99 H 96 H Respiratory 20 13 Rate Blood Pressure 126/64 126/64 O2 Sat by Pulse 94 95 Oximetry 05/01/21 05/01/21 05/01/21 08:56 09:00 09:06 Temperature Pulse Rate 96 H 97 H 98 H Respiratory 18 17 17 Rate Blood Pressure 126/64 118/64 126/64 O2 Sat by Pulse 95 95 95 Oximetry 05/01/21 05/01/21 05/01/21 09:10 09:16 09:20 Temperature Pulse Rate 97 H 97 H 97 H Respiratory 19 18 18 Rate Blood Pressure 126/64 126/64 126/64 O2 Sat by Pulse 94 96 94 Oximetry 05/01/21 05/01/21 05/01/21 09:26 09:30 09:36 Temperature Pulse Rate 97 H 95 H 95 H Respiratory 18 12 19 Rate Blood Pressure 126/64 126/64 118/64 O2 Sat by Pulse 95 95 94 Oximetry 05/01/21 05/01/21 05/01/21 09:40 09:46 09:50 Temperature Pulse Rate 95 H 95 H 96 H Respiratory 20 15 18 Rate Blood Pressure 118/64 118/64 118/64 O2 Sat by Pulse 94 96 94 Oximetry 05/01/21 05/01/21 05/01/21 09:56 10:00 10:06 Temperature Pulse Rate 103 H 96 H 94 H Respiratory 24 24 21 Rate Blood Pressure 118/64 135/73 135/73 O2 Sat by Pulse 93 97 98 Oximetry 05/01/21 05/01/21 05/01/21 10:10 10:16 10:20 Temperature Pulse Rate 95 H 97 H 94 H Respiratory 18 18 25 H Rate Blood Pressure 135/73 135/73 135/73 O2 Sat by Pulse 98 96 95 Oximetry 05/01/21 05/01/21 05/01/21 10:26 10:30 10:36 Temperature Pulse Rate 96 H 94 H 95 H Respiratory 24 21 18 Rate Blood Pressure 135/73 135/73 135/73 O2 Sat by Pulse 97 97 95 Oximetry 05/01/21 05/01/21 05/01/21 10:40 10:46 10:50 Temperature Pulse Rate 95 H 93 H 94 H Respiratory 19 20 18 Rate Blood Pressure 135/73 135/73 135/73 O2 Sat by Pulse 96 96 96 Oximetry 05/01/21 05/01/21 05/01/21 10:55 11:00 11:06 Temperature Pulse Rate 95 H 95 H 94 H Respiratory 16 18 21 Rate Blood Pressure 135/73 135/73 135/73 O2 Sat by Pulse 98 95 95 Oximetry 05/01/21 05/01/21 05/01/21 11:10 11:15 11:21 Temperature Pulse Rate 94 H 94 H 94 H Respiratory 18 20 21 Rate Blood Pressure 135/73 O2 Sat by Pulse 96 96 99 Oximetry 05/01/21 05/01/21 05/01/21 11:25 11:31 11:35 Temperature Pulse Rate 94 H 96 H 98 H Respiratory 17 16 17 Rate Blood Pressure 135/73 135/73 135/73 O2 Sat by Pulse 97 97 95 Oximetry 05/01/21 05/01/21 05/01/21 11:41 11:45 11:51 Temperature Pulse Rate 95 H 94 H 89 Respiratory 18 17 15 Rate Blood Pressure 135/73 135/73 135/73 O2 Sat by Pulse 88 88 94 Oximetry 05/01/21 05/01/21 05/01/21 11:55 12:00 12:05 Temperature 98.6 F Pulse Rate 86 82 82 Respiratory 15 21 20 Rate Blood Pressure 135/73 99/50 99/50 O2 Sat by Pulse 93 98 90 Oximetry 05/01/21 12:48 Temperature Pulse Rate 82 Respiratory Rate Blood Pressure O2 Sat by Pulse Oximetry - General physical appearance Narrative Exam: Gen.: Awake, alert, oriented x3. No apparent distress ENT: Trachea midline. No lymphadenopathy. No scleral icterus or conjunctival pallor CV: S1, S2 present Respiratory: No audible wheezes Extremities: No clubbing, cyanosis, edema Gluteal: Right gluteal dressing with seropurulent drainage. Dressing removed. 1 piece of Kerlix packing removed from wound. There is some adherent slough to the wound bed however the majority of the wound is clean with a pink wound bed. There is no odor or purulent drainage. There is minimal induration present around the wound and discoloration of the periwound skin. No additional necrotic tissue is visible. The wound was packed with 1 piece of Dakin's moistened Kerlix. This was covered with 4 x 4 fluff gauze, ABD pad, secured with mesh underwear. - Labs 05/01/21 05:55 05/01/21 05:55 Diabetes panel 05/01/21 Range/Units 05:55 Sodium 133 L (137-145) mmol/L Potassium 4.0 (3.6-5.0) mmol/L Chloride 97.9 L (98-107) mmol/L Carbon Dioxide 17 L (22-30) mmol/L BUN 39 H (7-17) mg/dL Creatinine 2.1 H (0.6-1.2) mg/dL Glucose 232 H (65-100) mg/dL Calcium 8.3 L (8.4-10.2) mg/dL Calcium panel 05/01/21 Range/Units 05:55 Calcium 8.3 L (8.4-10.2) mg/dL Phosphorus 4.30 D (2.5-4.5) mg/dL Pituitary panel 05/01/21 Range/Units 05:55 Sodium 133 L (137-145) mmol/L Potassium 4.0 (3.6-5.0) mmol/L Chloride 97.9 L (98-107) mmol/L Carbon Dioxide 17 L (22-30) mmol/L BUN 39 H (7-17) mg/dL Creatinine 2.1 H (0.6-1.2) mg/dL Glucose 232 H (65-100) mg/dL Calcium 8.3 L (8.4-10.2) mg/dL Adrenal panel 05/01/21 Range/Units 05:55 Sodium 133 L (137-145) mmol/L Potassium 4.0 (3.6-5.0) mmol/L Chloride 97.9 L (98-107) mmol/L Carbon Dioxide 17 L (22-30) mmol/L BUN 39 H (7-17) mg/dL Creatinine 2.1 H (0.6-1.2) mg/dL Glucose 232 H (65-100) mg/dL Calcium 8.3 L (8.4-10.2) mg/dL
[2021-05-01] MEDS ORDERED: VANCOMYCIN 1,750 MG in SODIUM CHLORIDE 0.9% 500 ML 500 ML IV ONE (15:00)
[2021-05-01] MEDS: INSULIN GLARGINE 100 UNITS/ML SUB-Q SCH (21:11)
[2021-05-02] MEDS: CLINDAMYCIN 600 MG/50 mL 600 MG/50 ML BAG IV SCH ×2 (00:14→09:58)
[2021-05-02] MEDS: oxyCODONE /ACETAMINOPHEN 5-325MG TAB PO PRN ×4 (00:14→20:11)
[2021-05-02 05:12] LABS: Hematocrit 22.3 % (30.3-42.9); Hemoglobin 7.3 gm/dl (10.1-14.3); Mean Corpuscular HGB Conc 33 % (30-34); Mean Corpuscular Volume 71 fl (79-97); Platelet Count 261 K/mm3 (140-440); Red Blood Count 3.14 M/mm3 (3.65-5.03); Red Cell Distribution Width 17.2 % (13.2-15.2)
[2021-05-02] MEDS: INSULIN LISPRO 100 UNIT/ML SUB-Q SCH ×4 (08:09→21:05)
[2021-05-02] MEDS: FAMOTIDINE 10 MG TAB PO SCH ×2 (09:59→21:00)
--- NOTE | 2021-05-02 10:45 | Progress Note ---
Assessment and Plan Assessment and plan: This is a 40-year-old female history of type 2 diabetes who presented to the ED with right buttock pain. Found to be in DKA and to have right gluteal cellulitis. DKA protocol initiated and surgery Gen. Surgery was consulted, then patient was admitted to ICU for further management. Hospital Course to Date: 04/30/21- Patient's gap is close, plan to transition to SSI and basal insulin. Patient was febrile overnight with no improvement in leukocytosis despite IV abx, plan for possible I&D today with Gen. Surgery, will keep patient NPO for now. Patient's renal function is slowly improving, Cr. is still 2.3, nephro consulted for further recommendation. Will continue to monitor 05/01/21- Patient is s/p wound debridement by Surgery. Pending Surgery rec for wound dressing, wound care consulted. Urine culture growing gram neg rods, will add rocephin X3days. Continue to f/u on sensitivity. Per [facility] patient is okay to be transfer to [facility] at this time. Patient SBP dropped in the 80s which resolved with NS bolus, patient needs more frequent observation. 05/02/21- Patient remains stable. Stated he is feeling much better, pain is manageable with current pain management. BP remains stable overnight s/p 1L NS bolus. Low grade fever noted and leukocytosis improving, continue current IV abx regimen. ID consulted for IV ABx management. Assessment and Plan #Acute Pain - s/p wound debridement - Continue current PRN analgesic - Earlier mobility as tolerated and if okay by Surgery #Diabetic ketoacidosis (DKA)- resolved - A1c 15.5% - Patient reported noncompliance with insulin due to weight gain - DKA protocol stopped- Transitioned to Subq insulin - Continue High dose SSI - Increased basal, lantus to 25units QHS - Monitor serum electrolytes, repleted if needed - [facility] on consult #Acute kidney injury #Hyponatremia #Hypokalemia- resolved - JOMAR Likely vasomotor nephropathy versus damage secondary to uncontrolled diabetes - SCr as high as 3, baseline unknown - Scr. downtrending, 1.6 this am - FENa 0.4%, indicative of prerenal etiology - Strict intake and output - Avoid nephrotoxic medications; Renally dose medications - Cunningham in place for wound healing - Monitor and replace electrolytes as needed - Nephrology consult #Anion gap metabolic acidosis- Resolved -Likely secondary to diabetic ketoacidosis and lactic acidosis #Right gluteal cellulitis #Leukocytosis #UTI #Lactic Acidosis- Resolved - Lactate did not improve after IV fluid boluses - Likely secondary to DKA and current infection - Lactate as high as 2.6, down to 1.10 - 04/29 B.cultX2 pending, 04/29 Urine cult with gram negative rods - Wbcs downtrending, 19 this am - Low grade fever, TMAX 100.1 - Surgery on consult - 04/30 s/p wound debridement by surgery - Continue current IV ABx for now - Rocephin added X3days for UTI - ID consulted for IV management - Wound care consulted - Continue to F/U on B.cult data - Consider ID consult if fever or/and leukocytosis persists The high probability of a clinically significant, sudden or life threatening deterioration of the [multiple] system(s) required my full and direct attention, intervention and personal management. The aggregate critical care time was [40] minutes. This time is in addition to time spent performing reported procedures but includes the following: [x] Data Review and interpretation [x] Patient assessment and monitoring of vital signs [x] Documentation [x] Medication orders and management Disposition Plan: ICU Total Time Spent with Patient (Minutes): 40 History Interval history: Patient seen and examined at the bedside. Patient is fully AAO, on 2L NC, C/o of buttocks pain that is control with current pain management. ALEX overnight Hospitalist Physical - Constitutional Vitals: Temp Pulse Resp BP Pulse Ox 98.9 F 78 22 143/79 93 05/02/21 04:00 05/02/21 09:30 05/02/21 09:30 05/02/21 09:30 05/02/21 09:30 General appearance: Present: no acute distress - EENT Eyes: Present: PERRL, EOM intact ENT: hearing intact, clear oral mucosa - Neck Neck: Present: normal ROM - Respiratory Respiratory effort: normal Respiratory: bilateral: diminished - Cardiovascular Rhythm: regular Heart Sounds: Present: S1 & S2 - Extremities Extremities: no ischemia, pulses intact, pulses symmetrical Peripheral Pulses: within normal limits - Abdominal General gastrointestinal: soft, non-tender, normal bowel sounds - Integumentary Integumentary: Present: warm, dry - Psychiatric Psychiatric: appropriate mood/affect, cooperative - Neurologic Neurologic: CNII-XII intact, moves all extremities - Allied Health Allied health notes reviewed: nursing Results - Labs CBC & Chem 7: 05/02/21 04:33 05/02/21 04:33 Labs: Laboratory Last Values WBC 13.3 K/mm3 (4.5-11.0) H 05/02/21 04:33 RBC 3.14 M/mm3 (3.65-5.03) L 05/02/21 04:33 Hgb 7.3 gm/dl (10.1-14.3) L 05/02/21 04:33 Hct 22.3 % (30.3-42.9) L 05/02/21 04:33 MCV 71 fl (79-97) L 05/02/21 04:33 MCH 23 pg (28-32) L 05/02/21 04:33 MCHC 33 % (30-34) 05/02/21 04:33 RDW 17.2 % (13.2-15.2) H 05/02/21 04:33 Plt Count 261 K/mm3 (140-440) 05/02/21 04:33 Add Manual Diff Complete 04/30/21 04:48 Total Counted 100 04/30/21 04:48 Seg Neuts % (Manual) 96.0 % (40.0-70.0) H 04/30/21 04:48 Band Neutrophils % 1.0 % 04/30/21 04:48 Lymphocytes % (Manual) 2.0 % (13.4-35.0) L 04/30/21 04:48 Monocytes % (Manual) 1.0 % (0.0-7.3) 04/30/21 04:48 Nucleated RBC % 1.0 % (0.0-0.9) H 04/30/21 04:48 Seg Neutrophils # Man 21.6 K/mm3 (1.8-7.7) H 04/30/21 04:48 Band Neutrophils # 0.2 K/mm3 04/30/21 04:48 Lymphocytes # (Manual) 0.5 K/mm3 (1.2-5.4) L 04/30/21 04:48 Abs React Lymphs (Man) 0.0 K/mm3 04/30/21 04:48 Monocytes # (Manual) 0.2 K/mm3 (0.0-0.8) 04/30/21 04:48 Eosinophils # (Manual) 0.0 K/mm3 (0.0-0.4) 04/30/21 04:48 Basophils # (Manual) 0.0 K/mm3 (0.0-0.1) 04/30/21 04:48 Metamyelocytes # 0.0 K/mm3 04/30/21 04:48 Myelocytes # 0.0 K/mm3 04/30/21 04:48 Promyelocytes # 0.0 K/mm3 04/30/21 04:48 Blast Cells # 0.0 K/mm3 04/30/21 04:48 WBC Morphology Not Reportable 04/30/21 04:48 Hypersegmented Neuts Not Reportable 04/30/21 04:48 Hyposegmented Neuts Not Reportable 04/30/21 04:48 Hypogranular Neuts Not Reportable 04/30/21 04:48 Smudge Cells Not Reportable 04/30/21 04:48 Toxic Granulation 1+ 04/30/21 04:48 Toxic Vacuolation Not Reportable 04/30/21 04:48 Dohle Bodies Few 04/30/21 04:48 Pelger-Huet Anomaly Not Reportable 04/30/21 04:48 Randa Rods Not Reportable 04/30/21 04:48 Platelet Estimate Consistent w auto 04/30/21 04:48 Clumped Platelets Not Reportable 04/30/21 04:48 Plt Clumps, EDTA Not Reportable 04/30/21 04:48 Large Platelets Not Reportable 04/30/21 04:48 Giant Platelets Not Reportable 04/30/21 04:48 Platelet Satelliting Not Reportable 04/30/21 04:48 Plt Morphology Comment Not Reportable 04/30/21 04:48 RBC Morphology Not Reportable 04/30/21 04:48 Dimorphic RBCs Not Reportable 04/30/21 04:48 Polychromasia Not Reportable 04/30/21 04:48 Hypochromasia 1+ 04/30/21 04:48 Poikilocytosis Not Reportable 04/30/21 04:48 Anisocytosis 1+ 04/30/21 04:48 Microcytosis Not Reportable 04/30/21 04:48 Macrocytosis Not Reportable 04/30/21 04:48 Spherocytes Not Reportable 04/30/21 04:48 Pappenheimer Bodies Not Reportable 04/30/21 04:48 Sickle Cells Not Reportable 04/30/21 04:48 Target Cells Not Reportable 04/30/21 04:48 Tear Drop Cells Not Reportable 04/30/21 04:48 Ovalocytes Not Reportable 04/30/21 04:48 Helmet Cells Not Reportable 04/30/21 04:48 Donaldson-Star Bodies Not Reportable 04/30/21 04:48 [place] Rings Not Reportable 04/30/21 04:48 Alie Cells Not Reportable 04/30/21 04:48 Bite Cells Not Reportable 04/30/21 04:48 Crenated Cell Not Reportable 04/30/21 04:48 Elliptocytes Not Reportable 04/30/21 04:48 Acanthocytes (Spur) Not Reportable 04/30/21 04:48 Rouleaux Not Reportable 04/30/21 04:48 Hemoglobin C Crystals Not Reportable 04/30/21 04:48 Schistocytes Not Reportable 04/30/21 04:48 Malaria parasites Not Reportable 04/30/21 04:48 [place] Bodies Not Reportable 04/30/21 04:48 Hem Pathologist Commnt No 04/30/21 04:48 VBG pH 7.282 (7.320-7.420) L 04/29/21 04:48 Sodium 133 mmol/L (137-145) L 05/02/21 04:33 Potassium 3.8 mmol/L (3.6-5.0) 05/02/21 04:33 Chloride 98.2 mmol/L (98-107) 05/02/21 04:33 Carbon Dioxide 23 mmol/L (22-30) 05/02/21 04:33 Anion Gap 16 mmol/L 05/02/21 04:33 BUN 35 mg/dL (7-17) H 05/02/21 04:33 Creatinine 1.6 mg/dL (0.6-1.2) H 05/02/21 04:33 Estimated GFR 43 ml/min 05/02/21 04:33 BUN/Creatinine Ratio 22 % 05/02/21 04:33 Glucose 176 mg/dL (65-100) H 05/02/21 04:33 POC Glucose 172 mg/dL (70-105) H 05/02/21 07:57 Hemoglobin A1c 15.1 % (4-6) H 04/29/21 08:29 Lactic Acid 1.10 mmol/L (0.7-2.0) 05/01/21 05:55 Calcium 8.0 mg/dL (8.4-10.2) L 05/02/21 04:33 Phosphorus 4.30 mg/dL (2.5-4.5) D 05/01/21 05:55 Magnesium 1.70 mg/dL (1.7-2.3) 05/01/21 05:55 Total Bilirubin 0.40 mg/dL (0.1-1.2) 04/29/21 01:54 AST 6 units/L (5-40) 04/29/21 01:54 ALT 7 units/L (7-56) 04/29/21 01:54 Alkaline Phosphatase 174 units/L (35-129) H 04/29/21 01:54 Total Protein 7.7 g/dL (6.3-8.2) 04/29/21 01:54 Albumin 3.0 g/dL (3.9-5) L 04/29/21 01:54 Albumin/Globulin Ratio 0.6 % 04/29/21 01:54 Procalcitonin 5.16 ng/mL (<0.15) 05/01/21 05:55 HCG, Qual Negative (Negative) 04/29/21 01:54 Urine Color Yellow (Yellow) 04/29/21 Unknown Urine Turbidity Turbid (Clear) 04/29/21 Unknown Urine pH 5.0 (5.0-7.0) 04/29/21 Unknown Ur Specific [place] 1.013 (1.003-1.030) 04/29/21 Unknown Urine Protein 100 mg/dl mg/dL (Negative) 04/29/21 Unknown Urine Glucose (UA) >=500 mg/dL (Negative) 04/29/21 Unknown Urine Ketones Tr mg/dL (Negative) 04/29/21 Unknown Urine Blood Lg (Negative) 04/29/21 Unknown Urine Nitrite Neg (Negative) 04/29/21 Unknown Urine Bilirubin Neg (Negative) 04/29/21 Unknown Urine Urobilinogen 4.0 mg/dL (<2.0) 04/29/21 Unknown Ur Leukocyte Esterase Mod (Negative) 04/29/21 Unknown Urine WBC (Auto) > 182.0 /HPF (0.0-6.0) H 04/29/21 Unknown Urine RBC (Auto) 15.0 /HPF (0.0-6.0) 04/29/21 Unknown U Epithel Cells (Auto) 11.0 /HPF (0-13.0) 04/29/21 Unknown Urine Bacteria (Auto) 4+ /HPF (Negative) 04/29/21 Unknown Urine Mucus 3+ /HPF 04/29/21 Unknown Urine Creatinine 123.4 mg/dL (0.1-20.0) H 04/29/21 Unknown Urine Sodium 25 mmol/L 04/29/21 Unknown Random Vancomycin 9.1 ug/mL (0-40.0) 05/01/21 05:55 Microbiology: Microbiology 04/29/21 03:43 Peripheral/Venous Blood Culture - Preliminary NO GROWTH AFTER 72 HOURS 04/29/21 03:05 Peripheral/Venous Blood Culture - Preliminary NO GROWTH AFTER 72 HOURS 04/30/21 16:46 Buttock Surgical Culture - Preliminary 04/29/21 19:45 Urine,Catheterized - Straight Catheter Urine Culture - Preliminary Gram Negative Cornelius Cunningham/IV: Voiding Method Indwelling Catheter Active Medications - Current Medications Current Medications: Generic Name Dose Route Start Last Admin Trade Name Freq PRN Reason Stop Dose Admin Acetaminophen 650 mg 04/29/21 08:00 04/30/21 03:49 Acetaminophen 325 Mg Tab PO 650 mg Q6H PRN Administration Pain MILD(1-3)/Fever >100.5/GAUTAM Dextrose 0 ml 04/29/21 08:00 Dextrose 50% In Water (25gm) 50 Ml Syringe IV Q30MIN PRN Hypoglycemia Protocol Famotidine 10 mg 04/30/21 22:00 05/02/21 09:59 Famotidine 10 Mg Tab PO 10 mg BID JOANNE Administration Clindamycin HCl 600 mg in 50 mls @ 100 mls/hr 04/29/21 16:00 05/02/21 09:58 Cleocin 600 Mg/50 Ml IV 100 mls/hr Q8H JOANNE Administration Protocol Sodium Bicarbonate 150 meq/ 1,150 mls @ 100 mls/hr 04/30/21 12:30 05/01/21 21:24 Sterile Water IV 100 mls/hr DIRECT JOANNE Administration Ceftriaxone Sodium 1 gm in 50 mls @ 100 mls/hr 05/01/21 11:00 05/01/21 12:51 Rocephin/Ns 1 Gm/50 Ml IV 05/03/21 11:29 Infused Q24H [facility] Infusion Protocol Vancomycin HCl 1,750 mg/ 535 mls @ 333.333 mls/hr 05/02/21 17:00 Sodium Chloride IV Q24H JOANNE Insulin Glargine 25 units 05/01/21 22:00 05/01/21 21:11 Insulin Glargine 100 Units/Ml SUB-Q 25 units QHS JOANNE Administration Insulin Human Lispro 0 unit 04/30/21 11:30 05/02/21 08:09 Insulin Lispro 100 Unit/Ml SUB-Q 3 unit ACHS JOANNE Administration Protocol Morphine Sulfate 4 mg 04/29/21 09:00 Morphine 4 Mg/1 Ml Inj IV Q4H PRN Pain , Severe (7-10) Naloxone HCl 0.1 mg 04/29/21 09:00 Naloxone 0.4 Mg/1 Ml Inj IV Q2MIN PRN Res Rate </= 8 or 02 SAT < 92% Oxycodone/Acetaminophen 1 tab 04/29/21 09:00 05/02/21 09:59 Oxycodone /Acetaminophen 5-325mg Tab PO 1 tab Q6H PRN Administration Pain, Moderate (4-6) Sodium Chloride 10 ml 04/29/21 10:00 05/02/21 09:59 Sodium Chloride 0.9% 10 Ml Flush Syringe IV 10 ml BID JOANNE Administration Sodium Chloride 10 ml 04/29/21 09:00 Sodium Chloride 0.9% 10 Ml Flush Syringe IV PRN PRN LINE FLUSH Nutrition/Malnutrition Assess - Dietary Evaluation Nutrition/Malnutrition Findings: Nutrition Notes Start: 04/30/21 14:13 Freq: Status: Active Protocol: Document 04/30/21 14:13 GB (Rec: 04/30/21 14:45 GB [email or web address]) Nutrition Notes Need for Assessment generated from: pantographer Initial or Follow up Assessment Current Diagnosis Diabetes Other Pertinent Diagnosis DKA, right gluteal cellulitis Current Diet NPO Labs/Tests 04/30: Na 131, K 3.5, BUN 37, Creatinine 2.4, glucose 179, Ca 8.3 A1c: 15.5 Pertinent Medications D5 1000ml (170kcal), clindamycin Height 5 ft 9 in Weight 116 kg [place] Body Weight (kg) 65.90 BMI 37.8 Intake Prior to Admission Good Weight change and time frame Admit weight recorded. No reported significant weight changes upon admission Weight Status Obese Subjective/Other Information director decision support for skin risk assessment <=18 MD note/H&P: pt prefers not to use insuline due to weight gain. Noncompliance with DM meds Skin: Boil/abcess on right buttock GI: hypoactive bowel sounds Physical assessment note: on nasal cannula, severe weakness BLE/BUE, bedfast Percent of energy/protein needs met: 0% - currently NPO Burn Absent Trauma Absent GI Symptoms None Food Allergy No Skin Integrity/Comment Boil/abscess on right gluteal Current % PO Other Minimum of two criteria No #1 Nutrition Diagnosis No nutrition diagnosis at this time Comments: PO intake of meals at 75% or greater will meet minimal EEN. Etiology boil/abscess right gluteal As Evidenced by Signs and Symptoms director decision support for skin risk Is patient on ventilator? No Is Patient Ambulatory and/or Out of Bed No REE-([facility]-confined to bed) 2281.608 Kcal/Kg value to use for calculation 15 Approximate Energy Requirements Using 1740 kcal/Kg Calculation Used for Recommendations Kcal/kg Additional Notes Protein: 0.8-1 g/kg @ 116k-116g Fluids: 1 ml/kcal or per MD Nutrition Intervention Change Diet Order: Advance to Consistent Carbohydrate when medically feasible Nutrition Support: n/a Add Supplement/Snack (indicate name/kcal n/a /protein ) Goal #1 Diet started/advanced, consistent carbohyrdate by f/u Goal #2 PO intake of meals to be 75% or greater daily for LOS Follow-Up By: 05/02/21 Additional Comments f/u: PO intake, diet
[2021-05-02] MEDS: cefTRIAXone/NS 1 GM/50 ML 1 GM/50 ML BAG IV SCH (12:06)
--- NOTE | 2021-05-02 12:09 | Progress Note ---
Assessment and Plan 1. Acute kidney injury: Vasomotor JOMAR in the setting of DKA. Low FeNa. CT negative for any hydro. Baseline renal function is unknown. Continue IV fluids. Monitor renal function. Creatinine level improving. Avoid nephrotoxic agents. Meds dosage based on GFR. 2. FEN: Metabolic acidosis, improved, monitor. Monitor lytes and volume status. 3. DKA: 2/2 medical non-compliance. S/p Insulin drip. Monitor. 4. R buttock abscess/cellulitis: Abx. S/p I&D. Followed by General Surgery. 5. Anemia, POA: Trend. Subjective: Patient was seen and examined at the bedside. Examination: General appearance: well-developed, appears stated age, obese, no distress HEENT: atraumatic Neck: trachea midline Respiratory: ctab Heart: S1S2, regular, no murmur Abdomen: soft, bowel sounds heard, NT Integumentary: no rash on the inspected area, R thigh dressing Neurologic: AO, able to move extremities Ext: no edema Subjective Date of service: 05/02/21 Objective - Vital Signs Vital signs: Vital Signs - 12hr 05/02/21 05/02/21 05/02/21 00:11 00:15 00:21 Temperature Pulse Rate 73 72 71 Pulse Rate [ From Monitor] Respiratory 18 19 15 Rate Blood Pressure 133/68 139/72 139/72 O2 Sat by Pulse 98 98 98 Oximetry 05/02/21 05/02/21 05/02/21 00:25 00:30 00:35 Temperature Pulse Rate 71 70 72 Pulse Rate [ From Monitor] Respiratory 17 15 18 Rate Blood Pressure 139/72 131/72 131/72 O2 Sat by Pulse 97 98 97 Oximetry 05/02/21 05/02/21 05/02/21 00:41 00:45 00:51 Temperature Pulse Rate 70 71 72 Pulse Rate [ From Monitor] Respiratory 22 24 18 Rate Blood Pressure 131/72 122/70 122/70 O2 Sat by Pulse 97 97 97 Oximetry 05/02/21 05/02/21 05/02/21 00:55 01:00 01:05 Temperature Pulse Rate 72 72 71 Pulse Rate [ From Monitor] Respiratory 16 18 15 Rate Blood Pressure 122/70 123/67 123/67 O2 Sat by Pulse 97 97 97 Oximetry 05/02/21 05/02/21 05/02/21 01:11 01:15 01:21 Temperature Pulse Rate 70 71 72 Pulse Rate [ From Monitor] Respiratory 15 16 16 Rate Blood Pressure 123/67 128/68 128/68 O2 Sat by Pulse 97 97 97 Oximetry 05/02/21 05/02/21 05/02/21 01:25 01:30 01:35 Temperature Pulse Rate 71 71 72 Pulse Rate [ From Monitor] Respiratory 16 18 29 H Rate Blood Pressure 128/68 115/65 115/65 O2 Sat by Pulse 96 97 96 Oximetry 05/02/21 05/02/21 05/02/21 01:41 01:45 01:51 Temperature Pulse Rate 74 73 72 Pulse Rate [ From Monitor] Respiratory 14 16 18 Rate Blood Pressure 115/65 112/69 112/69 O2 Sat by Pulse 97 97 97 Oximetry 05/02/21 05/02/21 05/02/21 01:55 02:01 02:05 Temperature Pulse Rate 73 79 76 Pulse Rate [ From Monitor] Respiratory 15 14 18 Rate Blood Pressure 112/69 106/76 106/76 O2 Sat by Pulse 96 95 96 Oximetry 05/02/21 05/02/21 05/02/21 02:10 02:15 02:21 Temperature Pulse Rate 73 74 74 Pulse Rate [ From Monitor] Respiratory 16 16 16 Rate Blood Pressure 106/76 115/69 115/69 O2 Sat by Pulse 97 96 96 Oximetry 05/02/21 05/02/21 05/02/21 02:25 02:30 02:35 Temperature Pulse Rate 73 74 74 Pulse Rate [ From Monitor] Respiratory 16 16 15 Rate Blood Pressure 115/69 112/64 112/64 O2 Sat by Pulse 96 96 96 Oximetry 05/02/21 05/02/21 05/02/21 02:41 02:45 02:51 Temperature Pulse Rate 73 73 73 Pulse Rate [ From Monitor] Respiratory 16 18 17 Rate Blood Pressure 112/64 122/68 106/76 O2 Sat by Pulse 96 96 96 Oximetry 05/02/21 05/02/21 05/02/21 02:55 03:00 03:05 Temperature Pulse Rate 73 73 73 Pulse Rate [ From Monitor] Respiratory 16 16 16 Rate Blood Pressure 106/76 119/64 119/64 O2 Sat by Pulse 96 96 96 Oximetry 05/02/21 05/02/21 05/02/21 03:11 03:15 03:21 Temperature Pulse Rate 73 74 74 Pulse Rate [ From Monitor] Respiratory 16 17 16 Rate Blood Pressure 119/64 110/65 110/65 O2 Sat by Pulse 96 93 94 Oximetry 05/02/21 05/02/21 05/02/21 03:25 03:30 03:35 Temperature Pulse Rate 74 74 74 Pulse Rate [ From Monitor] Respiratory 16 15 15 Rate Blood Pressure 110/65 113/67 113/67 O2 Sat by Pulse 92 92 93 Oximetry 05/02/21 05/02/21 05/02/21 03:41 03:45 03:47 Temperature Pulse Rate 74 74 Pulse Rate [ From Monitor] Respiratory 15 15 21 Rate Blood Pressure 113/67 120/69 O2 Sat by Pulse 93 93 98 Oximetry 05/02/21 05/02/21 05/02/21 03:51 03:55 04:00 Temperature 98.9 F Pulse Rate 74 75 77 Pulse Rate [ From Monitor] Respiratory 15 16 19 Rate Blood Pressure 120/69 120/69 126/72 O2 Sat by Pulse 92 93 95 Oximetry 05/02/21 05/02/21 05/02/21 04:05 04:11 04:15 Temperature Pulse Rate 76 78 76 Pulse Rate [ From Monitor] Respiratory 18 22 18 Rate Blood Pressure 126/72 126/72 137/77 O2 Sat by Pulse 94 95 94 Oximetry 05/02/21 05/02/21 05/02/21 04:21 04:25 04:30 Temperature Pulse Rate 77 76 78 Pulse Rate [ From Monitor] Respiratory 20 17 19 Rate Blood Pressure 137/77 137/77 135/75 O2 Sat by Pulse 94 93 94 Oximetry 05/02/21 05/02/21 05/02/21 04:35 04:41 04:45 Temperature Pulse Rate 82 79 80 Pulse Rate [ From Monitor] Respiratory 22 20 21 Rate Blood Pressure 135/75 135/75 142/76 O2 Sat by Pulse 93 93 Oximetry 05/02/21 05/02/21 05/02/21 04:51 04:55 05:00 Temperature Pulse Rate 82 84 81 Pulse Rate [ From Monitor] Respiratory 24 23 23 Rate Blood Pressure 142/76 142/76 148/87 O2 Sat by Pulse Oximetry 05/02/21 05/02/21 05/02/21 05:05 05:11 05:15 Temperature Pulse Rate 82 92 H 89 Pulse Rate [ From Monitor] Respiratory 23 13 16 Rate Blood Pressure 148/87 148/87 148/87 O2 Sat by Pulse 90 93 Oximetry 05/02/21 05/02/21 05/02/21 05:21 05:25 05:30 Temperature Pulse Rate 81 80 79 Pulse Rate [ From Monitor] Respiratory 24 24 20 Rate Blood Pressure 148/101 148/101 134/77 O2 Sat by Pulse 96 96 96 Oximetry 05/02/21 05/02/21 05/02/21 05:35 05:40 05:45 Temperature Pulse Rate 77 76 79 Pulse Rate [ From Monitor] Respiratory 17 17 24 Rate Blood Pressure 134/77 134/77 140/74 O2 Sat by Pulse 96 96 96 Oximetry 05/02/21 05/02/21 05/02/21 05:50 05:55 06:00 Temperature Pulse Rate 76 75 76 Pulse Rate [ From Monitor] Respiratory 22 19 19 Rate Blood Pressure 140/74 134/77 126/74 O2 Sat by Pulse 95 95 95 Oximetry 05/02/21 05/02/21 05/02/21 06:05 06:11 06:15 Temperature Pulse Rate 75 75 76 Pulse Rate [ From Monitor] Respiratory 20 19 19 Rate Blood Pressure 126/74 126/74 126/74 O2 Sat by Pulse 95 94 94 Oximetry 05/02/21 05/02/21 05/02/21 06:21 06:25 06:30 Temperature Pulse Rate 74 75 75 Pulse Rate [ From Monitor] Respiratory 20 20 19 Rate Blood Pressure 126/74 126/74 133/64 O2 Sat by Pulse 94 94 93 Oximetry 05/02/21 05/02/21 05/02/21 06:35 06:41 06:45 Temperature Pulse Rate 74 75 75 Pulse Rate [ From Monitor] Respiratory 19 19 19 Rate Blood Pressure 133/64 133/64 125/64 O2 Sat by Pulse 94 94 94 Oximetry 05/02/21 05/02/21 05/02/21 06:51 06:55 07:00 Temperature Pulse Rate 74 75 75 Pulse Rate [ From Monitor] Respiratory 18 20 19 Rate Blood Pressure 125/64 125/64 132/69 O2 Sat by Pulse 94 94 94 Oximetry 05/02/21 05/02/21 05/02/21 07:05 07:11 07:15 Temperature Pulse Rate 76 76 76 Pulse Rate [ From Monitor] Respiratory 21 20 20 Rate Blood Pressure 132/69 132/69 137/63 O2 Sat by Pulse 94 94 94 Oximetry 05/02/21 05/02/21 05/02/21 07:21 07:25 07:30 Temperature Pulse Rate 76 75 75 Pulse Rate [ From Monitor] Respiratory 18 21 Rate Blood Pressure 137/63 137/63 140/71 O2 Sat by Pulse 94 94 95 Oximetry 05/02/21 05/02/21 05/02/21 07:35 07:41 07:45 Temperature Pulse Rate 76 76 77 Pulse Rate [ From Monitor] Respiratory 20 22 Rate Blood Pressure 140/71 140/71 134/70 O2 Sat by Pulse 94 95 95 Oximetry 05/02/21 05/02/21 05/02/21 07:51 07:55 08:00 Temperature Pulse Rate 77 77 80 Pulse Rate [ 81 From Monitor] Respiratory 19 Rate Blood Pressure 134/70 134/70 147/76 O2 Sat by Pulse 95 95 95 Oximetry 05/02/21 05/02/21 05/02/21 08:05 08:11 08:15 Temperature Pulse Rate 81 81 80 Pulse Rate [ From Monitor] Respiratory 21 27 H 24 Rate Blood Pressure 147/76 147/76 146/75 O2 Sat by Pulse 94 94 95 Oximetry 05/02/21 05/02/21 05/02/21 08:21 08:25 08:30 Temperature Pulse Rate 76 76 76 Pulse Rate [ From Monitor] Respiratory 22 Rate Blood Pressure 146/75 146/75 153/80 O2 Sat by Pulse 95 94 95 Oximetry 05/02/21 05/02/21 05/02/21 08:35 08:41 08:45 Temperature Pulse Rate 85 83 80 Pulse Rate [ From Monitor] Respiratory 20 28 H 30 H Rate Blood Pressure 153/80 153/80 156/84 O2 Sat by Pulse 94 95 93 Oximetry 05/02/21 05/02/21 05/02/21 08:51 08:55 09:01 Temperature Pulse Rate 79 80 84 Pulse Rate [ From Monitor] Respiratory 27 H 25 H 29 H Rate Blood Pressure 156/84 156/84 152/74 O2 Sat by Pulse 93 93 93 Oximetry 05/02/21 05/02/21 05/02/21 09:05 09:11 09:15 Temperature Pulse Rate 79 78 78 Pulse Rate [ From Monitor] Respiratory 27 H 24 30 H Rate Blood Pressure 152/74 152/74 139/77 O2 Sat by Pulse 92 93 93 Oximetry 05/02/21 05/02/21 05/02/21 09:21 09:25 09:30 Temperature Pulse Rate 77 80 78 Pulse Rate [ From Monitor] Respiratory 24 22 Rate Blood Pressure 139/77 139/77 143/79 O2 Sat by Pulse 93 94 93 Oximetry - Lab 05/02/21 04:33 05/02/21 04:33 Most recent lab results Calcium 8.0 mg/dL (8.4-10.2) L 05/02/21 04:33 Phosphorus 4.30 mg/dL (2.5-4.5) D 05/01/21 05:55 Magnesium 1.70 mg/dL (1.7-2.3) 05/01/21 05:55 Urine Creatinine 123.4 mg/dL (0.1-20.0) H 04/29/21 Unknown Urine Sodium 25 mmol/L 04/29/21 Unknown Medications & Allergies - Medications Allergies/Adverse Reactions: Allergies No Known Allergies Allergy (Verified 04/29/21 05:23) Home Medications: Home Medications Medication Instructions Recorded Confirmed Last Taken Type Efinaconazole [Jublia] 1 applic TP QDAY #4 [email or web address] 03/12/20 Unknown Rx Active Medications: Generic Name Dose Route Start Last Admin Trade Name Freq PRN Reason Stop Dose Admin Acetaminophen 650 mg 04/29/21 08:00 04/30/21 03:49 Acetaminophen 325 Mg Tab PO 650 mg Q6H PRN Administration Pain MILD(1-3)/Fever >100.5/GAUTAM Dextrose 0 ml 04/29/21 08:00 Dextrose 50% In Water (25gm) 50 Ml Syringe IV Q30MIN PRN Hypoglycemia Protocol Famotidine 10 mg 04/30/21 22:00 05/02/21 09:59 Famotidine 10 Mg Tab PO 10 mg BID JOANNE Administration Clindamycin HCl 600 mg in 50 mls @ 100 mls/hr 04/29/21 16:00 05/02/21 09:58 Cleocin 600 Mg/50 Ml IV 100 mls/hr Q8H JOANNE Administration Protocol Sodium Bicarbonate 150 meq/ 1,150 mls @ 100 mls/hr 04/30/21 12:30 05/01/21 21:24 Sterile Water IV 100 mls/hr DIRECT JOANNE Administration Ceftriaxone Sodium 1 gm in 50 mls @ 100 mls/hr 05/01/21 11:00 05/02/21 12:06 Rocephin/Ns 1 Gm/50 Ml IV 05/03/21 11:29 100 mls/hr Q24H JOANNE Administration Protocol Vancomycin HCl 1,750 mg/ 535 mls @ 333.333 mls/hr 05/02/21 17:00 Sodium Chloride IV Q24H JOANNE Insulin Glargine 25 units 05/01/21 22:00 05/01/21 21:11 Insulin Glargine 100 Units/Ml SUB-Q 25 units QHS JOANNE Administration Insulin Human Lispro 0 unit 04/30/21 11:30 05/02/21 12:06 Insulin Lispro 100 Unit/Ml SUB-Q 3 unit ACHS [facility] Administration Protocol Morphine Sulfate 4 mg 04/29/21 09:00 Morphine 4 Mg/1 Ml Inj IV Q4H PRN Pain , Severe (7-10) Naloxone HCl 0.1 mg 04/29/21 09:00 Naloxone 0.4 Mg/1 Ml Inj IV Q2MIN PRN Res Rate </= 8 or 02 SAT < 92% Oxycodone/Acetaminophen 1 tab 04/29/21 09:00 05/02/21 09:59 Oxycodone /Acetaminophen 5-325mg Tab PO 1 tab Q6H PRN Administration Pain, Moderate (4-6) Sodium Chloride 10 ml 04/29/21 10:00 05/02/21 09:59 Sodium Chloride 0.9% 10 Ml Flush Syringe IV 10 ml BID JOANNE Administration Sodium Chloride 10 ml 04/29/21 09:00 Sodium Chloride 0.9% 10 Ml Flush Syringe IV PRN PRN LINE FLUSH
--- NOTE | 2021-05-02 12:58 | Progress Note ---
Assessment and Plan Septic shock Diabetic ketoacidosis Acute kidney injury Anemia Lactic acidosis Right gluteal abscess IVC filter in situ Obesity Medication and healthcare noncomplianc Hyponatremia Mild metabolic acidosis - no new issues today, continue care as below ; - wound care per RN / WCN under surgeons direction - prn supplemental oxygen to keep O2 sats > 90% - prn bronchodilators (NERY) with pulm hygiene per RT - avoid nephrotoxins, renally dose all medications - mobility protocols to prevent pressure ulcers - PT/OT as tolerated - Wound care per RN/WCT - continue accuchecks with glycemic control per SSI for target blood glucose < 180 mg/dL - tobacco abstinence strongly counseled at the bedside - home oxygen evaluation at discharge - GI & VTE prophylaxis - Flu & pneumovax per protocol - prn analgesia per pain score - continue other care per attending / other consultants ... re-evaluate in am & prn Subjective Date of service: 05/02/21 Principal diagnosis: Septic shock; DKA; JOMAR; Obesity; Right gluteal abscess Interval history: Patient is seen today for: Septic shock; DKA; JOMAR; Obesity; Right gluteal abscess Seen and examined at bedside; 24hour events reviewed; nursing and respiratory care staff consulted; no adverse overnight events reported to me; resting peacefully in bed; ID to see; no N/V/F/C Objective Vital Signs - 12hr 05/02/21 05/02/21 05/02/21 01:00 01:05 01:11 Temperature Pulse Rate 72 71 70 Pulse Rate [ From Monitor] Respiratory 18 15 15 Rate Blood Pressure 123/67 123/67 123/67 O2 Sat by Pulse 97 97 97 Oximetry 05/02/21 05/02/21 05/02/21 01:15 01:21 01:25 Temperature Pulse Rate 71 72 71 Pulse Rate [ From Monitor] Respiratory 16 16 16 Rate Blood Pressure 128/68 128/68 128/68 O2 Sat by Pulse 97 97 96 Oximetry 05/02/21 05/02/21 05/02/21 01:30 01:35 01:41 Temperature Pulse Rate 71 72 74 Pulse Rate [ From Monitor] Respiratory 18 29 H 14 Rate Blood Pressure 115/65 115/65 115/65 O2 Sat by Pulse 97 96 97 Oximetry 05/02/21 05/02/21 05/02/21 01:45 01:51 01:55 Temperature Pulse Rate 73 72 73 Pulse Rate [ From Monitor] Respiratory 16 18 15 Rate Blood Pressure 112/69 112/69 112/69 O2 Sat by Pulse 97 97 96 Oximetry 05/02/21 05/02/21 05/02/21 02:01 02:05 02:10 Temperature Pulse Rate 79 76 73 Pulse Rate [ From Monitor] Respiratory 14 18 16 Rate Blood Pressure 106/76 106/76 106/76 O2 Sat by Pulse 95 96 97 Oximetry 05/02/21 05/02/21 05/02/21 02:15 02:21 02:25 Temperature Pulse Rate 74 74 73 Pulse Rate [ From Monitor] Respiratory 16 16 16 Rate Blood Pressure 115/69 115/69 115/69 O2 Sat by Pulse 96 96 96 Oximetry 05/02/21 05/02/21 05/02/21 02:30 02:35 02:41 Temperature Pulse Rate 74 74 73 Pulse Rate [ From Monitor] Respiratory 16 15 16 Rate Blood Pressure 112/64 112/64 112/64 O2 Sat by Pulse 96 96 96 Oximetry 05/02/21 05/02/21 05/02/21 02:45 02:51 02:55 Temperature Pulse Rate 73 73 73 Pulse Rate [ From Monitor] Respiratory 18 17 16 Rate Blood Pressure 122/68 106/76 106/76 O2 Sat by Pulse 96 96 96 Oximetry 05/02/21 05/02/21 05/02/21 03:00 03:05 03:11 Temperature Pulse Rate 73 73 73 Pulse Rate [ From Monitor] Respiratory 16 16 16 Rate Blood Pressure 119/64 119/64 119/64 O2 Sat by Pulse 96 96 96 Oximetry 05/02/21 05/02/21 05/02/21 03:15 03:21 03:25 Temperature Pulse Rate 74 74 74 Pulse Rate [ From Monitor] Respiratory 17 16 16 Rate Blood Pressure 110/65 110/65 110/65 O2 Sat by Pulse 93 94 92 Oximetry 05/02/21 05/02/21 05/02/21 03:30 03:35 03:41 Temperature Pulse Rate 74 74 74 Pulse Rate [ From Monitor] Respiratory 15 15 15 Rate Blood Pressure 113/67 113/67 113/67 O2 Sat by Pulse 92 93 93 Oximetry 05/02/21 05/02/21 05/02/21 03:45 03:47 03:51 Temperature Pulse Rate 74 74 Pulse Rate [ From Monitor] Respiratory 15 21 15 Rate Blood Pressure 120/69 120/69 O2 Sat by Pulse 93 98 92 Oximetry 05/02/21 05/02/21 05/02/21 03:55 04:00 04:05 Temperature 98.9 F Pulse Rate 75 77 76 Pulse Rate [ From Monitor] Respiratory 16 19 18 Rate Blood Pressure 120/69 126/72 126/72 O2 Sat by Pulse 93 95 94 Oximetry 05/02/21 05/02/21 05/02/21 04:11 04:15 04:21 Temperature Pulse Rate 78 76 77 Pulse Rate [ From Monitor] Respiratory 22 18 20 Rate Blood Pressure 126/72 137/77 137/77 O2 Sat by Pulse 95 94 94 Oximetry 05/02/21 05/02/21 05/02/21 04:25 04:30 04:35 Temperature Pulse Rate 76 78 82 Pulse Rate [ From Monitor] Respiratory 17 19 22 Rate Blood Pressure 137/77 135/75 135/75 O2 Sat by Pulse 93 94 93 Oximetry 05/02/21 05/02/21 05/02/21 04:41 04:45 04:51 Temperature Pulse Rate 79 80 82 Pulse Rate [ From Monitor] Respiratory 20 21 24 Rate Blood Pressure 135/75 142/76 142/76 O2 Sat by Pulse 93 Oximetry 05/02/21 05/02/21 05/02/21 04:55 05:00 05:05 Temperature Pulse Rate 84 81 82 Pulse Rate [ From Monitor] Respiratory 23 23 23 Rate Blood Pressure 142/76 148/87 148/87 O2 Sat by Pulse Oximetry 05/02/21 05/02/21 05/02/21 05:11 05:15 05:21 Temperature Pulse Rate 92 H 89 81 Pulse Rate [ From Monitor] Respiratory 13 16 24 Rate Blood Pressure 148/87 148/87 148/101 O2 Sat by Pulse 90 93 96 Oximetry 05/02/21 05/02/21 05/02/21 05:25 05:30 05:35 Temperature Pulse Rate 80 79 77 Pulse Rate [ From Monitor] Respiratory 24 20 17 Rate Blood Pressure 148/101 134/77 134/77 O2 Sat by Pulse 96 96 96 Oximetry 05/02/21 05/02/21 05/02/21 05:40 05:45 05:50 Temperature Pulse Rate 76 79 76 Pulse Rate [ From Monitor] Respiratory 17 24 22 Rate Blood Pressure 134/77 140/74 140/74 O2 Sat by Pulse 96 96 95 Oximetry 05/02/21 05/02/21 05/02/21 05:55 06:00 06:05 Temperature Pulse Rate 75 76 75 Pulse Rate [ From Monitor] Respiratory 19 19 20 Rate Blood Pressure 134/77 126/74 126/74 O2 Sat by Pulse 95 95 95 Oximetry 05/02/21 05/02/21 05/02/21 06:11 06:15 06:21 Temperature Pulse Rate 75 76 74 Pulse Rate [ From Monitor] Respiratory 19 19 20 Rate Blood Pressure 126/74 126/74 126/74 O2 Sat by Pulse 94 94 94 Oximetry 05/02/21 05/02/21 05/02/21 06:25 06:30 06:35 Temperature Pulse Rate 75 75 74 Pulse Rate [ From Monitor] Respiratory 20 19 19 Rate Blood Pressure 126/74 133/64 133/64 O2 Sat by Pulse 94 93 94 Oximetry 05/02/21 05/02/21 05/02/21 06:41 06:45 06:51 Temperature Pulse Rate 75 75 74 Pulse Rate [ From Monitor] Respiratory 19 19 18 Rate Blood Pressure 133/64 125/64 125/64 O2 Sat by Pulse 94 94 94 Oximetry 05/02/21 05/02/21 05/02/21 06:55 07:00 07:05 Temperature Pulse Rate 75 75 76 Pulse Rate [ From Monitor] Respiratory 20 19 21 Rate Blood Pressure 125/64 132/69 132/69 O2 Sat by Pulse 94 94 94 Oximetry 05/02/21 05/02/21 05/02/21 07:11 07:15 07:21 Temperature Pulse Rate 76 76 76 Pulse Rate [ From Monitor] Respiratory 20 20 21 Rate Blood Pressure 132/69 137/63 137/63 O2 Sat by Pulse 94 94 94 Oximetry 05/02/21 05/02/21 05/02/21 07:25 07:30 07:35 Temperature Pulse Rate 75 75 76 Pulse Rate [ From Monitor] Respiratory 18 21 19 Rate Blood Pressure 137/63 140/71 140/71 O2 Sat by Pulse 94 95 94 Oximetry 05/02/21 05/02/21 05/02/21 07:41 07:45 07:51 Temperature Pulse Rate 76 77 77 Pulse Rate [ From Monitor] Respiratory 20 22 19 Rate Blood Pressure 140/71 134/70 134/70 O2 Sat by Pulse 95 95 95 Oximetry 1105/02/21 05/02/21 07:55 08:00 08:05 Temperature Pulse Rate 77 80 81 Pulse Rate [ 81 From Monitor] Respiratory 21 19 21 Rate Blood Pressure 134/70 147/76 147/76 O2 Sat by Pulse 95 95 94 Oximetry 05/02/21 05/02/21 05/02/21 08:11 08:15 08:21 Temperature Pulse Rate 81 80 76 Pulse Rate [ From Monitor] Respiratory 27 H 24 21 Rate Blood Pressure 147/76 146/75 146/75 O2 Sat by Pulse 94 95 95 Oximetry 05/02/21 05/02/21 05/02/21 08:25 08:30 08:35 Temperature Pulse Rate 76 76 85 Pulse Rate [ From Monitor] Respiratory 20 22 20 Rate Blood Pressure 146/75 153/80 153/80 O2 Sat by Pulse 94 95 94 Oximetry 05/02/21 05/02/21 05/02/21 08:41 08:45 08:51 Temperature Pulse Rate 83 80 79 Pulse Rate [ From Monitor] Respiratory 28 H 30 H 27 H Rate Blood Pressure 153/80 156/84 156/84 O2 Sat by Pulse 95 93 93 Oximetry 05/02/21 05/02/21 05/02/21 08:55 09:01 09:05 Temperature Pulse Rate 80 84 79 Pulse Rate [ From Monitor] Respiratory 25 H 29 H 27 H Rate Blood Pressure 156/84 152/74 152/74 O2 Sat by Pulse 93 93 92 Oximetry 05/02/21 05/02/21 05/02/21 09:11 09:15 09:21 Temperature Pulse Rate 78 78 77 Pulse Rate [ From Monitor] Respiratory 24 30 H 21 Rate Blood Pressure 152/74 139/77 139/77 O2 Sat by Pulse 93 93 93 Oximetry 05/02/21 05/02/21 05/02/21 09:25 09:30 09:35 Temperature Pulse Rate 80 78 79 Pulse Rate [ From Monitor] Respiratory 24 22 18 Rate Blood Pressure 139/77 143/79 143/79 O2 Sat by Pulse 94 93 95 Oximetry 05/02/21 05/02/21 05/02/21 09:41 09:45 09:51 Temperature Pulse Rate 81 78 Pulse Rate [ From Monitor] Respiratory 19 18 22 Rate Blood Pressure 143/79 151/83 151/83 O2 Sat by Pulse 93 94 93 Oximetry 05/02/21 05/02/21 05/02/21 09:55 10:00 10:01 Temperature Pulse Rate 78 76 84 Pulse Rate [ From Monitor] Respiratory 25 H 10 L Rate Blood Pressure 151/83 151/83 O2 Sat by Pulse 94 94 Oximetry 05/02/21 05/02/21 05/02/21 10:05 10:11 10:15 Temperature Pulse Rate 79 76 77 Pulse Rate [ From Monitor] Respiratory 25 H 22 20 Rate Blood Pressure 137/72 137/72 144/81 O2 Sat by Pulse 95 95 95 Oximetry 05/02/21 05/02/21 05/02/21 10:21 10:25 10:30 Temperature Pulse Rate 76 75 75 Pulse Rate [ From Monitor] Respiratory 19 19 19 Rate Blood Pressure 144/81 144/81 145/76 O2 Sat by Pulse 95 95 95 Oximetry 05/02/21 05/02/21 05/02/21 10:35 10:41 10:45 Temperature Pulse Rate 75 75 76 Pulse Rate [ From Monitor] Respiratory 16 16 19 Rate Blood Pressure 145/76 145/76 131/71 O2 Sat by Pulse 94 95 94 Oximetry 05/02/21 05/02/21 05/02/21 10:51 10:55 11:00 Temperature Pulse Rate 76 76 80 Pulse Rate [ From Monitor] Respiratory 17 17 24 Rate Blood Pressure 131/71 131/71 120/66 O2 Sat by Pulse 93 93 93 Oximetry 05/02/21 05/02/21 05/02/21 11:05 11:11 11:15 Temperature Pulse Rate 77 79 77 Pulse Rate [ From Monitor] Respiratory 19 22 17 Rate Blood Pressure 120/66 120/66 136/70 O2 Sat by Pulse 93 92 92 Oximetry 05/02/21 05/02/21 05/02/21 11:21 11:25 11:30 Temperature Pulse Rate 79 83 79 Pulse Rate [ From Monitor] Respiratory 21 14 24 Rate Blood Pressure 136/70 136/70 133/67 O2 Sat by Pulse 92 94 92 Oximetry 05/02/21 05/02/21 05/02/21 11:35 11:41 11:45 Temperature Pulse Rate 81 77 76 Pulse Rate [ From Monitor] Respiratory 26 H 18 19 Rate Blood Pressure 133/67 133/67 138/81 O2 Sat by Pulse 94 94 93 Oximetry 05/02/21 05/02/21 05/02/21 11:51 11:55 12:00 Temperature Pulse Rate 75 75 76 Pulse Rate [ 74 From Monitor] Respiratory 21 18 17 Rate Blood Pressure 138/81 138/81 145/81 O2 Sat by Pulse 93 94 94 Oximetry 05/02/21 05/02/21 12:05 12:11 Temperature Pulse Rate 77 74 Pulse Rate [ From Monitor] Respiratory 20 19 Rate Blood Pressure 145/81 145/81 O2 Sat by Pulse 94 94 Oximetry Constitutional: no acute distress Eyes: non-icteric ENT: oropharynx moist Neck: supple, no lymphadenopathy, no JVD Effort: normal Ascultation: Bilateral: clear, diminished breath sounds Percussion: Bilateral: not dull Cardiovascular: regular rate and rhythm Gastrointestinal: normoactive bowel sounds, soft, non-tender, non-distended Integumentary: other (Right gluteal / perineal abscess) Extremities: no cyanosis, no edema, pulses normal, no ischemia or petechiae Neurologic: non-focal exam, pupils equal and round, CN II-XII normal, motor strength normal and Psychiatric: mood appropriate, affect normal CBC and BMP: 05/02/21 04:33 05/02/21 04:33 Abnormal lab findings: Abnormal Labs 04/29/21 04/29/21 04/29/21 01:54 01:54 03:05 WBC 22.1 H RBC Hgb 8.8 L Hct 28.5 L MCV 74 L MCH 23 L RDW 16.5 H Seg Neuts % (Manual) 71.0 H Lymphocytes % (Manual) 5.0 L Monocytes % (Manual) 10.0 H Nucleated RBC % Seg Neutrophils # Man 15.7 H Lymphocytes # (Manual) 1.1 L Monocytes # (Manual) 2.2 H VBG pH Sodium 124 L Potassium Chloride 88.7 L Carbon Dioxide 19 L BUN 33 H Creatinine 2.3 H Glucose 563 H* POC Glucose Hemoglobin A1c Lactic Acid 2.40 H* Calcium Alkaline Phosphatase 174 H Albumin 3.0 L Urine WBC (Auto) Urine Creatinine 04/29/21 04/29/21 04/29/21 04:48 04:48 04:48 WBC RBC Hgb Hct MCV MCH RDW Seg Neuts % (Manual) Lymphocytes % (Manual) Monocytes % (Manual) Nucleated RBC % Seg Neutrophils # Man Lymphocytes # (Manual) Monocytes # (Manual) VBG pH 7.282 L Sodium 124 L Potassium Chloride 89.3 L Carbon Dioxide 18 L BUN 35 H Creatinine 2.4 H Glucose 570 H* POC Glucose Hemoglobin A1c Lactic Acid 2.20 H* Calcium 8.1 L Alkaline Phosphatase Albumin Urine WBC (Auto) Urine Creatinine 04/29/21 04/29/21 04/29/21 07:04 08:23 08:29 WBC RBC Hgb Hct MCV MCH RDW Seg Neuts % (Manual) Lymphocytes % (Manual) Monocytes % (Manual) Nucleated RBC % Seg Neutrophils # Man Lymphocytes # (Manual) Monocytes # (Manual) VBG pH Sodium Potassium Chloride Carbon Dioxide BUN Creatinine Glucose POC Glucose 571 H 426 H Hemoglobin A1c Lactic Acid 2.60 H* Calcium Alkaline Phosphatase Albumin Urine WBC (Auto) Urine Creatinine 04/29/21 04/29/21 04/29/21 08:29 08:29 11:22 WBC RBC Hgb Hct MCV MCH RDW Seg Neuts % (Manual) Lymphocytes % (Manual) Monocytes % (Manual) Nucleated RBC % Seg Neutrophils # Man Lymphocytes # (Manual) Monocytes # (Manual) VBG pH Sodium 126 L 125 L Potassium Chloride 91.9 L 94.0 L Carbon Dioxide 15 L 12 L BUN 35 H 36 H Creatinine 2.3 H 2.3 H Glucose 429 H 368 H POC Glucose Hemoglobin A1c 15.1 H Lactic Acid Calcium 8.1 L 8.2 L Alkaline Phosphatase Albumin Urine WBC (Auto) Urine Creatinine 04/29/21 04/29/21 04/29/21 12:00 13:41 13:43 WBC RBC Hgb Hct MCV MCH RDW Seg Neuts % (Manual) Lymphocytes % (Manual) Monocytes % (Manual) Nucleated RBC % Seg Neutrophils # Man Lymphocytes # (Manual) Monocytes # (Manual) VBG pH Sodium 126 L Potassium Chloride 93.3 L Carbon Dioxide 14 L BUN 38 H Creatinine 2.4 H Glucose 399 H POC Glucose 395 H 367 H Hemoglobin A1c Lactic Acid Calcium 8.2 L Alkaline Phosphatase Albumin Urine WBC (Auto) Urine Creatinine 04/29/21 04/29/21 04/29/21 15:11 15:28 16:24 WBC RBC Hgb Hct MCV MCH RDW Seg Neuts % (Manual) Lymphocytes % (Manual) Monocytes % (Manual) Nucleated RBC % Seg Neutrophils # Man Lymphocytes # (Manual) Monocytes # (Manual) VBG pH Sodium 124 L Potassium Chloride 93.2 L Carbon Dioxide 16 L BUN 37 H Creatinine 2.6 H Glucose 379 H POC Glucose 356 H 350 H Hemoglobin A1c Lactic Acid Calcium 8.1 L Alkaline Phosphatase Albumin Urine WBC (Auto) Urine Creatinine 04/29/21 04/29/21 04/29/21 17:00 17:23 18:03 WBC RBC Hgb Hct MCV MCH RDW Seg Neuts % (Manual) Lymphocytes % (Manual) Monocytes % (Manual) Nucleated RBC % Seg Neutrophils # Man Lymphocytes # (Manual) Monocytes # (Manual) VBG pH Sodium 127 L Potassium Chloride 95.4 L Carbon Dioxide 16 L BUN 38 H Creatinine 2.8 H Glucose 348 H POC Glucose 332 H 296 H Hemoglobin A1c Lactic Acid Calcium 8.2 L Alkaline Phosphatase Albumin Urine WBC (Auto) Urine Creatinine 04/29/21 04/29/21 04/29/21 19:09 20:02 20:59 WBC RBC Hgb Hct MCV MCH RDW Seg Neuts % (Manual) Lymphocytes % (Manual) Monocytes % (Manual) Nucleated RBC % Seg Neutrophils # Man Lymphocytes # (Manual) Monocytes # (Manual) VBG pH Sodium 129 L Potassium Chloride 97.0 L Carbon Dioxide 15 L BUN 38 H Creatinine 3.0 H Glucose 232 H POC Glucose 268 H 241 H Hemoglobin A1c Lactic Acid Calcium Alkaline Phosphatase Albumin Urine WBC (Auto) Urine Creatinine 04/29/21 04/29/21 04/29/21 21:05 22:03 23:04 WBC RBC Hgb Hct MCV MCH RDW Seg Neuts % (Manual) Lymphocytes % (Manual) Monocytes % (Manual) Nucleated RBC % Seg Neutrophils # Man Lymphocytes # (Manual) Monocytes # (Manual) VBG pH Sodium Potassium Chloride Carbon Dioxide BUN Creatinine Glucose POC Glucose 207 H 196 H 163 H Hemoglobin A1c Lactic Acid Calcium Alkaline Phosphatase Albumin Urine WBC (Auto) Urine Creatinine 04/29/21 04/29/21 04/29/21 Unknown Unknown 23:59 WBC RBC Hgb Hct MCV MCH RDW Seg Neuts % (Manual) Lymphocytes % (Manual) Monocytes % (Manual) Nucleated RBC % Seg Neutrophils # Man Lymphocytes # (Manual) Monocytes # (Manual) VBG pH Sodium Potassium Chloride Carbon Dioxide BUN Creatinine Glucose POC Glucose 194 H Hemoglobin A1c Lactic Acid Calcium Alkaline Phosphatase Albumin Urine WBC (Auto) > 182.0 H Urine Creatinine 123.4 H 04/30/21 04/30/21 04/30/21 00:47 01:03 01:59 WBC RBC Hgb Hct MCV MCH RDW Seg Neuts % (Manual) Lymphocytes % (Manual) Monocytes % (Manual) Nucleated RBC % Seg Neutrophils # Man Lymphocytes # (Manual) Monocytes # (Manual) VBG pH Sodium 131 L Potassium Chloride Carbon Dioxide 17 L BUN 39 H Creatinine 2.8 H Glucose 206 H POC Glucose 191 H 168 H Hemoglobin A1c Lactic Acid Calcium Alkaline Phosphatase Albumin Urine WBC (Auto) Urine Creatinine 04/30/21 04/30/21 04/30/21 03:04 03:54 03:58 WBC RBC Hgb Hct MCV MCH RDW Seg Neuts % (Manual) Lymphocytes % (Manual) Monocytes % (Manual) Nucleated RBC % Seg Neutrophils # Man Lymphocytes # (Manual) Monocytes # (Manual) VBG pH Sodium Potassium Chloride Carbon Dioxide BUN Creatinine Glucose POC Glucose 168 H 183 H 157 H Hemoglobin A1c Lactic Acid Calcium Alkaline Phosphatase Albumin Urine WBC (Auto) Urine Creatinine 04/30/21 04/30/21 04/30/21 04:48 04:48 05:06 WBC 22.5 H RBC 3.56 L Hgb 8.2 L Hct 25.8 L MCV 73 L MCH 23 L RDW 17.0 H Seg Neuts % (Manual) 96.0 H Lymphocytes % (Manual) 2.0 L Monocytes % (Manual) Nucleated RBC % 1.0 H Seg Neutrophils # Man 21.6 H Lymphocytes # (Manual) 0.5 L Monocytes # (Manual) VBG pH Sodium 131 L Potassium Chloride Carbon Dioxide 17 L BUN 38 H Creatinine 2.3 H Glucose 207 H POC Glucose 186 H Hemoglobin A1c Lactic Acid Calcium 8.3 L Alkaline Phosphatase Albumin Urine WBC (Auto) Urine Creatinine 04/30/21 04/30/21 04/30/21 06:00 06:49 06:50 WBC RBC Hgb Hct MCV MCH RDW Seg Neuts % (Manual) Lymphocytes % (Manual) Monocytes % (Manual) Nucleated RBC % Seg Neutrophils # Man Lymphocytes # (Manual) Monocytes # (Manual) VBG pH Sodium Potassium Chloride Carbon Dioxide BUN Creatinine Glucose POC Glucose 170 H 181 H 167 H Hemoglobin A1c Lactic Acid Calcium Alkaline Phosphatase Albumin Urine WBC (Auto) Urine Creatinine 04/30/21 04/30/21 04/30/21 07:33 08:39 10:27 WBC RBC Hgb Hct MCV MCH RDW Seg Neuts % (Manual) Lymphocytes % (Manual) Monocytes % (Manual) Nucleated RBC % Seg Neutrophils # Man Lymphocytes # (Manual) Monocytes # (Manual) VBG pH Sodium 131 L Potassium 3.5 L Chloride Carbon Dioxide 16 L BUN 37 H Creatinine 2.4 H Glucose 179 H POC Glucose 147 H 127 H Hemoglobin A1c Lactic Acid Calcium 8.3 L Alkaline Phosphatase Albumin Urine WBC (Auto) Urine Creatinine 04/30/21 04/30/21 04/30/21 11:51 17:19 21:02 WBC RBC Hgb Hct MCV MCH RDW Seg Neuts % (Manual) Lymphocytes % (Manual) Monocytes % (Manual) Nucleated RBC % Seg Neutrophils # Man Lymphocytes # (Manual) Monocytes # (Manual) VBG pH Sodium Potassium Chloride Carbon Dioxide BUN Creatinine Glucose POC Glucose 130 H 242 H 226 H Hemoglobin A1c Lactic Acid Calcium Alkaline Phosphatase Albumin Urine WBC (Auto) Urine Creatinine 05/01/21 05/01/21 05/01/21 05:55 05:55 07:40 WBC 19.0 H RBC 3.30 L Hgb 7.3 L Hct 23.3 L MCV 71 L MCH 22 L RDW 17.4 H Seg Neuts % (Manual) Lymphocytes % (Manual) Monocytes % (Manual) Nucleated RBC % Seg Neutrophils # Man Lymphocytes # (Manual) Monocytes # (Manual) VBG pH Sodium 133 L Potassium Chloride 97.9 L Carbon Dioxide 17 L BUN 39 H Creatinine 2.1 H Glucose 232 H POC Glucose 224 H Hemoglobin A1c Lactic Acid Calcium 8.3 L Alkaline Phosphatase Albumin Urine WBC (Auto) Urine Creatinine 05/01/21 05/01/21 05/01/21 11:07 15:47 20:54 WBC RBC Hgb Hct MCV MCH RDW Seg Neuts % (Manual) Lymphocytes % (Manual) Monocytes % (Manual) Nucleated RBC % Seg Neutrophils # Man Lymphocytes # (Manual) Monocytes # (Manual) VBG pH Sodium Potassium Chloride Carbon Dioxide BUN Creatinine Glucose POC Glucose 200 H 189 H 171 H Hemoglobin A1c Lactic Acid Calcium Alkaline Phosphatase Albumin Urine WBC (Auto) Urine Creatinine 05/02/21 05/02/21 05/02/21 04:33 04:33 07:57 WBC 13.3 H RBC 3.14 L Hgb 7.3 L Hct 22.3 L MCV 71 L MCH 23 L RDW 17.2 H Seg Neuts % (Manual) Lymphocytes % (Manual) Monocytes % (Manual) Nucleated RBC % Seg Neutrophils # Man Lymphocytes # (Manual) Monocytes # (Manual) VBG pH Sodium 133 L Potassium Chloride Carbon Dioxide BUN 35 H Creatinine 1.6 H Glucose 176 H POC Glucose 172 H Hemoglobin A1c Lactic Acid Calcium 8.0 L Alkaline Phosphatase Albumin Urine WBC (Auto) Urine Creatinine 05/02/21 11:28 WBC RBC Hgb Hct MCV MCH RDW Seg Neuts % (Manual) Lymphocytes % (Manual) Monocytes % (Manual) Nucleated RBC % Seg Neutrophils # Man Lymphocytes # (Manual) Monocytes # (Manual) VBG pH Sodium Potassium Chloride Carbon Dioxide BUN Creatinine Glucose POC Glucose 173 H Hemoglobin A1c Lactic Acid Calcium Alkaline Phosphatase Albumin Urine WBC (Auto) Urine Creatinine Allied health notes reviewed: nursing
--- NOTE | 2021-05-02 14:18 | Consultation ---
History of Present Illness - Reason for Consult Consult date: 05/02/21 - History of Present Illness 40-year-old female past medical history uncontrolled type 2 diabetes, obesity presented to hospital complaining of right buttock pain which began approximately 5 days prior to admission. She initially noted a small pustule on the buttock which is increasing and expressed purulent drainage. She complains of weakness and fatigue as well as subjective fever at home. She has not had anything similar previously. She was taken to the OR 04/30/2021 for surgical debridement of necrotic skin and subcutaneous tissue of the right buttock. An 18 cm abscess cavity was found, and purulent fluid was expressed from the wound. Febrile to 101 with a white count of 13.3 which is improved from admission. Decreased renal function, estimated GFR 43. Blood cultures no growth so far urine cultures with ESBL Klebsiella oxytoca, surgical cultures no growth so far. Currently on clindamycin, ceftriaxone, vancomycin. Imaging personally reviewed: CT abdomen pelvis: Soft tissue edema and induration of the right buttock IVC filter in place. Chest x-ray: Mild bibasilar atelectasis. Review of Systems: Bold if positive, otherwise negative General: fevers, chills, rigors HEENT: visual disturbance, diplopia, eye pain Respiratory: cough, sputum, hemoptysis, shortness of breath Cardiovascular: chest pain, syncope Gastrointestinal: nausea, vomiting, diarrhea, abdominal pain Genitourinary: dysuria, hematuria, flank pain Musculoskeletal: neck pain, back pain, joint pain, edema Neurologic: headaches, seizures Hematologic: easy bruising or bleeding Endocrine: night sweats, acute weight loss Skin: rash, jaundice, redness Psychiatric: suicidal, homicidal ideation Past History Past Medical History: diabetes Social history: no significant social history Family history: no significant family history Medications and Allergies Allergies Allergy/AdvReac Type Severity Reaction Status Date / Time No Known Allergies Allergy Verified 04/29/21 05:23 Home Medications Medication Instructions Recorded Confirmed Last Taken Type Efinaconazole [Jublia] 1 applic TP QDAY #4 andrew.w.[email or web address] 03/12/20 Unknown Rx Active Meds: Active Medications Acetaminophen (Acetaminophen 325 Mg Tab) 650 mg PO Q6H PRN PRN Reason: Pain MILD(1-3)/Fever >100.5/GAUTAM Last Admin: 04/30/21 03:49 Dose: 650 mg Documented by: Dextrose (Dextrose 50% In Water (25gm) 50 Ml Syringe) 0 ml IV Q30MIN PRN; Protocol PRN Reason: Hypoglycemia Famotidine (Famotidine 10 Mg Tab) 10 mg PO BID [facility] Last Admin: 05/02/21 09:59 Dose: 10 mg Documented by: Clindamycin HCl (Cleocin 600 Mg/50 Ml) 600 mg in 50 mls @ 100 mls/hr IV Q8H [facility]; Protocol Last Admin: 05/02/21 09:58 Dose: 100 mls/hr Documented by: Ceftriaxone Sodium (Rocephin/Ns 1 Gm/50 Ml) 1 gm in 50 mls @ 100 mls/hr IV Q24H [facility]; Protocol Stop: 05/03/21 11:29 Last Admin: 05/02/21 12:06 Dose: 100 mls/hr Documented by: Vancomycin HCl 1,750 mg/ (Sodium Chloride) 535 mls @ 333.333 mls/hr IV Q24H [facility] Insulin Glargine (Insulin Glargine 100 Units/Ml) 25 units SUB-Q QHS [facility] Last Admin: 05/01/21 21:11 Dose: 25 units Documented by: Insulin Human Lispro (Insulin Lispro 100 Unit/Ml) 0 unit SUB-Q ACHS [facility]; Protocol Last Admin: 05/02/21 12:06 Dose: 3 unit Documented by: Morphine Sulfate (Morphine 4 Mg/1 Ml Inj) 4 mg IV Q4H PRN PRN Reason: Pain , Severe (7-10) Naloxone HCl (Naloxone 0.4 Mg/1 Ml Inj) 0.1 mg IV Q2MIN PRN PRN Reason: Res Rate </= 8 or 02 SAT < 92% Oxycodone/Acetaminophen (Oxycodone /Acetaminophen 5-325mg Tab) 1 tab PO Q6H PRN PRN Reason: Pain, Moderate (4-6) Last Admin: 05/02/21 09:59 Dose: 1 tab Documented by: Sodium Chloride (Sodium Chloride 0.9% 10 Ml Flush Syringe) 10 ml IV BID [facility] Last Admin: 05/02/21 09:59 Dose: 10 ml Documented by: Sodium Chloride (Sodium Chloride 0.9% 10 Ml Flush Syringe) 10 ml IV PRN PRN PRN Reason: LINE FLUSH Physical Examination - Physical Exam Narrative exam: Physical Exam: Constitutional: Alert, cooperative. No acute distress Head, Ears, Nose: Normocephalic, atraumatic. External ears, nose normal Eyes: Conjunctivae/corneas clear. No icterus. No ptosis. Neck: Supple, no meningeal signs Oral: dentition fair, no thrush Cardiovascular: S1, S2 normal. Respiratory: Good air entry, clear to auscultation bilaterally GI: Soft, non-tender; bowel sounds normal. No peritoneal signs. Musculoskeletal: No pedal edema, no cyanosis. Skin: No rash or abscess Hem/Lymphatic: No palpable cervical or supraclavicular nodes. No lymphangitis Psych: Mood ok. Affect normal Neurological: Awake, alert, oriented. No gross abnormality - Constitutional Vitals: Vital Signs Temp Pulse Resp BP Pulse Ox 101 F H 74 21 146/67 96 05/02/21 12:00 05/02/21 13:41 05/02/21 13:41 05/02/21 13:41 05/02/21 13:41 Temperature -Last 24 Hours Temperature 101 F Temperature 98.9 F Temperature 98.5 F Temperature 98.3 F Temperature 98 F Results - Labs CBC & Chem 7: 05/02/21 04:33 05/02/21 04:33 Labs: Abnormal lab results 05/01/21 05/01/21 05/02/21 Range/Units 15:47 20:54 04:33 WBC 13.3 H (4.5-11.0) K/mm3 RBC 3.14 L (3.65-5.03) M/mm3 Hgb 7.3 L (10.1-14.3) gm/dl Hct 22.3 L (30.3-42.9) % MCV 71 L (79-97) fl MCH 23 L (28-32) pg RDW 17.2 H (13.2-15.2) % Sodium (137-145) mmol/L BUN (7-17) mg/dL Creatinine (0.6-1.2) mg/dL Glucose (65-100) mg/dL POC Glucose 189 H 171 H (70-105) mg/dL Calcium (8.4-10.2) mg/dL 05/02/21 05/02/21 05/02/21 Range/Units 04:33 07:57 11:28 WBC (4.5-11.0) K/mm3 RBC (3.65-5.03) M/mm3 Hgb (10.1-14.3) gm/dl Hct (30.3-42.9) % MCV (79-97) fl MCH (28-32) pg RDW (13.2-15.2) % Sodium 133 L (137-145) mmol/L BUN 35 H (7-17) mg/dL Creatinine 1.6 H (0.6-1.2) mg/dL Glucose 176 H (65-100) mg/dL POC Glucose 172 H 173 H (70-105) mg/dL Calcium 8.0 L (8.4-10.2) mg/dL Assessment and Plan Cultures: 04/29/2021 blood culture: No growth so far 04/29/2021 urine culture ESBL Klebsiella oxytoca 04/30/2021 buttock surgical culture: No growth so far A/P: 40-year-old female past medical history obesity, uncontrolled diabetes admitted with perianal abscess #Acute sepsis: With fevers and leukocytosis. Secondary to abscess. #Perianal abscess: Likely secondary to uncontrolled diabetes. Status post incision and drainage and debridement of necrotic tissue. Purulent material was evacuated from the area by Dr. Pina. The rectum was spared. #JOMAR: Renally dose antibiotics #Diabetes: tight glycemic control for best outcomes. #Acute UTI: With ESBL Klebsiella Recs: -Stop ceftriaxone -Start ertapenem 1 g every 24 hours -Continue vancomycin for now. Goal trough 10-20, dosed per pharmacy. -Stop clindamycin -Follow-up blood and surgical cultures -Ideally able to send with p.o. culture guided antibiotics. -If cultures remain negative, likely plan on discharging with Levaquin renally dosed and metronidazole to complete 7 days postop Thank you for the consult, we will continue to follow. Dr. Mccormick taking over Wednesday. Jermaine Naidu MD [facility] O: [phone] F: [phone]
[2021-05-02] MEDS: ERTAPENEM 1 GM in SODIUM CHLORIDE 0.9% 50 ML IV SCH (16:00)
[2021-05-02] MEDS ORDERED: SODIUM CHLORIDE 0.9% 1000 ML 1,000 ML ONE (17:44)
[2021-05-02] MEDS: VANCOMYCIN 1,750 MG in SODIUM CHLORIDE 0.9% 500 ML 500 ML IV SCH ×2 (18:30→20:17)
[2021-05-02] MEDS: MORPHINE 4 MG/1 ML INJ IV PRN ×2 (18:30→22:36)
[2021-05-02] MEDS: INSULIN GLARGINE 100 UNITS/ML SUB-Q SCH (21:05)
[2021-05-03] MEDS: ACETAMINOPHEN 325 MG TAB PO PRN (00:32)
[2021-05-03] MEDS: MORPHINE 4 MG/1 ML INJ IV PRN ×4 (02:33→17:35)
[2021-05-03 05:44] LABS: Hematocrit 23.4 % (30.3-42.9); Hemoglobin 7.5 gm/dl (10.1-14.3); Mean Corpuscular HGB Conc 32 % (30-34); Mean Corpuscular Volume 72 fl (79-97); Platelet Count 253 K/mm3 (140-440); Red Blood Count 3.27 M/mm3 (3.65-5.03); Red Cell Distribution Width 17.4 % (13.2-15.2)
[2021-05-03 05:59] LABS: BUN/Creatinine Ratio 21; Blood Urea Nitrogen 25 mg/dL (7-17); Calcium 7.9 mg/dL (8.4-10.2); Hemolysis Index 1
--- NOTE | 2021-05-03 08:10 | Progress Note ---
Assessment and Plan Assessment and plan: 40-year-old female history of type 2 diabetes who presented for right buttock pain. Found to be in DKA and to have right gluteal cellulitis. Transferred from ICU to Med/Surg. Patient currently improving. #Right gluteal necrotizing soft tissue infection #Right gluteal abscess -s/p I&D with debridement on 04/30 -continue vancomycin and ertapenem -Infectious disease consulted for final antibiotic recommendations, assistance appreciated #UTI -Urine culture growing Klebsiella oxytoca -continue antibiotics #Diabetic ketoacidosis-resolved #Uncontrolled type 2 diabetes -A1c 15.5% -Patient reported noncompliance with insulin due to weight gain -continue Lantus 25U QHS plus sliding scale -will require supplies and insulin upon discharge #Acute kidney injury-resolved -SCr 2.3 -> 1.2 -Likely vasomotor nephropathy due to DKA #Hyponatremia-improved -Likely secondary to hypovolemia and hyperglycemia -We will continue to monitor #Anion gap metabolic acidosis-resolved #Elevated lactate-resolved Disposition Plan: Home Total Time Spent with Patient (Minutes): 20 minutes History Interval history: No acute events overnight. Patient reports being in pain. Has been requesting medications as needed and they provide relief. No other complaints at this time. Hospitalist Physical - Physical exam Narrative exam: GENERAL: Obese, in no acute distress. HEENT: Nasal cannula 1 L/min CHEST/LUNGS: CTAB on room air HEART/CARDIOVASCULAR: Regular rate and rhythm. No murmur, rubs or gallops appreciated. ABDOMEN: +BS. NT/ND. NEURO: No focal motor deficit appreciated. MUSCULOSKELETAL: No joint effusion EXTREMITIES: No cyanosis, clubbing or edema. PSYCH: Cooperative. - Constitutional Vitals: Temp Pulse Resp BP Pulse Ox 98.7 F 75 18 133/74 93 05/03/21 03:21 05/03/21 03:21 05/03/21 03:21 05/03/21 03:21 05/03/21 03:22 General appearance: Present: no acute distress Results - Labs CBC & Chem 7: 05/03/21 05:01 05/03/21 05:01 Labs: Laboratory Last Values WBC 11.7 K/mm3 (4.5-11.0) H 05/03/21 05:01 RBC 3.27 M/mm3 (3.65-5.03) L 05/03/21 05:01 Hgb 7.5 gm/dl (10.1-14.3) L 05/03/21 05:01 Hct 23.4 % (30.3-42.9) L 05/03/21 05:01 MCV 72 fl (79-97) L 05/03/21 05:01 MCH 23 pg (28-32) L 05/03/21 05:01 MCHC 32 % (30-34) 05/03/21 05:01 RDW 17.4 % (13.2-15.2) H 05/03/21 05:01 Plt Count 253 K/mm3 (140-440) 05/03/21 05:01 Add Manual Diff Complete 04/30/21 04:48 Total Counted 100 04/30/21 04:48 Seg Neuts % (Manual) 96.0 % (40.0-70.0) H 04/30/21 04:48 Band Neutrophils % 1.0 % 04/30/21 04:48 Lymphocytes % (Manual) 2.0 % (13.4-35.0) L 04/30/21 04:48 Monocytes % (Manual) 1.0 % (0.0-7.3) 04/30/21 04:48 Nucleated RBC % 1.0 % (0.0-0.9) H 04/30/21 04:48 Seg Neutrophils # Man 21.6 K/mm3 (1.8-7.7) H 04/30/21 04:48 Band Neutrophils # 0.2 K/mm3 04/30/21 04:48 Lymphocytes # (Manual) 0.5 K/mm3 (1.2-5.4) L 04/30/21 04:48 Abs React Lymphs (Man) 0.0 K/mm3 04/30/21 04:48 Monocytes # (Manual) 0.2 K/mm3 (0.0-0.8) 04/30/21 04:48 Eosinophils # (Manual) 0.0 K/mm3 (0.0-0.4) 04/30/21 04:48 Basophils # (Manual) 0.0 K/mm3 (0.0-0.1) 04/30/21 04:48 Metamyelocytes # 0.0 K/mm3 04/30/21 04:48 Myelocytes # 0.0 K/mm3 04/30/21 04:48 Promyelocytes # 0.0 K/mm3 04/30/21 04:48 Blast Cells # 0.0 K/mm3 04/30/21 04:48 WBC Morphology Not Reportable 04/30/21 04:48 Hypersegmented Neuts Not Reportable 04/30/21 04:48 Hyposegmented Neuts Not Reportable 04/30/21 04:48 Hypogranular Neuts Not Reportable 04/30/21 04:48 Smudge Cells Not Reportable 04/30/21 04:48 Toxic Granulation 1+ 04/30/21 04:48 Toxic Vacuolation Not Reportable 04/30/21 04:48 Dohle Bodies Few 04/30/21 04:48 Pelger-Huet Anomaly Not Reportable 04/30/21 04:48 Randa Rods Not Reportable 04/30/21 04:48 Platelet Estimate Consistent w auto 04/30/21 04:48 Clumped Platelets Not Reportable 04/30/21 04:48 Plt Clumps, EDTA Not Reportable 04/30/21 04:48 Large Platelets Not Reportable 04/30/21 04:48 Giant Platelets Not Reportable 04/30/21 04:48 Platelet Satelliting Not Reportable 04/30/21 04:48 Plt Morphology Comment Not Reportable 04/30/21 04:48 RBC Morphology Not Reportable 04/30/21 04:48 Dimorphic RBCs Not Reportable 04/30/21 04:48 Polychromasia Not Reportable 04/30/21 04:48 Hypochromasia 1+ 04/30/21 04:48 Poikilocytosis Not Reportable 04/30/21 04:48 Anisocytosis 1+ 04/30/21 04:48 Microcytosis Not Reportable 04/30/21 04:48 Macrocytosis Not Reportable 04/30/21 04:48 Spherocytes Not Reportable 04/30/21 04:48 Pappenheimer Bodies Not Reportable 04/30/21 04:48 Sickle Cells Not Reportable 04/30/21 04:48 Target Cells Not Reportable 04/30/21 04:48 Tear Drop Cells Not Reportable 04/30/21 04:48 Ovalocytes Not Reportable 04/30/21 04:48 Helmet Cells Not Reportable 04/30/21 04:48 Donaldson-Banner Bodies Not Reportable 04/30/21 04:48 [place] Rings Not Reportable 04/30/21 04:48 Alie Cells Not Reportable 04/30/21 04:48 Bite Cells Not Reportable 04/30/21 04:48 Crenated Cell Not Reportable 04/30/21 04:48 Elliptocytes Not Reportable 04/30/21 04:48 Acanthocytes (Spur) Not Reportable 04/30/21 04:48 Rouleaux Not Reportable 04/30/21 04:48 Hemoglobin C Crystals Not Reportable 04/30/21 04:48 Schistocytes Not Reportable 04/30/21 04:48 Malaria parasites Not Reportable 04/30/21 04:48 [place]cho Bodies Not Reportable 04/30/21 04:48 Hem Pathologist Commnt No 04/30/21 04:48 VBG pH 7.282 (7.320-7.420) L 04/29/21 04:48 Sodium 136 mmol/L (137-145) L 05/03/21 05:01 Potassium 3.5 mmol/L (3.6-5.0) L 05/03/21 05:01 Chloride 101.1 mmol/L (98-107) 05/03/21 05:01 Carbon Dioxide 24 mmol/L (22-30) 05/03/21 05:01 Anion Gap 14 mmol/L 05/03/21 05:01 BUN 25 mg/dL (7-17) H 05/03/21 05:01 Creatinine 1.2 mg/dL (0.6-1.2) 05/03/21 05:01 Estimated GFR > 60 ml/min 05/03/21 05:01 BUN/Creatinine Ratio 21 % 05/03/21 05:01 Glucose 115 mg/dL (65-100) H 05/03/21 05:01 POC Glucose 106 mg/dL (70-105) H 05/03/21 07:37 Hemoglobin A1c 15.1 % (4-6) H 04/29/21 08:29 Lactic Acid 1.10 mmol/L (0.7-2.0) 05/01/21 05:55 Calcium 7.9 mg/dL (8.4-10.2) L 05/03/21 05:01 Phosphorus 4.30 mg/dL (2.5-4.5) D 05/01/21 05:55 Magnesium 1.70 mg/dL (1.7-2.3) 05/01/21 05:55 Total Bilirubin 0.40 mg/dL (0.1-1.2) 04/29/21 01:54 AST 6 units/L (5-40) 04/29/21 01:54 ALT 7 units/L (7-56) 04/29/21 01:54 Alkaline Phosphatase 174 units/L (35-129) H 04/29/21 01:54 Total Protein 7.7 g/dL (6.3-8.2) 04/29/21 01:54 Albumin 3.0 g/dL (3.9-5) L 04/29/21 01:54 Albumin/Globulin Ratio 0.6 % 04/29/21 01:54 Procalcitonin 5.16 ng/mL (<0.15) 05/01/21 05:55 HCG, Qual Negative (Negative) 04/29/21 01:54 Urine Color Yellow (Yellow) 04/29/21 Unknown Urine Turbidity Turbid (Clear) 04/29/21 Unknown Urine pH 5.0 (5.0-7.0) 04/29/21 Unknown Ur Specific [place] 1.013 (1.003-1.030) 04/29/21 Unknown Urine Protein 100 mg/dl mg/dL (Negative) 04/29/21 Unknown Urine Glucose (UA) >=500 mg/dL (Negative) 04/29/21 Unknown Urine Ketones Tr mg/dL (Negative) 04/29/21 Unknown Urine Blood Lg (Negative) 04/29/21 Unknown Urine Nitrite Neg (Negative) 04/29/21 Unknown Urine Bilirubin Neg (Negative) 04/29/21 Unknown Urine Urobilinogen 4.0 mg/dL (<2.0) 04/29/21 Unknown Ur Leukocyte Esterase Mod (Negative) 04/29/21 Unknown Urine WBC (Auto) > 182.0 /HPF (0.0-6.0) H 04/29/21 Unknown Urine RBC (Auto) 15.0 /HPF (0.0-6.0) 04/29/21 Unknown U Epithel Cells (Auto) 11.0 /HPF (0-13.0) 04/29/21 Unknown Urine Bacteria (Auto) 4+ /HPF (Negative) 04/29/21 Unknown Urine Mucus 3+ /HPF 04/29/21 Unknown Urine Creatinine 123.4 mg/dL (0.1-20.0) H 04/29/21 Unknown Urine Sodium 25 mmol/L 04/29/21 Unknown Random Vancomycin 9.1 ug/mL (0-40.0) 05/01/21 05:55 Microbiology: Microbiology 04/29/21 19:45 Urine,Catheterized - Straight Catheter Urine Culture - Final Klebsiella Oxytoca 04/30/21 16:46 Buttock Surgical Culture - Preliminary 04/29/21 03:43 Peripheral/Venous Blood Culture - Preliminary NO GROWTH AFTER 72 HOURS 04/29/21 03:05 Peripheral/Venous Blood Culture - Preliminary NO GROWTH AFTER 72 HOURS Cunningham/IV: Voiding Method Indwelling Catheter Active Medications - Current Medications Current Medications: Generic Name Dose Route Start Last Admin Trade Name Freq PRN Reason Stop Dose Admin Acetaminophen 650 mg 04/29/21 08:00 05/03/21 00:32 Acetaminophen 325 Mg Tab PO 650 mg Q6H PRN Administration Pain MILD(1-3)/Fever >100.5/GAUTAM Dextrose 0 ml 04/29/21 08:00 Dextrose 50% In Water (25gm) 50 Ml Syringe IV Q30MIN PRN Hypoglycemia Protocol Famotidine 10 mg 04/30/21 22:00 05/02/21 21:00 Famotidine 10 Mg Tab PO 10 mg BID JOANNE Administration Vancomycin HCl 1,750 mg/ 535 mls @ 333.333 mls/hr 05/02/21 17:00 05/02/21 20:17 Sodium Chloride IV 333.333 mls/hr Q24H JOANNE Administration Ertapenem 1 gm/ Sodium 50 mls @ 100 mls/hr 05/02/21 15:00 05/02/21 16:00 Chloride IV 05/08/21 10:29 100 mls/hr QDAY JOANNE Administration Insulin Glargine 25 units 05/01/21 22:00 05/02/21 21:05 Insulin Glargine 100 Units/Ml SUB-Q Not Given QHS JOANNE Insulin Human Lispro 0 unit 04/30/21 11:30 05/02/21 21:05 Insulin Lispro 100 Unit/Ml SUB-Q Not Given ACHS [facility] Protocol Morphine Sulfate 4 mg 04/29/21 09:00 05/03/21 02:33 Morphine 4 Mg/1 Ml Inj IV 4 mg Q4H PRN Administration Pain , Severe (7-10) Naloxone HCl 0.1 mg 04/29/21 09:00 Naloxone 0.4 Mg/1 Ml Inj IV Q2MIN PRN Res Rate </= 8 or 02 SAT < 92% Oxycodone/Acetaminophen 1 tab 04/29/21 09:00 05/02/21 20:11 Oxycodone /Acetaminophen 5-325mg Tab PO 1 tab Q6H PRN Administration Pain, Moderate (4-6) Sodium Chloride 10 ml 04/29/21 10:00 05/02/21 21:04 Sodium Chloride 0.9% 10 Ml Flush Syringe IV 10 ml BID JOANNE Administration Sodium Chloride 10 ml 04/29/21 09:00 Sodium Chloride 0.9% 10 Ml Flush Syringe IV PRN PRN LINE FLUSH Nutrition/Malnutrition Assess - Dietary Evaluation Nutrition/Malnutrition Findings: Nutrition Notes Start: 04/30/21 14:13 Freq: Status: Active Protocol: Document 05/02/21 14:37 DIPTI (Rec: 05/02/21 14:58 [email or web address] [id number]) Nutrition Notes Initial or Follow up Reassessment Current Diagnosis Diabetes Other Pertinent Diagnosis (R) gluteal abscess s/p debridement, DKA Current Diet Consistent CHO Labs/Tests BUN 35 Cr 1.6 BG 176 POC Glu range: 171-224 Pertinent Medications Lantus Height 5 ft 9 in Weight 116 kg [place] Body Weight (kg) 65.90 BMI 37.8 Weight Status Obese Subjective/Other Information Pt transferred to telemetry floor and diet advanced yesterday. Pt tolerating PO diet; c/o scratchy throat. She consumed 33% of three meals yesterday. Pt diagnosed with DM 11 yrs ago; she admits to medication non- compliance. She says the insulin makes her gain wt. Pt unfamiliar with food sources of CHO. She knows that she needs to get BS controlled. Percent of energy/protein needs met: 39% energy 26% pro (excludes ONS) Burn Absent Trauma Absent #1 Nutrition Diagnosis Limited adherence to nutrition -related recommendations Etiology knowledge deficits As Evidenced by Signs and Symptoms A1C 15.5; (R) gluteal abscess requiring surgery Is patient on ventilator? No Is Patient Ambulatory and/or Out of Bed No REE-([facility]-confined to bed) 2281.608 Kcal/Kg value to use for calculation 15 Approximate Energy Requirements Using 1740 kcal/Kg Calculation Used for Recommendations Kcal/kg Additional Notes Pro needs 1.25-1.5g/kg adjBW: 114-136g/day Fluid needs 1ml/kcal Nutrition Intervention Change Diet Order: Continue current diet order Add Supplement/Snack (indicate name/kcal Glucerna BID /protein ) Provides kCal: 440 Provides Protein (gm) 20 Teaching Recipient Patient Learning Readiness Good Teaching Methods Discussion,Handout Response to Teaching Verbalize understanding Education Handouts Provided Hemoglobin A1C and Blood Sugar Control Carbohydrate Counting for People with Diabetes Meal Structuring Discussed relationship between BS control and wound healing Barriers to Learning No Barriers RD phone number provided Yes Patient aware of follow up options Yes Goal #1 PO intake of meals plus ONS to meet at least 75% energy and pro needs Goal #2 Improved BS control Goal #3 Adherence to CHO-controlled diet Goal #4 Wound healing Follow-Up By: 05/06/21 Additional Comments F/U: intakes (meals/ONS), BS
[2021-05-03] MEDS: INSULIN LISPRO 100 UNIT/ML SUB-Q SCH ×4 (08:11→21:33)
[2021-05-03] MEDS: FAMOTIDINE 10 MG TAB PO SCH ×2 (09:58→21:32)
[2021-05-03] MEDS: ERTAPENEM 1 GM in SODIUM CHLORIDE 0.9% 50 ML IV SCH (09:58)
[2021-05-03] MEDS: oxyCODONE /ACETAMINOPHEN 5-325MG TAB PO PRN ×3 (10:00→21:33)
[2021-05-03] MEDS ORDERED: POTASSIUM CHLORIDE ER 20 MEQ TAB PO ONE (11:12)
--- NOTE | 2021-05-03 11:13 | Event Note ---
Date: 05/03/21 Pt chart reviewed. Afebrile. WBC trending down. Blood sugars better controlled. 40-year-old female status post excisional debridement of necrotic skin and subcutaneous tissue of right buttock, POD 3 1. right gluteal abscess, necrotizing soft tissue infection 2. uncontrolled DM - DKA, HbA1C 15.5 Plan: 1. consistent carb diet with supplements (albumin 3.0 - suspect malnutrition) 2. abx per ID 3. OR cultures pending 4. prn pain control 5. daily packing changes - orders placed for RN to perform 6. strict glucose control 7. case management c/s, [facility] - pt unfunded Ok to dc from surgery standpoint when outpatient abx recs finalized per ID. - Wound care instructions: Remove all packing from wound. Cleanse wound with wound cleanser or soap and water. Pack gently with one piece of kerlix moistened with 1/2 strength dakins solution. Perform packing changes daily. Keep covered with dry dressing. - Upon dc patient patient may follow up in wound care center at [facility]. May call [phone] to make appointment. Or may follow up with PCP at [place] and be referred to [place] wound clinic. D/W Dr. Diallo Thank you. Please call with any questions or concerns.
--- NOTE | 2021-05-03 11:13 | Progress Note ---
Assessment and Plan 1. Acute kidney injury: Vasomotor JOMAR in the setting of DKA. Low FeNa. CT negative for any hydro. Baseline renal function is unknown. Continue IV fluids. Monitor renal function. Creatinine level has improved. Avoid nephrotoxic agents. Meds dosage based on GFR. 2. FEN: Metabolic acidosis, improved, monitor. Monitor lytes and volume status. 3. DKA: 2/2 medical non-compliance. S/p Insulin drip. Monitor. 4. R buttock abscess/cellulitis: Abx. S/p I&D. Followed by General Surgery. 5. Anemia, POA: Trend. Will sign off. Subjective: Patient was seen and examined at the bedside. Doing better. Examination: General appearance: well-developed, appears stated age, obese, no distress HEENT: atraumatic Neck: trachea midline Respiratory: ctab Heart: S1S2, regular, no murmur Abdomen: soft, bowel sounds heard, NT Integumentary: no rash on the inspected area, R thigh dressing Neurologic: AO, able to move extremities Ext: no edema Subjective Date of service: 05/03/21 Principal diagnosis: Septic shock; DKA; JOMAR; Obesity; Right gluteal abscess Objective - Vital Signs Vital signs: Vital Signs - 12hr 05/03/21 05/03/21 05/03/21 03:21 03:22 10:00 Temperature 98.7 F Pulse Rate 75 Respiratory 18 Rate Blood Pressure 133/74 O2 Sat by Pulse 82 L 93 95 Oximetry - Lab 05/03/21 05:01 05/03/21 05:01 Most recent lab results Calcium 7.9 mg/dL (8.4-10.2) L 05/03/21 05:01 Phosphorus 4.30 mg/dL (2.5-4.5) D 05/01/21 05:55 Magnesium 1.70 mg/dL (1.7-2.3) 05/01/21 05:55 Urine Creatinine 123.4 mg/dL (0.1-20.0) H 04/29/21 Unknown Urine Sodium 25 mmol/L 04/29/21 Unknown Medications & Allergies - Medications Allergies/Adverse Reactions: Allergies No Known Allergies Allergy (Verified 04/29/21 05:23) Home Medications: Home Medications Medication Instructions Recorded Confirmed Last Taken Type Efinaconazole [Jublia] 1 applic TP QDAY #4 andrew.w.[email or web address] 03/12/20 Unknown Rx Active Medications: Generic Name Dose Route Start Last Admin Trade Name Freq PRN Reason Stop Dose Admin Acetaminophen 650 mg 04/29/21 08:00 05/03/21 00:32 Acetaminophen 325 Mg Tab PO 650 mg Q6H PRN Administration Pain MILD(1-3)/Fever >100.5/GAUTAM Dextrose 0 ml 04/29/21 08:00 Dextrose 50% In Water (25gm) 50 Ml Syringe IV Q30MIN PRN Hypoglycemia Protocol Famotidine 10 mg 04/30/21 22:00 05/03/21 09:58 Famotidine 10 Mg Tab PO 10 mg BID JOANNE Administration Vancomycin HCl 1,750 mg/ 535 mls @ 333.333 mls/hr 05/02/21 17:00 05/02/21 20:17 Sodium Chloride IV 333.333 mls/hr Q24H JOANNE Administration Ertapenem 1 gm/ Sodium 50 mls @ 100 mls/hr 05/02/21 15:00 05/03/21 09:58 Chloride IV 05/08/21 10:29 100 mls/hr QDAY JOANNE Administration Insulin Glargine 25 units 05/01/21 22:00 05/02/21 21:05 Insulin Glargine 100 Units/Ml SUB-Q Not Given QHS [facility] Insulin Human Lispro 0 unit 04/30/21 11:30 05/03/21 08:11 Insulin Lispro 100 Unit/Ml SUB-Q Not Given ACHS [facility] Protocol Morphine Sulfate 4 mg 04/29/21 09:00 05/03/21 08:11 Morphine 4 Mg/1 Ml Inj IV 4 mg Q4H PRN Administration Pain , Severe (7-10) Naloxone HCl 0.1 mg 04/29/21 09:00 Naloxone 0.4 Mg/1 Ml Inj IV Q2MIN PRN Res Rate </= 8 or 02 SAT < 92% Oxycodone/Acetaminophen 1 tab 04/29/21 09:00 05/03/21 10:00 Oxycodone /Acetaminophen 5-325mg Tab PO 1 tab Q6H PRN Administration Pain, Moderate (4-6) Potassium Chloride 40 meq 05/03/21 11:12 Potassium Chloride Er 20 Meq Tab PO 05/03/21 11:13 ONCE ONE Sodium Chloride 10 ml 04/29/21 10:00 05/02/21 21:04 Sodium Chloride 0.9% 10 Ml Flush Syringe IV 10 ml BID JOANNE Administration Sodium Chloride 10 ml 04/29/21 09:00 Sodium Chloride 0.9% 10 Ml Flush Syringe IV PRN PRN LINE FLUSH
--- NOTE | 2021-05-03 12:30 | Progress Note ---
Assessment and Plan Septic shock Diabetic ketoacidosis Acute kidney injury Anemia Lactic acidosis Right gluteal abscess IVC filter in situ Obesity Medication and healthcare noncomplianc Hyponatremia Mild metabolic acidosis - home oxygen evaluation at discharge - discharge planning ok pulmonary-real - continue care as below otherwise; - wound care per RN / WCN under surgeons direction - prn supplemental oxygen to keep O2 sats > 90% - prn bronchodilators (NERY) with pulm hygiene per RT - avoid nephrotoxins, renally dose all medications - mobility protocols to prevent pressure ulcers - PT/OT as tolerated - Wound care per RN/WCT - continue accuchecks with glycemic control per SSI for target blood glucose < 180 mg/dL - tobacco abstinence strongly counseled at the bedside - GI & VTE prophylaxis - Flu & pneumovax per protocol - prn analgesia per pain score - continue other care per attending / other consultants ... re-evaluate in am & prn Subjective Date of service: 05/03/21 Principal diagnosis: Septic shock; DKA; JOMAR; Obesity; Right gluteal abscess Interval history: Patient is seen today for: Septic shock; DKA; JOMAR; Obesity; Right gluteal abscess Seen and examined at bedside; 24hour events reviewed; nursing and respiratory care staff consulted; no adverse overnight events reported to me; resting peacefully in bed; doing better; denies acute chest pain or palpitations; afebrile Objective Vital Signs - 12hr 05/03/21 05/03/21 05/03/21 03:21 03:22 07:38 Temperature 98.7 F 98.1 F Pulse Rate 75 76 Respiratory 18 18 Rate Blood Pressure 133/74 153/86 O2 Sat by Pulse 82 L 93 89 Oximetry 05/03/21 10:00 Temperature Pulse Rate Respiratory Rate Blood Pressure O2 Sat by Pulse 96 Oximetry Constitutional: no acute distress Eyes: non-icteric ENT: oropharynx moist Neck: supple, no lymphadenopathy, no JVD Effort: normal Ascultation: Bilateral: clear, diminished breath sounds Percussion: Bilateral: not dull Cardiovascular: regular rate and rhythm Gastrointestinal: normoactive bowel sounds, soft, non-tender, non-distended Integumentary: other (Right gluteal / perineal abscess) Extremities: no cyanosis, no edema, pulses normal, no ischemia or petechiae Neurologic: non-focal exam, pupils equal and round, CN II-XII normal, motor strength normal and Psychiatric: mood appropriate, affect normal CBC and BMP: 05/04/21 05:25 05/04/21 05:25 Abnormal lab findings: Abnormal Labs 04/29/21 04/29/21 04/29/21 01:54 01:54 03:05 WBC 22.1 H RBC Hgb 8.8 L Hct 28.5 L MCV 74 L MCH 23 L RDW 16.5 H Seg Neuts % (Manual) 71.0 H Lymphocytes % (Manual) 5.0 L Monocytes % (Manual) 10.0 H Nucleated RBC % Seg Neutrophils # Man 15.7 H Lymphocytes # (Manual) 1.1 L Monocytes # (Manual) 2.2 H VBG pH Sodium 124 L Potassium Chloride 88.7 L Carbon Dioxide 19 L BUN 33 H Creatinine 2.3 H Glucose 563 H* POC Glucose Hemoglobin A1c Lactic Acid 2.40 H* Calcium Alkaline Phosphatase 174 H Albumin 3.0 L Urine WBC (Auto) Urine Creatinine 04/29/21 04/29/21 04/29/21 04:48 04:48 04:48 WBC RBC Hgb Hct MCV MCH RDW Seg Neuts % (Manual) Lymphocytes % (Manual) Monocytes % (Manual) Nucleated RBC % Seg Neutrophils # Man Lymphocytes # (Manual) Monocytes # (Manual) VBG pH 7.282 L Sodium 124 L Potassium Chloride 89.3 L Carbon Dioxide 18 L BUN 35 H Creatinine 2.4 H Glucose 570 H* POC Glucose Hemoglobin A1c Lactic Acid 2.20 H* Calcium 8.1 L Alkaline Phosphatase Albumin Urine WBC (Auto) Urine Creatinine 04/29/21 04/29/21 04/29/21 07:04 08:23 08:29 WBC RBC Hgb Hct MCV MCH RDW Seg Neuts % (Manual) Lymphocytes % (Manual) Monocytes % (Manual) Nucleated RBC % Seg Neutrophils # Man Lymphocytes # (Manual) Monocytes # (Manual) VBG pH Sodium Potassium Chloride Carbon Dioxide BUN Creatinine Glucose POC Glucose 571 H 426 H Hemoglobin A1c Lactic Acid 2.60 H* Calcium Alkaline Phosphatase Albumin Urine WBC (Auto) Urine Creatinine 04/29/21 04/29/21 04/29/21 08:29 08:29 11:22 WBC RBC Hgb Hct MCV MCH RDW Seg Neuts % (Manual) Lymphocytes % (Manual) Monocytes % (Manual) Nucleated RBC % Seg Neutrophils # Man Lymphocytes # (Manual) Monocytes # (Manual) VBG pH Sodium 126 L 125 L Potassium Chloride 91.9 L 94.0 L Carbon Dioxide 15 L 12 L BUN 35 H 36 H Creatinine 2.3 H 2.3 H Glucose 429 H 368 H POC Glucose Hemoglobin A1c 15.1 H Lactic Acid Calcium 8.1 L 8.2 L Alkaline Phosphatase Albumin Urine WBC (Auto) Urine Creatinine 04/29/21 04/29/21 04/29/21 12:00 13:41 13:43 WBC RBC Hgb Hct MCV MCH RDW Seg Neuts % (Manual) Lymphocytes % (Manual) Monocytes % (Manual) Nucleated RBC % Seg Neutrophils # Man Lymphocytes # (Manual) Monocytes # (Manual) VBG pH Sodium 126 L Potassium Chloride 93.3 L Carbon Dioxide 14 L BUN 38 H Creatinine 2.4 H Glucose 399 H POC Glucose 395 H 367 H Hemoglobin A1c Lactic Acid Calcium 8.2 L Alkaline Phosphatase Albumin Urine WBC (Auto) Urine Creatinine 04/29/21 04/29/21 04/29/21 15:11 15:28 16:24 WBC RBC Hgb Hct MCV MCH RDW Seg Neuts % (Manual) Lymphocytes % (Manual) Monocytes % (Manual) Nucleated RBC % Seg Neutrophils # Man Lymphocytes # (Manual) Monocytes # (Manual) VBG pH Sodium 124 L Potassium Chloride 93.2 L Carbon Dioxide 16 L BUN 37 H Creatinine 2.6 H Glucose 379 H POC Glucose 356 H 350 H Hemoglobin A1c Lactic Acid Calcium 8.1 L Alkaline Phosphatase Albumin Urine WBC (Auto) Urine Creatinine 04/29/21 04/29/21 04/29/21 17:00 17:23 18:03 WBC RBC Hgb Hct MCV MCH RDW Seg Neuts % (Manual) Lymphocytes % (Manual) Monocytes % (Manual) Nucleated RBC % Seg Neutrophils # Man Lymphocytes # (Manual) Monocytes # (Manual) VBG pH Sodium 127 L Potassium Chloride 95.4 L Carbon Dioxide 16 L BUN 38 H Creatinine 2.8 H Glucose 348 H POC Glucose 332 H 296 H Hemoglobin A1c Lactic Acid Calcium 8.2 L Alkaline Phosphatase Albumin Urine WBC (Auto) Urine Creatinine 04/29/21 04/29/21 04/29/21 19:09 20:02 20:59 WBC RBC Hgb Hct MCV MCH RDW Seg Neuts % (Manual) Lymphocytes % (Manual) Monocytes % (Manual) Nucleated RBC % Seg Neutrophils # Man Lymphocytes # (Manual) Monocytes # (Manual) VBG pH Sodium 129 L Potassium Chloride 97.0 L Carbon Dioxide 15 L BUN 38 H Creatinine 3.0 H Glucose 232 H POC Glucose 268 H 241 H Hemoglobin A1c Lactic Acid Calcium Alkaline Phosphatase Albumin Urine WBC (Auto) Urine Creatinine 04/29/21 04/29/21 04/29/21 21:05 22:03 23:04 WBC RBC Hgb Hct MCV MCH RDW Seg Neuts % (Manual) Lymphocytes % (Manual) Monocytes % (Manual) Nucleated RBC % Seg Neutrophils # Man Lymphocytes # (Manual) Monocytes # (Manual) VBG pH Sodium Potassium Chloride Carbon Dioxide BUN Creatinine Glucose POC Glucose 207 H 196 H 163 H Hemoglobin A1c Lactic Acid Calcium Alkaline Phosphatase Albumin Urine WBC (Auto) Urine Creatinine 04/29/21 04/29/21 04/29/21 Unknown Unknown 23:59 WBC RBC Hgb Hct MCV MCH RDW Seg Neuts % (Manual) Lymphocytes % (Manual) Monocytes % (Manual) Nucleated RBC % Seg Neutrophils # Man Lymphocytes # (Manual) Monocytes # (Manual) VBG pH Sodium Potassium Chloride Carbon Dioxide BUN Creatinine Glucose POC Glucose 194 H Hemoglobin A1c Lactic Acid Calcium Alkaline Phosphatase Albumin Urine WBC (Auto) > 182.0 H Urine Creatinine 123.4 H 04/30/21 04/30/21 04/30/21 00:47 01:03 01:59 WBC RBC Hgb Hct MCV MCH RDW Seg Neuts % (Manual) Lymphocytes % (Manual) Monocytes % (Manual) Nucleated RBC % Seg Neutrophils # Man Lymphocytes # (Manual) Monocytes # (Manual) VBG pH Sodium 131 L Potassium Chloride Carbon Dioxide 17 L BUN 39 H Creatinine 2.8 H Glucose 206 H POC Glucose 191 H 168 H Hemoglobin A1c Lactic Acid Calcium Alkaline Phosphatase Albumin Urine WBC (Auto) Urine Creatinine 04/30/21 04/30/21 04/30/21 03:04 03:54 03:58 WBC RBC Hgb Hct MCV MCH RDW Seg Neuts % (Manual) Lymphocytes % (Manual) Monocytes % (Manual) Nucleated RBC % Seg Neutrophils # Man Lymphocytes # (Manual) Monocytes # (Manual) VBG pH Sodium Potassium Chloride Carbon Dioxide BUN Creatinine Glucose POC Glucose 168 H 183 H 157 H Hemoglobin A1c Lactic Acid Calcium Alkaline Phosphatase Albumin Urine WBC (Auto) Urine Creatinine 04/30/21 04/30/21 04/30/21 04:48 04:48 05:06 WBC 22.5 H RBC 3.56 L Hgb 8.2 L Hct 25.8 L MCV 73 L MCH 23 L RDW 17.0 H Seg Neuts % (Manual) 96.0 H Lymphocytes % (Manual) 2.0 L Monocytes % (Manual) Nucleated RBC % 1.0 H Seg Neutrophils # Man 21.6 H Lymphocytes # (Manual) 0.5 L Monocytes # (Manual) VBG pH Sodium 131 L Potassium Chloride Carbon Dioxide 17 L BUN 38 H Creatinine 2.3 H Glucose 207 H POC Glucose 186 H Hemoglobin A1c Lactic Acid Calcium 8.3 L Alkaline Phosphatase Albumin Urine WBC (Auto) Urine Creatinine 04/30/21 04/30/21 04/30/21 06:00 06:49 06:50 WBC RBC Hgb Hct MCV MCH RDW Seg Neuts % (Manual) Lymphocytes % (Manual) Monocytes % (Manual) Nucleated RBC % Seg Neutrophils # Man Lymphocytes # (Manual) Monocytes # (Manual) VBG pH Sodium Potassium Chloride Carbon Dioxide BUN Creatinine Glucose POC Glucose 170 H 181 H 167 H Hemoglobin A1c Lactic Acid Calcium Alkaline Phosphatase Albumin Urine WBC (Auto) Urine Creatinine 04/30/21 04/30/21 04/30/21 07:33 08:39 10:27 WBC RBC Hgb Hct MCV MCH RDW Seg Neuts % (Manual) Lymphocytes % (Manual) Monocytes % (Manual) Nucleated RBC % Seg Neutrophils # Man Lymphocytes # (Manual) Monocytes # (Manual) VBG pH Sodium 131 L Potassium 3.5 L Chloride Carbon Dioxide 16 L BUN 37 H Creatinine 2.4 H Glucose 179 H POC Glucose 147 H 127 H Hemoglobin A1c Lactic Acid Calcium 8.3 L Alkaline Phosphatase Albumin Urine WBC (Auto) Urine Creatinine 04/30/21 04/30/21 04/30/21 11:51 17:19 21:02 WBC RBC Hgb Hct MCV MCH RDW Seg Neuts % (Manual) Lymphocytes % (Manual) Monocytes % (Manual) Nucleated RBC % Seg Neutrophils # Man Lymphocytes # (Manual) Monocytes # (Manual) VBG pH Sodium Potassium Chloride Carbon Dioxide BUN Creatinine Glucose POC Glucose 130 H 242 H 226 H Hemoglobin A1c Lactic Acid Calcium Alkaline Phosphatase Albumin Urine WBC (Auto) Urine Creatinine 05/01/21 05/01/21 05/01/21 05:55 05:55 07:40 WBC 19.0 H RBC 3.30 L Hgb 7.3 L Hct 23.3 L MCV 71 L MCH 22 L RDW 17.4 H Seg Neuts % (Manual) Lymphocytes % (Manual) Monocytes % (Manual) Nucleated RBC % Seg Neutrophils # Man Lymphocytes # (Manual) Monocytes # (Manual) VBG pH Sodium 133 L Potassium Chloride 97.9 L Carbon Dioxide 17 L BUN 39 H Creatinine 2.1 H Glucose 232 H POC Glucose 224 H Hemoglobin A1c Lactic Acid Calcium 8.3 L Alkaline Phosphatase Albumin Urine WBC (Auto) Urine Creatinine 05/01/21 05/01/21 05/01/21 11:07 15:47 20:54 WBC RBC Hgb Hct MCV MCH RDW Seg Neuts % (Manual) Lymphocytes % (Manual) Monocytes % (Manual) Nucleated RBC % Seg Neutrophils # Man Lymphocytes # (Manual) Monocytes # (Manual) VBG pH Sodium Potassium Chloride Carbon Dioxide BUN Creatinine Glucose POC Glucose 200 H 189 H 171 H Hemoglobin A1c Lactic Acid Calcium Alkaline Phosphatase Albumin Urine WBC (Auto) Urine Creatinine 05/02/21 05/02/21 05/02/21 04:33 04:33 07:57 WBC 13.3 H RBC 3.14 L Hgb 7.3 L Hct 22.3 L MCV 71 L MCH 23 L RDW 17.2 H Seg Neuts % (Manual) Lymphocytes % (Manual) Monocytes % (Manual) Nucleated RBC % Seg Neutrophils # Man Lymphocytes # (Manual) Monocytes # (Manual) VBG pH Sodium 133 L Potassium Chloride Carbon Dioxide BUN 35 H Creatinine 1.6 H Glucose 176 H POC Glucose 172 H Hemoglobin A1c Lactic Acid Calcium 8.0 L Alkaline Phosphatase Albumin Urine WBC (Auto) Urine Creatinine 05/02/21 05/02/21 05/03/21 11:28 21:05 05:01 WBC 11.7 H RBC 3.27 L Hgb 7.5 L Hct 23.4 L MCV 72 L MCH 23 L RDW 17.4 H Seg Neuts % (Manual) Lymphocytes % (Manual) Monocytes % (Manual) Nucleated RBC % Seg Neutrophils # Man Lymphocytes # (Manual) Monocytes # (Manual) VBG pH Sodium Potassium Chloride Carbon Dioxide BUN Creatinine Glucose POC Glucose 173 H 128 H Hemoglobin A1c Lactic Acid Calcium Alkaline Phosphatase Albumin Urine WBC (Auto) Urine Creatinine 05/03/21 05/03/21 05/03/21 05:01 07:37 11:07 WBC RBC Hgb Hct MCV MCH RDW Seg Neuts % (Manual) Lymphocytes % (Manual) Monocytes % (Manual) Nucleated RBC % Seg Neutrophils # Man Lymphocytes # (Manual) Monocytes # (Manual) VBG pH Sodium 136 L Potassium 3.5 L Chloride Carbon Dioxide BUN 25 H Creatinine Glucose 115 H POC Glucose 106 H 131 H Hemoglobin A1c Lactic Acid Calcium 7.9 L Alkaline Phosphatase Albumin Urine WBC (Auto) Urine Creatinine Allied health notes reviewed: nursing
[2021-05-03] MEDS: VANCOMYCIN 1,750 MG in SODIUM CHLORIDE 0.9% 500 ML 500 ML IV SCH (17:21)
[2021-05-03] MEDS: INSULIN GLARGINE 100 UNITS/ML SUB-Q SCH (21:32)
[2021-05-04] MEDS: oxyCODONE /ACETAMINOPHEN 5-325MG TAB PO PRN ×2 (03:29→15:39)
[2021-05-04 06:36] LABS: Hematocrit 23.9 % (30.3-42.9); Hemoglobin 7.6 gm/dl (10.1-14.3); Mean Corpuscular HGB Conc 32 % (30-34); Mean Corpuscular Volume 72 fl (79-97); Red Blood Count 3.31 M/mm3 (3.65-5.03); Red Cell Distribution Width 17.3 % (13.2-15.2)
[2021-05-04 06:58] LABS: BUN/Creatinine Ratio 20; Blood Urea Nitrogen 16 mg/dL (7-17); Calcium 7.8 mg/dL (8.4-10.2); Hemolysis Index 0
[2021-05-04 08:16] LABS: Platelet Count 256 K/mm3 (140-440)
--- NOTE | 2021-05-04 08:40 | Discharge Summary ---
<KALINA BACH - Last Filed: 05/04/21 08:40> Providers - Providers Date of Admission: 04/29/21 05:06 Date of discharge: 05/04/21 Attending physician: KALINA BACH MD 04/29/21 05:20 Consult to Physician [CONS] Routine Comment: Consulting Provider: ANCA SWAN Physician Instructions: Reason For Exam: DKA, ICU management 04/29/21 14:07 Consult to Physician [CONS] Routine Comment: dr. foster noted/ shavon Consulting Provider: SHLOMO MORGAN Physician Instructions: Reason For Exam: R gluteal cellulitis 04/30/21 12:13 Consult to Physician [CONS] Routine Comment: left message/Vera Consulting Provider: TAB GARY Physician Instructions: Reason For Exam: JOMAR 05/01/21 10:49 Consult to Wound/ET Nurse [CONS] Routine Reason For Exam: wound eval 05/01/21 13:42 Consult to Case Management [CONS] Routine Services Needed at Discharge: [facility] Notified:: n/a Additional Physician Instructions: unfunded and will need wound clinic follow up on dc 05/02/21 10:43 Consult to Physician [CONS] Routine Comment: Consulting Provider: MASSIMO MELGOZA Physician Instructions: Reason For Exam: IV Abx management, s/p wound debridement Primary care physician: SENIOR COMMUNICATIONS SPECIALIST Hospitalization Condition: Stable Disposition: 01 HOME / SELF CARE / HOMELESS Exam - Constitutional Vitals: Temp Pulse Resp BP Pulse Ox 98.4 F 79 18 181/85 99 05/04/21 04:30 05/04/21 04:30 05/04/21 04:30 05/04/21 04:30 05/04/21 04:30 Plan Care Plan Goals: Follow-up with PCP. Start taking insulin as prescribed. Blood sugar control is important for wound healing. Goal blood sugars are between 80 and 140 while fasting. Take antibiotics until complete. Daily wound care instructions: Remove all packing from the wound. Need to cleanse wound with wound cleanser or soap and water. Pat gently with 1 piece of Kerlix moistened with 1/2 Dakins solution. You may follow-up in the wound care center as [facility]. Call [phone] to make an appointment. Or follow-up with PCP at [facility] and be referred to [facility] wound [facility] within the next 2 weeks. Assessment: Patient admitted with gluteal pain and fatigue. Found to be in diabetic ketoacidosis and to have a right gluteal cellulitis. She was admitted to ICU f or further care. General surgery was consulted for cellulitis. Hemoglobin A1c was found to be 15.5. Insulin drip was stopped. Patient was taken to the OR for debridement on 04/30. Surgical culture was negative for abnormal growth. Blood cultures remained negative at time of discharge. Urine culture was positive for Klebsiella oxytoca. Once stable she was discharged home with wound care instructions and instructions to follow-up with PCP. Follow up with: PRIMARY CARE, [Primary Care Provider] - 3-5 Days Prescriptions: Insulin Glargine,Hum.rec.anlog [Lantus Solostar] 25 unit SQ QHS 30 Days #7.5 ml Blood-Glucose Meter [Blood Glucose Monitoring] 1 each MC DAILY 30 Days #1 kit Sodium Hypochlorite [Dakin's Half Strength] 15 applic IR DAILY 30 Days #1 bottle metroNIDAZOLE [Flagyl] 500 mg PO Q8HR 4 Days #12 tablet Blood Sugar Diagnostic [Glucose Test Strip] 1 each MC DAILY #1 box Pen Needle, Diabetic [Insulin Pen Needle] 1 each MC DAILY 30 Days #1 box Lancets [Lancets Ultra Thin] 1 each MC DAILY #1 box levoFLOXacin [Levaquin] 750 mg PO QDAY 4 Days #4 tablet oxyCODONE /ACETAMINOPHEN [Percocet 5/325 mg] 1 tab PO Q6H PRN 3 Days #12 tablet PRN Reason: Pain, Moderate (4-6) <SHLOMO MORGAN - Last Filed: 05/04/21 12:42> Providers - Providers Date of Admission: 04/29/21 05:06 Attending physician: KALINA BACH MD 04/29/21 05:20 Consult to Physician [CONS] Routine Comment: Consulting Provider: ANCA SWAN Physician Instructions: Reason For Exam: DKA, ICU management 04/29/21 14:07 Consult to Physician [CONS] Routine Comment: dr. cristian bell/ shavon Consulting Provider: SHLOMO MORGAN Physician Instructions: Reason For Exam: R gluteal cellulitis 04/30/21 12:13 Consult to Physician [CONS] Routine Comment: left message/Vera Consulting Provider: TAB GARY Physician Instructions: Reason For Exam: JOMAR 05/01/21 10:49 Consult to Wound/ET Nurse [CONS] Routine Reason For Exam: wound eval 05/01/21 13:42 Consult to Case Management [CONS] Routine Services Needed at Discharge: [facility] Notified:: n/a Additional Physician Instructions: unfunded and will need wound clinic follow up on dc 05/02/21 10:43 Consult to Physician [CONS] Routine Comment: Consulting Provider: MASSIMO MELGOZA Physician Instructions: Reason For Exam: IV Abx management, s/p wound debridement Primary care physician: SENIOR COMMUNICATIONS SPECIALIST Exam - Constitutional Vitals: Temp Pulse Resp BP Pulse Ox 98.2 F 82 18 172/92 94 05/04/21 08:20 05/04/21 08:20 05/04/21 08:20 05/04/21 08:20 05/04/21 08:20 Plan Wound: per your surgeon's advice Additional Instructions: - Wound care instructions: Remove all packing from wound. Cleanse wound with wound cleanser or soap and water. Pack gently with one piece of kerlix moistened with 1/2 strength dakins solution. Perform packing changes daily. Keep covered with dry dressing. - Upon dc patient patient may follow up in wound care center at [facility]. May call [phone] to make appointment. Or may follow up with PCP at [facility] and be referred to [facility] wound [facility].
[2021-05-04] MEDS: INSULIN LISPRO 100 UNIT/ML SUB-Q SCH (08:59)
[2021-05-04 09:26] VITALS: BP 172/92
[2021-05-04] MEDS: MORPHINE 4 MG/1 ML INJ IV PRN (09:48)
[2021-05-04] MEDS: ERTAPENEM 1 GM in SODIUM CHLORIDE 0.9% 50 ML IV SCH (09:48)
[2021-05-04] MEDS: FAMOTIDINE 10 MG TAB PO SCH (09:50)
== END 2021-05-04 17:13 | disposition home health service (06) | DRG 853 ==
LOC: ED 23:36 → CC1 04-29 05:06 → 4A 05-02 14:00
PROVIDERS: ADMIT Internal Medicine Geriatric Medicine; ATTEND Student in an Organized Health Care Education/Training Program
PROC: 0JB90ZZ Excision of Buttock Subcutaneous Tissue and Fascia, Open Approach (ICD-10-PCS; principal; 2021-04-30)
DX: A41.9 Sepsis, unspecified organism (principal); R65.21 Severe sepsis with septic shock; E11.10 Type 2 diabetes mellitus with ketoacidosis without coma; N17.0 Acute kidney failure with tubular necrosis; L02.31 Cutaneous abscess of buttock; L03.317 Cellulitis of buttock; E87.1 Hypo-osmolality and hyponatremia; Z20.822 Contact with and (suspected) exposure to COVID-19; E66.9 Obesity, unspecified; E87.6 Hypokalemia; Z68.37 Body mass index [BMI] 37.0-37.9, adult; Z91.14 Patient's other noncompliance with medication regimen; D64.9 Anemia, unspecified
CPT/HCPCS: 36415; 71045; 74176; 80048; 80053; 80202; 81001; 82140; 82570; 82805; 82962; 83036; 83735; 84100; 84145; 84300; 84703; 85007; 85025; 85027; 87040; 87075; 87076; 87086; 87116; 87186; 94760; G0378; J7502; Q0162; Q9967; J0330; J0696; J1170; J1335; J1815; J2001; J2270; J2405; J2704; J3010; J3370; J7030; J7040; J7042

== ENCOUNTER 2021-05-18 14:47 | Emergency (ER) | payer SELFPAY ==
[2021-05-18 15:57] LABS: Basophils # (Auto) 0.1 K/mm3 (0.0-0.1); Basophils % (Auto) 2.1 % (0.0-1.8); Eosinophils # (Auto) 0.2 K/mm3 (0.0-0.4); Eosinophils % (Auto) 3.4 % (0.0-4.3); Hematocrit 31.8 % (30.3-42.9); Lymphocytes # (Auto) 1.6 K/mm3 (1.2-5.4); Lymphocytes % (Auto) 27.9 % (13.4-35.0); Mean Corpuscular HGB Conc 32 % (30-34); Mean Corpuscular Volume 72 fl (79-97); Monocytes # (Auto) 0.3 K/mm3 (0.0-0.8); Platelet Count 635 K/mm3 (140-440); Red Blood Count 4.41 M/mm3 (3.65-5.03); Red Cell Distribution Width 18.5 % (13.2-15.2)
[2021-05-18] MEDS ORDERED: ACETAMINOPHEN 500 MG TAB PO ONE (16:20)
[2021-05-18] MEDS ORDERED: amLODIPine 5 MG TAB PO ONE (16:20)
[2021-05-18] MEDS ORDERED: METOCLOPRAMIDE 10 MG TAB PO ONE (16:20)
--- NOTE | 2021-05-18 16:23 | Emergency Department Report ---
ED General Adult HPI - General Chief complaint: High BP Stated complaint: High blood pressure, headache, wound evaluation PUI?: No Time Seen by Provider: 05/18/21 16:04 Source: patient, RN notes reviewed, old records reviewed Mode of arrival: Ambulatory Limitations: No Limitations - History of Present Illness Initial comments: The patient is a 40-year-old female. She has a history of obesity, uncontrolled diabetes, elevated blood pressure, reports that she is not , reports that she has not delivered her given in the past 6 weeks, and was also recently admitted to this hospital for right gluteal abscess and cellulitis. She had an incision and drainage performed, was discharged with instructions to follow-up with outpatient wound care, either here, or [facility]. She was also discharged with home wound care. The patient reports that she has not been able to follow-up with an outpatient wound care center, secondary to lack of insurance. She also reports that she only had 5 visits for wound care, and the visits is subsequently stopped, secondary to the patient's not having insurance. The patient presents to the ER today with a complaint of anxiety, high blood pressure, and request for right gluteal wound evaluation. She has a mild headache, which is frontal and bitemporal, not sudden or thunderclap in nature, not maximal in intensity, and not the worst headache of her life. She denies extremity weakness and numbness. She currently does not take medications for blood pressure that she is aware of. Denies chest pain, abdominal pain, vomiting, diaphoresis and urinary symptoms. -: Gradual, days(s) Location: head, lower extremity (Right posterior gluteal cheek) Severity scale (0 -10): 8 Quality: aching Consistency: intermittent Improves with: none Worsens with: none - Related Data Previous Rx's Medication Instructions Recorded Last Taken Type Blood Sugar Diagnostic [Glucose 1 each MC DAILY #1 box 05/04/21 Unknown Rx Test Strip] Blood-Glucose Meter [Blood Glucose 1 each MC DAILY 30 Days #1 kit 05/04/21 Unknown Rx Monitoring] Insulin Glargine,Hum.rec.anlog 25 unit SQ QHS 30 Days #7.5 ml 05/04/21 Unknown Rx [Lantus Solostar] Lancets [Lancets Ultra Thin] 1 each MC DAILY #1 box 05/04/21 Unknown Rx Pen Needle, Diabetic [Insulin Pen 1 each MC DAILY 30 Days #1 box 05/04/21 Unknown Rx Needle] levoFLOXacin [Levaquin] 750 mg PO QDAY 4 Days #4 tablet 05/04/21 Unknown Rx metroNIDAZOLE [Flagyl] 500 mg PO Q8HR 4 Days #12 tablet 05/04/21 Unknown Rx Acetaminophen [Non-Aspirin Extra 500 mg PO Q6HR PRN #30 tablet 05/18/21 Unknown Rx Strength] Ibuprofen [Motrin] 600 mg PO Q8H PRN #30 tablet 05/18/21 Unknown Rx Metoclopramide [Reglan] 10 mg PO QID PRN #30 tablet 05/18/21 Unknown Rx Sodium Hypochlorite [Dakin's Half 15 applic IR DAILY 30 Days #1 05/18/21 Unknown Rx Strength] bottle amLODIPine 10 mg PO DAILY #30 tab 05/18/21 Unknown Rx Allergies Allergy/AdvReac Type Severity Reaction Status Date / Time No Known Allergies Allergy Verified 04/29/21 05:23 ED Review of Systems ROS: Stated complaint: HYPERTENSION Other details as noted in HPI Constitutional: denies: fever Eyes: denies: eye discharge, vision change ENT: denies: epistaxis Respiratory: denies: cough Cardiovascular: denies: chest pain Gastrointestinal: denies: abdominal pain Genitourinary: denies: dysuria Musculoskeletal: myalgia Skin: lesions Neurological: headache. denies: weakness Psychiatric: anxiety Hematological/Lymphatic: denies: easy bleeding ED Past Medical Hx - Past Medical History Hx Hypertension: No Hx Congestive Heart Failure: No Hx Diabetes: Yes Hx Seizures: No Hx Asthma: No Hx COPD: No Hx HIV: No - Surgical History Additional Surgical History: Right Hip - Social History Smoking Status: Never Smoker - Medications Home Medications: Home Medications Medication Instructions Recorded Confirmed Last Taken Type Blood Sugar Diagnostic [Glucose 1 each MC DAILY #1 box 05/04/21 Unknown Rx Test Strip] Blood-Glucose Meter [Blood Glucose 1 each MC DAILY 30 Days #1 kit 05/04/21 Unknown Rx Monitoring] Insulin Glargine,Hum.rec.anlog 25 unit SQ QHS 30 Days #7.5 ml 05/04/21 Unknown Rx [Lantus Solostar] Lancets [Lancets Ultra Thin] 1 each MC DAILY #1 box 05/04/21 Unknown Rx Pen Needle, Diabetic [Insulin Pen 1 each MC DAILY 30 Days #1 box 05/04/21 Unknown Rx Needle] levoFLOXacin [Levaquin] 750 mg PO QDAY 4 Days #4 tablet 05/04/21 Unknown Rx metroNIDAZOLE [Flagyl] 500 mg PO Q8HR 4 Days #12 tablet 05/04/21 Unknown Rx Acetaminophen [Non-Aspirin Extra 500 mg PO Q6HR PRN #30 tablet 05/18/21 Unknown Rx Strength] Ibuprofen [Motrin] 600 mg PO Q8H PRN #30 tablet 05/18/21 Unknown Rx Metoclopramide [Reglan] 10 mg PO QID PRN #30 tablet 05/18/21 Unknown Rx Sodium Hypochlorite [Dakin's Half 15 applic IR DAILY 30 Days #1 05/18/21 Unknown Rx Strength] bottle amLODIPine 10 mg PO DAILY #30 tab 05/18/21 Unknown Rx ED Physical Exam - General Limitations: No Limitations General appearance: alert, anxious, obese - Head Head exam: Present: atraumatic, normocephalic - Eye Eye exam: Present: normal appearance, EOMI, other (Visual acuity intact to finger counting, color perception, reading at a close distance). Absent: nystagmus - ENT ENT exam: Present: normal exam, normal orophraynx, mucous membranes moist, normal external ear exam - Neck Neck exam: Present: normal inspection, full ROM. Absent: tenderness, meningismus - Respiratory Respiratory exam: Present: normal lung sounds bilaterally. Absent: respiratory distress, wheezes, rales, rhonchi, stridor, decreased breath sounds - Cardiovascular Cardiovascular Exam: Present: normal rhythm, tachycardia, normal heart sounds. Absent: bradycardia, irregular rhythm, systolic murmur, diastolic murmur, rubs, gallop - GI/Abdominal GI/Abdominal exam: Present: soft. Absent: distended, tenderness, guarding, rebound, rigid, pulsatile mass - Rectal Rectal exam: Present: normal inspection (Patient provided verbal consent for gluteal examination, chaperoned by ANNA BOTELLO), other (There is no gluteal tenderness noted. There is appropriate granulation tissue noted. Wound dressing in place, there is a oval-shaped approximately 8 x 4 x 5 cm wounds on the right inferior medial gluteal cheek, without redness, pus or streaking) - Extremities Exam Extremities exam: Present: normal inspection, full ROM, pedal edema (2+ edema in the bilateral lower extremities), other (2+ pulses noted in the bilateral upper and lower extremities. There is no palpable cord. negative Homans sign. Muscular compartments are soft. The pelvis is stable.). Absent: calf tenderness - Back Exam Back exam: Present: normal inspection, full ROM. Absent: tenderness, CVA tenderness (R), CVA tenderness (L), paraspinal tenderness, vertebral tenderness - Neurological Exam Neurological exam: Present: alert, oriented X3, normal gait, other (No facial droop. Tongue midline. Extraocular movements intact bilaterally. Facial sensation intact to light touch in V1, V2, V3 distribution bilaterally. 5 and a 5 strength in 4 extremities. Sensation intact to light touch in 4 extremities .). Absent: motor sensory deficit - Psychiatric Psychiatric exam: Present: anxious - Skin Skin exam: Present: warm, dry, intact, normal color. Absent: rash ED Course Vital Signs 05/18/21 05/18/21 05/18/21 14:54 18:58 19:35 Temperature 97.9 F Pulse Rate 111 H 96 H 93 H Respiratory 16 14 14 Rate Blood Pressure 208/110 169/100 150/92 [Right] O2 Sat by Pulse 99 96 Oximetry - Reevaluation(s) Reevaluation #1: 05/18/21 16:44 Differential diagnosis, including but not limited to: Migraine headache, tension headache, cluster headache, hypertension, encounter for wound care, encounter for case management evaluation, obesity, uncontrolled diabetes Assessment and plan: 40-year-old female, who is afebrile, with chronically elevated blood pressure, tachycardic, likely secondary to anxiety, who presents to the ER today with request for wound evaluation, anxiety, headache, inability to follow-up as an outpatient. Patient states that headache is not sudden or thunderclap in nature, not maximal in intensity, and not described as the worst headache of her life. She reports very poor sleep hygiene, no trauma, no recent chiropractic manipulation. GCS 15, NIH score of 0, neurologic examination benign unremarkable, treat with Tylenol and Reglan, and ibuprofen if not , and if no renal insufficiency noted on laboratory studies. The patient states she has not delivered her given in the past 6 weeks. Hypertension chronic, patient not discussed diet lifestyle modifications, will initiate labetalol here in the emergency room. The right gluteal wound does not appear to be superinfected. The patient is applying Dakin's dressings twice daily. The patient reports that she has not f ollowed up with outpatient wound care clinic, either here, or [facility], secondary to lack of insurance. In addition, she also informs me that she only had 5 wound care visits at home, then wound visit stopped secondary to lack of insurance. Contacted case management MARLI BLANCO, and I discussed the patient's history, physical, and overall social situation. Patient does not require emergent intervention at this time, but the aforementioned immigration case manager states that she will follow-up with our case management social work department, to see if the patient can receive additional resources for outpatient care. Primary issue today appears to be a lack of access to outpatient care. The patient has chronically elevated blood pressure. Presuming normal laboratory studies, and improvement in vital signs which we anticipate, it would be reasonable to discharge this patient with instructions for diet lifestyle modification, weight loss, outpatient follow-up, case management follow-up, and outpatient primary care 05/18/21 16:45 05/18/21 16:47 05/18/21 19:23 Patient reassessed multiple times by myself. Her tachycardia resolved. Her elevated blood pressure resolved. She was noted multiple times to be on her cell phone, and not in any acute distress. She is suitable for discharge with outpatient follow-up. ED Medical Decision Making - Lab Data Result diagrams: 05/18/21 15:16 05/18/21 15:16 Vital Signs 05/18/21 14:54 Temperature 97.9 F Pulse Rate 111 H Respiratory 16 Rate Blood Pressure 208/110 [Right] O2 Sat by Pulse 99 Oximetry Lab Results 05/18/21 05/18/21 Range/Units 15:16 15:16 WBC 5.6 (4.5-11.0) K/mm3 RBC 4.41 (3.65-5.03) M/mm3 Hgb 10.0 L (10.1-14.3) gm/dl Hct 31.8 (30.3-42.9) % MCV 72 L (79-97) fl MCH 23 L (28-32) pg MCHC 32 (30-34) % RDW 18.5 H (13.2-15.2) % Plt Count 635 H (140-440) K/mm3 Lymph % (Auto) 27.9 (13.4-35.0) % [place] % (Auto) 5.0 (0.0-7.3) % Eos % (Auto) 3.4 (0.0-4.3) % Baso % (Auto) 2.1 H (0.0-1.8) % Lymph # (Auto) 1.6 (1.2-5.4) K/mm3 [place] # (Auto) 0.3 (0.0-0.8) K/mm3 Eos # (Auto) 0.2 (0.0-0.4) K/mm3 Baso # (Auto) 0.1 (0.0-0.1) K/mm3 Seg Neutrophils % 61.6 (40.0-70.0) % Seg Neutrophils # 3.4 (1.8-7.7) K/mm3 Sodium 139 (137-145) mmol/L Potassium 4.4 (3.6-5.0) mmol/L Chloride 99.7 (98-107) mmol/L Carbon Dioxide 25 (22-30) mmol/L Anion Gap 19 mmol/L BUN 15 (7-17) mg/dL Creatinine 0.9 (0.6-1.2) mg/dL Estimated GFR > 60 ml/min BUN/Creatinine Ratio 17 % Glucose 106 H (65-100) mg/dL Calcium 9.0 (8.4-10.2) mg/dL Total Bilirubin 0.20 (0.1-1.2) mg/dL AST 15 (5-40) units/L ALT 11 (7-56) units/L Alkaline Phosphatase 141 H (35-129) units/L Total Protein 8.4 H (6.3-8.2) g/dL Albumin 3.5 L (3.9-5) g/dL Albumin/Globulin Ratio 0.7 % Critical care attestation.: If time is entered above; I have spent that time in minutes in the direct care of this critically ill patient, excluding procedure time. ED Disposition Clinical Impression: Visit for wound check, Elevated blood pressure reading, Case management patient, Headache, Obesity Disposition: 01 HOME / SELF CARE / HOMELESS Is pt being admited?: No Does the pt Need Aspirin: No Condition: Stable Additional Instructions: As we discussed, recent hemoglobin A1c of 15, elevated blood pressure, and body mass index of 41.3 indicate that the patient requires significant diet and lifestyle modifications. This means exercise as tolerated, physical activity as tolerated, avoidance of sugar, simple carbohydrates, sugary drinks, consumption of plenty of fiber, vegetables and lean protein. Patient may reference the [place] [employer] website for instructions on how to improve and construct an appropriate diabetic diet. Long-term complications of excessive body mass index, uncontrolled diabetes and hypertension are risk factors for stroke, heart attack, disability, paralysis, and loss of quality of life. Please continue current daily dressing changes. These follow-up with an outp atient wound center soon as possible to initiate outpatient wound care. Patient's case was referred to case management here at this hospital. The patient should expect a phone call from case management within the next day or so. However, the patient is also strongly encouraged to obtain outpatient appointment at the wound care center, either here, or to [facility], to continue outpatient wound care. Failing to do so may result in reinfection of the wound, which could cause disability, paralysis, loss of quality of life and debility. It is therefore very important to make sure that the patient follows up for appropriate outpatient wound care. As we discussed, the patient may also seek outpatient insurance, such as going to the [email or web address] website. Take the Norvas for elevated blood pressure. Avoid consumption of tobacco, alcohol, and smoke products. Follow-up with a primary care doctor within the next month. Follow-up with your general surgeon within the next 2 weeks. Please return to the emergency room right away with new pain, worsened pain, migration of pain, rectal vomiting, change in mental status, confusion, inability to tolerate liquid feeds, new, worsened or different symptoms not present on the initial emergency room evaluation Prescriptions: amLODIPine 10 mg PO DAILY #30 tab Sodium Hypochlorite [Dakin's Half Strength] 15 applic IR DAILY 30 Days #1 bottle Ibuprofen [Motrin] 600 mg PO Q8H PRN #30 tablet PRN Reason: Pain Acetaminophen [Non-Aspirin Extra Strength] 500 mg PO Q6HR PRN #30 tablet PRN Reason: Pain , Severe (7-10) Metoclopramide [Reglan] 10 mg PO QID PRN #30 tablet PRN Reason: Headache Referrals: [facility] [Provider Group] - 3-5 Days [facility] [Outside] - 3-5 Days SLHOMO MORGAN DO [Staff Physician] - 3-5 Days
[2021-05-18 16:44] LABS: Alanine Aminotransferase 11 units/L (7-56); Albumin 3.5 g/dL (3.9-5); BUN/Creatinine Ratio 17; Blood Urea Nitrogen 15 mg/dL (7-17); Hemolysis Index 1
[2021-05-18] MEDS: amLODIPine 5 MG TAB PO ONE ×2 (17:17→19:36)
[2021-05-18] MEDS ORDERED: IBUPROFEN 600 MG TAB PO ONE (17:41)
[2021-05-18 19:37] VITALS: BP 150/92
== END 2021-05-18 19:39 | disposition home or self-care (01) ==
LOC: ED 14:47
DX: R03.0 Elevated blood-pressure reading, without diagnosis of hypertension (principal); R51.9 Headache, unspecified; E66.9 Obesity, unspecified; E11.9 Type 2 diabetes mellitus without complications
CPT/HCPCS: 36415; 80053; 82550; 84702; 85025; 99283

== ENCOUNTER 2021-05-27 13:36 | Emergency (ER) | payer SELFPAY ==
[2021-05-27 14:32] VITALS: BP 131/87
--- NOTE | 2021-05-27 15:10 | Emergency Department Report ---
ED General Adult HPI - General Chief complaint: Wound/Laceration Stated complaint: OPEN WOUND Time Seen by Provider: 05/27/21 14:23 Source: patient Mode of arrival: Ambulatory Limitations: No Limitations - History of Present Illness Initial comments: 40-year-old female with a past medical history of diabetes and a chronic wound to her buttocks presents to the ER today with concerns for possible infection to her wound. Patient states that she has had this wound since having surgery to the area last month. She states that she currently does not have insurance and is unable to follow-up with a general surgeon or the wound care clinic so her 16-year-old son has been helping to take care of it. She has continued to pack it and keep it clean but recently she noticed that there was increased drainage, and odor coming from it and felt like she was having chills and she was instructed in the past that if she ever develops any of the symptoms to come to the ER. She did not check her temperature at home. She states that her blood sugar has been running well. She reports no other symptoms at this time. MD Complaint: Wound infection/drainage -: days(s) Severity scale (0 -10): 8 - Related Data Previous Rx's Medication Instructions Recorded Last Taken Type Blood Sugar Diagnostic [Glucose 1 each MC DAILY #1 box 05/04/21 Unknown Rx Test Strip] Blood-Glucose Meter [Blood Glucose 1 each MC DAILY 30 Days #1 kit 05/04/21 Unknown Rx Monitoring] Insulin Glargine,Hum.rec.anlog 25 unit SQ QHS 30 Days #7.5 ml 05/04/21 Unknown Rx [Lantus Solostar] Lancets [Lancets Ultra Thin] 1 each MC DAILY #1 box 05/04/21 Unknown Rx Pen Needle, Diabetic [Insulin Pen 1 each MC DAILY 30 Days #1 box 05/04/21 Unknown Rx Needle] levoFLOXacin [Levaquin] 750 mg PO QDAY 4 Days #4 tablet 05/04/21 Unknown Rx metroNIDAZOLE [Flagyl] 500 mg PO Q8HR 4 Days #12 tablet 05/04/21 Unknown Rx Acetaminophen [Non-Aspirin Extra 500 mg PO Q6HR PRN #30 tablet 05/18/21 Unknown Rx Strength] Ibuprofen [Motrin] 600 mg PO Q8H PRN #30 tablet 05/18/21 Unknown Rx Metoclopramide [Reglan] 10 mg PO QID PRN #30 tablet 05/18/21 Unknown Rx Sodium Hypochlorite [Dakin's Half 15 applic IR DAILY 30 Days #1 05/18/21 Unknown Rx Strength] bottle amLODIPine 10 mg PO DAILY #30 tab 05/18/21 Unknown Rx Clindamycin [Clindamycin CAP] 300 mg PO Q8H #30 cap 05/27/21 Unknown Rx Allergies Allergy/AdvReac Type Severity Reaction Status Date / Time No Known Allergies Allergy Verified 05/27/21 14:16 ED Review of Systems ROS: Stated complaint: OPEN WOUND Other details as noted in HPI Comment: All other systems reviewed and negative Constitutional: denies: chills, fever Eyes: denies: eye pain, eye discharge, vision change ENT: denies: ear pain, throat pain Respiratory: denies: cough, shortness of breath, SOB with exertion, SOB at rest, wheezing Cardiovascular: denies: chest pain, palpitations Endocrine: no symptoms reported Gastrointestinal: denies: abdominal pain, nausea, diarrhea, constipation, hematemesis, melena, hematochezia Genitourinary: denies: urgency, dysuria, discharge Skin: other (draining, wound to buttocks with odor) Neurological: denies: headache, weakness, numbness, paresthesias, confusion, abnormal gait, vertigo Psychiatric: denies: anxiety, depression, auditory hallucinations, visual hallucinations, homicidal thoughts ED Past Medical Hx - Past Medical History Hx Hypertension: No Hx Congestive Heart Failure: No Hx Diabetes: Yes Hx Seizures: No Hx Asthma: No Hx COPD: No Hx HIV: No - Surgical History Additional Surgical History: Right Hip - Social History Smoking Status: Never Smoker Substance Use Type: None - Medications Home Medications: Home Medications Medication Instructions Recorded Confirmed Last Taken Type Blood Sugar Diagnostic [Glucose 1 each MC DAILY #1 box 05/04/21 05/27/21 Unknown Rx Test Strip] Blood-Glucose Meter [Blood Glucose 1 each MC DAILY 30 Days #1 kit 05/04/21 05/27/21 Unknown Rx Monitoring] Insulin Glargine,Hum.rec.anlog 25 unit SQ QHS 30 Days #7.5 ml 05/04/21 05/27/21 Unknown Rx [Lantus Solostar] Lancets [Lancets Ultra Thin] 1 each MC DAILY #1 box 05/04/21 05/27/21 Unknown Rx Pen Needle, Diabetic [Insulin Pen 1 each MC DAILY 30 Days #1 box 05/04/21 05/27/21 Unknown Rx Needle] levoFLOXacin [Levaquin] 750 mg PO QDAY 4 Days #4 tablet 05/04/21 05/27/21 Unknown Rx metroNIDAZOLE [Flagyl] 500 mg PO Q8HR 4 Days #12 tablet 05/04/21 05/27/21 Unknown Rx Acetaminophen [Non-Aspirin Extra 500 mg PO Q6HR PRN #30 tablet 05/18/21 05/27/21 Unknown Rx Strength] Ibuprofen [Motrin] 600 mg PO Q8H PRN #30 tablet 05/18/21 05/27/21 Unknown Rx Metoclopramide [Reglan] 10 mg PO QID PRN #30 tablet 05/18/21 05/27/21 Unknown Rx Sodium Hypochlorite [Dakin's Half 15 applic IR DAILY 30 Days #1 05/18/21 05/27/21 Unknown Rx Strength] bottle amLODIPine 10 mg PO DAILY #30 tab 05/18/21 05/27/21 Unknown Rx Clindamycin [Clindamycin CAP] 300 mg PO Q8H #30 cap 05/27/21 Unknown Rx ED Physical Exam - General Limitations: No Limitations General appearance: alert, in no apparent distress, obese - Head Head exam: Present: atraumatic, normocephalic, normal inspection - Neck Neck exam: Present: normal inspection, full ROM - Respiratory Respiratory exam: Present: normal lung sounds bilaterally. Absent: respiratory distress, wheezes, rales, rhonchi - Cardiovascular Cardiovascular Exam: Present: regular rate, normal rhythm, normal heart sounds - Neurological Exam Neurological exam: Present: alert, oriented X3, CN II-XII intact, normal gait - Psychiatric Psychiatric exam: Present: normal affect, normal mood - Skin Skin exam: Present: other (Chronic wound noted to right in the butt cheek; packing noted; no apparent drainage, no odor noted, no associated cellulitis or associated fluctuance or induration.) ED Course Vital Signs 05/27/21 14:13 Temperature 98.2 F Pulse Rate 69 Respiratory 14 Rate Blood Pressure 131/87 Blood Pressure 131/87 [Left] O2 Sat by Pulse 100 Oximetry ED Medical Decision Making - Medical Decision Making Patient has a chronic wound to her buttocks which she states has been draining, and has a foul odor. Examination of the area shows chronic wound but overall does not appear to be significantly infected no apparent drainage noted no associated cellulitis no apparent foul odor and no tenderness to the area. Patient is afebrile and she is overall not toxic or ill-appearing. Informed patient that the wound appears to be looking good AND I do not see any significant signs of infection, but given her history, and her subjective symptoms, she will be started on antibiotics as precaution. She also be given referral to our local wound care clinic. Encouraged her to continue keeping the wound clean as she has been doing and controlling her sugars. Patient expressed understanding and agree with plan. Patient stable at time of discharge Critical care attestation.: If time is entered above; I have spent that time in minutes in the direct care of this critically ill patient, excluding procedure time. ED Disposition Clinical Impression: Wound of buttock, Chronic wound of extremity Disposition: HOME / SELF CARE / HOMELESS Is pt being admited?: No Does the pt Need Aspirin: No Condition: Stable Instructions: Wound Packing, Wound Care, Adult Additional Instructions: I recommend that you continue keeping the area clean as you have been doing. I do recommend that you try following up with the local wound care that we have here at the hospital. Start taking the clindamycin as prescribed. Continue keeping your sugar under good control. Return to the ER if your symptoms changes or worsens in any way. Prescriptions: Clindamycin [Clindamycin CAP] 300 mg PO Q8H #30 cap [facility]errals[facility] [[facility]] - 3-5 Days Time of Disposition: 15:15
== END 2021-05-27 15:33 | disposition home or self-care (01) ==
LOC: ED 13:36
DX: S31.809D Unspecified open wound of unspecified buttock, subsequent encounter (principal); E11.9 Type 2 diabetes mellitus without complications; X58.XXXD Exposure to other specified factors, subsequent encounter; Z79.899 Other long term (current) drug therapy; Z98.890 Other specified postprocedural states
CPT/HCPCS: 99282